=== PATIENT | female | born 1965 | race Caucasian/White ===

== ENCOUNTER 2018-07-19 09:03 | Observation (INO) | payer OTHER ==
[~2018-07-19] VITALS: Ht 157.5 cm; Wt 52.5 kg
[~2018-07-19 09:03] MED LIST: Cyclobenzaprine5 MG PO; IBUP800 PO; METPRE4DP PO
[2018-07-19 09:54] LABS: BASOPHILS ABSOLUTE AUTO 0.06 K/mm3 (0.00-0.23); BASOPHILS PERCENT AUTO 1 % (0-2); EOSINOPHILS ABSOLUTE AUTO 0.05 K/mm3 (0.00-0.68); EOSINOPHILS PERCENT AUTO 1 % (0-6); Hematocrit 41.5 % (33.0-51.0); Hemoglobin 14.8 g/dL (11.5-16.0); IMMATURE GRAN ABSOLUTE AUTO 0.06 K/mm3 (0.00-0.10); IMMATURE GRAN PERCENT AUTO 1 % (0-1); LYMPHOCYTES ABSOLUTE AUTO 1.95 K/mm3 (0.84-5.20); LYMPHOCYTES PERCENT AUTO 18 % (21-46); MONOCYTES ABSOLUTE AUTO 0.48 K/mm3 (0.16-1.47); MONOCYTES PERCENT AUTO 4 % (4-13); Mean Corpuscular HGB Conc 35.7 g/dL (31.5-36.5); Mean Corpuscular Volume 95 fL (80-100); Mean Platelet Volume 10.2 fL (9.1-12.4); NEUTROPHILS ABSOLUTE AUTO 8.27 K/mm3 (1.96-9.15); NEUTROPHILS PERCENT AUTO 76 % (41-73); Platelet Count 272 K/mm3 (150-400); RDW Coefficient Variation 11.9 % (11.7-14.2); RDW Standard Deviation 41.7 fL (35.1-46.3); Red Blood Cell Count 4.35 M/mm3 (3.80-5.20); White Blood Cell Count 10.87 K/mm3 (4.00-11.30)
[2018-07-19 10:11] LABS: Alanine Aminotransfer (ALT/SGP 17 U/L (12-78); Albumin, Blood 3.4 g/dL (3.4-5.0); Albumin/Globulin Ratio 0.9 (0.8-1.8); Alk Phos 119 U/L (50-136); Anion Gap 7 mmol/L (6-16); Aspartate Aminotrans (AST/SGOT 14 U/L (12-37); Bilirubin, Total 0.5 mg/dL (0.1-1.0); Blood Urea Nitrogen 3 mg/dL (8-24); Bun/Creatinine Ratio 5.8 (12.0-20.0); CO2, Blood 28 mmol/L (21-32); Calcium, Blood 8.4 mg/dL (8.5-10.1); Chloride, Blood 98 mmol/L (98-108); Creatinine, Blood 0.52 mg/dL (0.40-1.00); Globulin, Blood 3.8 g/dL (2.2-4.0); Glomerular Filtration Rate >60 (60-); Glucose, Blood 433 mg/dL (70-99); Potassium, Blood 3.6 mmol/L (3.5-5.5); Sodium, Blood 133 mmol/L (136-145); Total Protein, Blood 7.2 g/dL (6.4-8.2); Troponin I 0.026 ng/mL (0.000-0.040)
[2018-07-20 03:35] LABS: Hematocrit 38.7 % (33.0-51.0); Hemoglobin 13.5 g/dL (11.5-16.0); Mean Corpuscular HGB 33.7 pg (26.0-34.0); Mean Corpuscular HGB Conc 34.9 g/dL (31.5-36.5); Mean Corpuscular Volume 97 fL (80-100); Mean Platelet Volume 10.2 fL (9.1-12.4); Platelet Count 264 K/mm3 (150-400); RDW Coefficient Variation 12.1 % (11.7-14.2); RDW Standard Deviation 43.7 fL (35.1-46.3); Red Blood Cell Count 4.01 M/mm3 (3.80-5.20); White Blood Cell Count 11.05 K/mm3 (4.00-11.30)
[2018-07-20 03:53] LABS: Anion Gap 7 mmol/L (6-16); Blood Urea Nitrogen 5 mg/dL (8-24); Bun/Creatinine Ratio 11.6 (12.0-20.0); CO2, Blood 28 mmol/L (21-32); Calcium, Blood 8.5 mg/dL (8.5-10.1); Chloride, Blood 102 mmol/L (98-108); Creatinine, Blood 0.43 mg/dL (0.40-1.00); Glomerular Filtration Rate >60 (60-); Glucose, Blood 168 mg/dL (70-99); Potassium, Blood 3.5 mmol/L (3.5-5.5); Sodium, Blood 137 mmol/L (136-145)
[2018-07-20] MEDS ORDERED: Aspir-Trin325 MG PO (09:08)
[2018-07-20] MEDS ORDERED: ACET325 PO (09:08)
[2018-07-20] MEDS ORDERED: GLIM2 PO (09:09)
[2018-07-20] MEDS ORDERED: METO50 PO (09:09)
[2018-07-20] MEDS ORDERED: Advil200 M1 PO (09:09)
[2018-07-22] MEDS ORDERED: Nystop60 GM TOP (10:04)
[2018-07-22] MEDS ORDERED: Norco 5-325 Ta1 EACH PO (10:04)
== END 2018-07-20 11:51 | disposition home or self-care (01) ==
LOC: ER 09:03 → PCU 09:04
PROVIDERS: Emergency Medicine; Hospitalist
DX: R07.9 Chest pain, unspecified (principal); R94.31 Abnormal electrocardiogram [ECG] [EKG]; E11.65 Type 2 diabetes mellitus with hyperglycemia; F17.210 Nicotine dependence, cigarettes, uncomplicated; I42.1 Obstructive hypertrophic cardiomyopathy; I11.9 Hypertensive heart disease without heart failure; I16.1 Hypertensive emergency; Z85.42 Personal history of malignant neoplasm of other parts of uterus; Z79.82 Long term (current) use of aspirin; Z79.899 Other long term (current) drug therapy
CPT/HCPCS: 36415; 71045; 71275; 74175; 80048; 80053; 82947; 84484; 85025; 85027; 93005; 93010; 93306; 96372; 96374; 96375; 96376; 99285-25; G0378; J1650; J2405; J3010; Q9967

== ENCOUNTER 2018-11-01 14:05 | Emergency (ER) | payer OTHER ==
[~2018-11-01] VITALS: Ht 160 cm; Wt 55.3 kg
[~2018-11-01 14:05] MED LIST changes: +ACET325 PO; +ACIDOPHILUS LA1 EACH PO; +Acetaminophen325 M1 PO; +Advil200 M1 PO; +Aspir-Trin325 MG PO; +CIPR500 PO; +GLIM2 PO; +HYDR1TAB94 PO; +LISI20 PO; +METO50 PO; +METR500 PO; +Norco 5-325 Ta1 EACH PO; +Nystop60 GM TOP; +ONDA4ODT MM
[2018-11-01 14:35] LABS: BASOPHILS ABSOLUTE AUTO 0.07 K/mm3 (0.00-0.23); BASOPHILS PERCENT AUTO 0 % (0-2); EOSINOPHILS ABSOLUTE AUTO 0.07 K/mm3 (0.00-0.68); EOSINOPHILS PERCENT AUTO 0 % (0-6); Hematocrit 43.5 % (33.0-51.0); Hemoglobin 15.6 g/dL (11.5-16.0); IMMATURE GRAN ABSOLUTE AUTO 0.05 K/mm3 (0.00-0.10); IMMATURE GRAN PERCENT AUTO 0 % (0-1); LYMPHOCYTES ABSOLUTE AUTO 3.67 K/mm3 (0.84-5.20); LYMPHOCYTES PERCENT AUTO 23 % (21-46); MONOCYTES ABSOLUTE AUTO 0.94 K/mm3 (0.16-1.47); MONOCYTES PERCENT AUTO 6 % (4-13); Mean Corpuscular HGB 32.5 pg (26.0-34.0); Mean Corpuscular HGB Conc 35.9 g/dL (31.5-36.5); Mean Corpuscular Volume 91 fL (80-100); Mean Platelet Volume 10.1 fL (9.1-12.4); NEUTROPHILS ABSOLUTE AUTO 11.37 K/mm3 (1.96-9.15); NEUTROPHILS PERCENT AUTO 70 % (41-73); Platelet Count 329 K/mm3 (150-400); RDW Coefficient Variation 12.1 % (11.7-14.2); White Blood Cell Count 16.17 K/mm3 (4.00-11.30)
[2018-11-01 15:41] LABS: Alanine Aminotransfer (ALT/SGP 19 U/L (12-78); Albumin, Blood 4.4 g/dL (3.4-5.0); Albumin/Globulin Ratio 1.3 (0.8-1.8); Alk Phos 78 U/L (50-136); Anion Gap 9 mmol/L (6-16); Aspartate Aminotrans (AST/SGOT 16 U/L (12-37); Bilirubin, Total 0.4 mg/dL (0.1-1.0); Blood Urea Nitrogen 11 mg/dL (8-24); Bun/Creatinine Ratio 18.2 (12.0-20.0); CO2, Blood 28 mmol/L (21-32); Calcium, Blood 9.1 mg/dL (8.5-10.1); Chloride, Blood 92 mmol/L (98-108); Globulin, Blood 3.5 g/dL (2.2-4.0); Glomerular Filtration Rate >60 (60-); Glucose, Blood 326 mg/dL (70-99); Potassium, Blood 3.7 mmol/L (3.5-5.5); Sodium, Blood 129 mmol/L (136-145); Total Protein, Blood 7.9 g/dL (6.4-8.2)
[2018-11-01] MEDS ORDERED: Zofran8 MG PO (17:08)
[2018-11-01] MEDS ORDERED: HYDR1TAB94 PO (17:08)
[2018-11-01] MEDS ORDERED: Augmentin 875-1 EACH PO (17:08)
[2018-11-01 17:12] LABS: Source, Urine Clean Catch
[2018-11-01 17:20] LABS: Appearance, Urine Clear (Clear); Bilirubin, Urine Neg (Neg); Blood, Urine Neg (Neg); Color, Urine Yellow (P-Yellow); Glucose Qualitative, Urine 3+ (Neg); Ketones, Urine Neg (Neg); Leukocyte Esterase, Urine Neg (Neg); Nitrite, Urine Neg (Neg); Protein, Urine Neg (Neg); Urobilinogen, Urine NORM (Normal)
== END 2018-11-01 18:13 | disposition home or self-care (01) ==
LOC: ER 14:05
PROVIDERS: Physician Assistant
DX: K57.32 Diverticulitis of large intestine without perforation or abscess without bleeding (principal); Z79.899 Other long term (current) drug therapy; Z79.82 Long term (current) use of aspirin; F17.210 Nicotine dependence, cigarettes, uncomplicated
CPT/HCPCS: 36415; 74177; 80053; 81003; 83690; 85025; 96361; 96365; 96375; 99284-25; J0295; J2405; J3010; J7120; Q9967

== ENCOUNTER 2019-02-17 14:37 | Observation (INO) | payer OTHER ==
[~2019-02-17] VITALS: Ht 157.5 cm; Wt 56.7 kg
[~2019-02-17 14:37] MED LIST changes: +ASCO500 PO; +Augmentin 875-1 EACH PO; +METO100ER PO; -METO50 PO; +Zofran8 MG PO
[2019-02-17 15:27] LABS: BASOPHILS ABSOLUTE AUTO 0.06 K/mm3 (0.00-0.23); BASOPHILS PERCENT AUTO 1 % (0-2); EOSINOPHILS PERCENT AUTO 1 % (0-6); Hematocrit 42.6 % (33.0-51.0); IMMATURE GRAN ABSOLUTE AUTO 0.03 K/mm3 (0.00-0.10); IMMATURE GRAN PERCENT AUTO 0 % (0-1); LYMPHOCYTES ABSOLUTE AUTO 4.27 K/mm3 (0.84-5.20); LYMPHOCYTES PERCENT AUTO 35 % (21-46); MONOCYTES ABSOLUTE AUTO 0.99 K/mm3 (0.16-1.47); MONOCYTES PERCENT AUTO 8 % (4-13); Mean Corpuscular HGB 32.5 pg (26.0-34.0); Mean Corpuscular HGB Conc 35.2 g/dL (31.5-36.5); Mean Corpuscular Volume 92 fL (80-100); Mean Platelet Volume 10.2 fL (9.1-12.4); NEUTROPHILS ABSOLUTE AUTO 6.84 K/mm3 (1.96-9.15); NEUTROPHILS PERCENT AUTO 56 % (41-73); Platelet Count 326 K/mm3 (150-400); RDW Coefficient Variation 11.9 % (11.7-14.2); RDW Standard Deviation 40.7 fL (35.1-46.3); Red Blood Cell Count 4.62 M/mm3 (3.80-5.20); White Blood Cell Count 12.29 K/mm3 (4.00-11.30)
[2019-02-17 16:17] LABS: Alanine Aminotransfer (ALT/SGP 16 U/L (12-78); Albumin/Globulin Ratio 1.1 (0.8-1.8); Alk Phos 90 U/L (50-136); Anion Gap 8 mmol/L (6-16); Aspartate Aminotrans (AST/SGOT 16 U/L (12-37); Bilirubin, Total 0.6 mg/dL (0.1-1.0); Blood Urea Nitrogen 5 mg/dL (8-24); Bun/Creatinine Ratio 10.4 (12.0-20.0); CO2, Blood 26 mmol/L (21-32); Calcium, Blood 8.9 mg/dL (8.5-10.1); Chloride, Blood 101 mmol/L (98-108); Creatinine, Blood 0.48 mg/dL (0.40-1.00); Globulin, Blood 3.5 g/dL (2.2-4.0); Glomerular Filtration Rate >60 (60-); Glucose, Blood 115 mg/dL (70-99); Potassium, Blood 3.5 mmol/L (3.5-5.5); Sodium, Blood 135 mmol/L (136-145); Total Protein, Blood 7.5 g/dL (6.4-8.2); Troponin I 0.034 ng/mL (0.000-0.040)
[2019-02-17] MEDS ORDERED: ATOR40TA PO (16:52)
[2019-02-17] MEDS ORDERED: OMEPRAZOLE MAGN20 MG PO (16:53)
[2019-02-17] MEDS ORDERED: ALPR.25 PO (16:54)
[2019-02-17] MEDS ORDERED: SERT25 PO (16:56)
--- NOTE | 2019-02-17 19:23 | NUR ---
transfer report from Dipak SMITH in ER on PT being admitted Tele OBS for 3 day hx of increased lt chest pain that radiated to lt upper back. Medicated in ER with helpful effect. Hx of Genetic cardiomyopathy and cardiac stents 2016. Await admission.
[2019-02-17] MEDS ORDERED: ASPI81CH PO (19:43)
[2019-02-17] MEDS ORDERED: LISI20 PO (19:46)
--- NOTE | 2019-02-18 01:27 | NUR ---
PT continues to lt chest pain sharp that radiates to lt upper back. 2nd troponin negative also. medicated with 4 mg iv morphine and 650 mg tylenol with decrase of pain to 4/10. Pt has cardiomyopathy and 1 cardiac stent since 2016. has been working on garden with Aunt recently prior to chest pain starting.
--- NOTE | 2019-02-18 03:37 | NUR ---
PT resting quietly for several hours after 4 mg iv morphine and 650 mg po tylenol given but then lt chest pain returned 7/10 sharp below lt breast that radiates to lt upper back. Slight shortness of breath and PT agrees to oxygen use. Reviewed EKG and ER note and called DR CALVIN to discuss reoccuring chest pain now on day 4. Lung sounds coarse throughout and PT has hypereactive bowel sounds. Very poor appetite, diverticulitis about 1 month ago with colitis. PT had severe rt sided abd pain at that time. She denies nausea or abd pain currently. BP stable bradycardia continues with p 48 to 55 BPM. says she will increase frequency of morphine available to q 2 hours. PT has DNR status. Will assess for any relief of chest pain with oxygen use and medicate as per emar.
--- NOTE | 2019-02-18 05:23 | NUR ---
PT REMOVED OXYGEN AND HAD 4 MG IV MORPHINE FOR LT SIDED CHEST /BREAST PAIN THAT RADIATES TO LT UPPER BACK. kPAD PROVIDED AND PT USED FOR A FEW MINUTES AND REMOVED. SAID 4 MG IV MORPHINE ELIMINATED PAIN.
[2019-02-18 07:35] LABS: CHOL/HDL RATIO 5.2; Cholesterol 156 mg/dL (50-200); HDL Cholesterol 30 mg/dL (>39); Low Density Lipoprotein Chol 89 mg/dL (0-110); Triglycerides 186 mg/dL (30-160); Very Low Density Lipoprot Chol 37 mg/dL (6-32)
[2019-02-18] MEDS ORDERED: TRAM50 PO (14:42)
[2019-02-18] MEDS ORDERED: ASPI325EC PO (14:43)
[2019-02-18] MEDS ORDERED: METO50 PO (14:44)
[2019-02-18] MEDS ORDERED: Nicoderm Cq1 EAC1 TOP (14:46)
--- NOTE | 2019-02-18 15:21 | NUR ---
DISCHARGE PT DISCHARGED TO HOME. THIS RN EXPLAINED DISCHARGE INSTRUCTIONS AND MEDICATIONS TO PT AND SHE REPORTS SHE UNDERSTANDS. IV REMOVED WITHOUT DIFFICULTY. MEDICATIONS FAXED TO REQUESTED PHARMACY. PT INDEPENDENT TO PRIVATE CARE. BELONGINGS WITH PT.
--- NOTE | 2019-02-18 15:34 | NUR ---
Spiritual Care visit: Jenise appeared irritated and told me she "has been waiting to leave since this morning!" She also told me she "sorta" didn't feel any better than when she got here. She was dismissive of conversation. She is being discharged soon.
== END 2019-02-18 15:22 | disposition home or self-care (01) ==
LOC: ER 14:37 → MEDS 14:38 → ENPENDDIS 02-18 13:33 → MEDS 02-18 15:22
PROVIDERS: Physician Assistant; ADMIT Internal Medicine
DX: R07.89 Other chest pain (principal); I42.2 Other hypertrophic cardiomyopathy; R00.1 Bradycardia, unspecified; I10 Essential (primary) hypertension; I25.10 Atherosclerotic heart disease of native coronary artery without angina pectoris; E11.9 Type 2 diabetes mellitus without complications; E78.5 Hyperlipidemia, unspecified; F17.200 Nicotine dependence, unspecified, uncomplicated; Z88.8 Allergy status to other drugs, medicaments and biological substances; Z79.899 Other long term (current) drug therapy; Z79.82 Long term (current) use of aspirin; Z79.4 Long term (current) use of insulin
CPT/HCPCS: 36415; 71046; 80053; 80061; 82947; 83036; 83880; 84484; 85025; 93005; 93010; 96361; 96374; 96375; 99285-25; J1170; J1650; J1815; J2270; J2405; J7030

== ENCOUNTER 2019-06-19 13:30 | Observation (INO) | payer OTHER ==
[~2019-06-19] VITALS: Ht 157.5 cm; Wt 64.6 kg
[~2019-06-19 13:30] MED LIST changes: +ALPR.25 PO; +ASPI81CH PO; +ATOR40TA PO; +Aspirin EC81 MG PO; +Lisinopril2.5 MG PO; +Nicoderm Cq1 EAC1 TOP; +OMEPRAZOLE MAGN20 MG PO; +SERT25 PO; +TRAM50 PO
[2019-06-19 14:00] LABS: BASOPHILS ABSOLUTE AUTO 0.06 K/mm3 (0.00-0.23); BASOPHILS PERCENT AUTO 1 % (0-2); EOSINOPHILS PERCENT AUTO 1 % (0-6); Hematocrit 39.7 % (33.0-51.0); Hemoglobin 13.5 g/dL (11.5-16.0); IMMATURE GRAN ABSOLUTE AUTO 0.03 K/mm3 (0.00-0.10); IMMATURE GRAN PERCENT AUTO 0 % (0-1); LYMPHOCYTES ABSOLUTE AUTO 2.84 K/mm3 (0.84-5.20); LYMPHOCYTES PERCENT AUTO 27 % (21-46); MONOCYTES ABSOLUTE AUTO 0.59 K/mm3 (0.16-1.47); MONOCYTES PERCENT AUTO 6 % (4-13); Mean Corpuscular Volume 100 fL (80-100); Mean Platelet Volume 10.3 fL (9.1-12.4); NEUTROPHILS ABSOLUTE AUTO 6.99 K/mm3 (1.96-9.15); NEUTROPHILS PERCENT AUTO 66 % (41-73); Platelet Count 234 K/mm3 (150-400); RDW Coefficient Variation 12.6 % (11.7-14.2); RDW Standard Deviation 46.9 fL (35.1-46.3); Red Blood Cell Count 3.97 M/mm3 (3.80-5.20); White Blood Cell Count 10.61 K/mm3 (4.00-11.30)
[2019-06-19 14:22] LABS: Alanine Aminotransfer (ALT/SGP 16 U/L (12-78); Albumin, Blood 3.6 g/dL (3.4-5.0); Alk Phos 77 U/L (50-136); Anion Gap 10 mmol/L (6-16); Aspartate Aminotrans (AST/SGOT 15 U/L (12-37); Bilirubin, Total 0.3 mg/dL (0.1-1.0); Blood Urea Nitrogen 5 mg/dL (8-24); Bun/Creatinine Ratio 10.2 (12.0-20.0); CO2, Blood 25 mmol/L (21-32); Calcium, Blood 8.6 mg/dL (8.5-10.1); Chloride, Blood 102 mmol/L (98-108); Creatinine, Blood 0.49 mg/dL (0.40-1.00); Globulin, Blood 3.5 g/dL (2.2-4.0); Glomerular Filtration Rate >60 (60-); Glucose, Blood 253 mg/dL (70-99); Potassium, Blood 3.2 mmol/L (3.5-5.5); Sodium, Blood 137 mmol/L (136-145); Total Protein, Blood 7.1 g/dL (6.4-8.2); Troponin I <0.015 ng/mL (0.000-0.040)
[2019-06-19 17:52] LABS: Magnesium, Blood 1.7 mg/dL (1.6-2.4)
[2019-06-19 17:54] LABS: Thyroid Stimulating Hormone 1.28 uIU/mL (0.360-4.800)
[2019-06-19] MEDS ORDERED: TRAZ100 PO (18:03)
[2019-06-19] MEDS ORDERED: GABA100 PO (18:03)
--- NOTE | 2019-06-19 20:53 | NUR ---
PATIENT COMPLAINING OF SHARP MIDSTERNUM CHEST PAIN 05/25. AFTER RETRIEVING PRN PAIN MEDICATION TRAMADOL PATIENT STATED THE PAIN WAS A 6 OR 7 NOW. PATIENT STATES IT IS GOING DOWN. GIVEN TRAMADOL. PATIENT ARRIVED FROM ED AT 2039. ABLE TO STAND AND TRANSFER TO THE BED INDEPENDENTLY. PATIENT STATES SHE HAS HAD CONSTANT CHEST PAIN FOR A COUPLE OF DAYS AND JUST REALLY WANTS TO SLEEP.
--- NOTE | 2019-06-19 22:19 | NUR ---
PATIENT WOKE UP TO HAVE LABS DRAWN. STATES THAT SHE IS HAVING 8/10 SHARP MIDSTERNUM SHARP CHEST PAIN THAT IS INTERMITENT. GIVEN PRN FENTANYL AND TAKEN BP, WHICH SBP WAS 188. CALLED DR. VILLAVICENCIO WHO ORDERED FOR ONE TIME DOSE OF COREG 12.5 MG PO AND INCREASE FENTANYL DOSE FROM 12.5-25MCG TO 25-50 Q2H PRN FOR PAIN. NO NEED FOR EKG AT THIS TIME. NO FURTHER NEEDS AT THIS TIME.
--- NOTE | 2019-06-19 23:55 | NUR ---
PATIENT CONTINUES TO COMPLAIN OF CHEST PAIN AND SBP 184. CALLED DR. VILLAVICENCIO WHO ORDERED TO D/C FENTANYL AND START DILAUDID 0.5-1MG IV Q2H PRN FOR PAIN. GIVEN CLONIDINE 0.1MG X1 AND SENNS PLUS 2 TABS X1 DUE TO CONSTIPATING PROPERTIES OF DILAUDID.
--- NOTE | 2019-06-20 02:12 | NUR ---
CALLED CONSULT IN TO CARDIOLOGY FOR [place].
[2019-06-20 05:55] LABS: BASOPHILS ABSOLUTE AUTO 0.05 K/mm3 (0.00-0.23); BASOPHILS PERCENT AUTO 1 % (0-2); EOSINOPHILS ABSOLUTE AUTO 0.14 K/mm3 (0.00-0.68); EOSINOPHILS PERCENT AUTO 2 % (0-6); Hematocrit 35.5 % (33.0-51.0); Hemoglobin 11.9 g/dL (11.5-16.0); IMMATURE GRAN ABSOLUTE AUTO 0.02 K/mm3 (0.00-0.10); IMMATURE GRAN PERCENT AUTO 0 % (0-1); LYMPHOCYTES ABSOLUTE AUTO 3.01 K/mm3 (0.84-5.20); LYMPHOCYTES PERCENT AUTO 44 % (21-46); MONOCYTES ABSOLUTE AUTO 0.43 K/mm3 (0.16-1.47); MONOCYTES PERCENT AUTO 6 % (4-13); Mean Corpuscular HGB 33.3 pg (26.0-34.0); Mean Corpuscular HGB Conc 33.5 g/dL (31.5-36.5); Mean Corpuscular Volume 99 fL (80-100); Mean Platelet Volume 9.9 fL (9.1-12.4); NEUTROPHILS ABSOLUTE AUTO 3.25 K/mm3 (1.96-9.15); NEUTROPHILS PERCENT AUTO 47 % (41-73); Platelet Count 169 K/mm3 (150-400); RDW Coefficient Variation 12.7 % (11.7-14.2); RDW Standard Deviation 46.6 fL (35.1-46.3); Red Blood Cell Count 3.57 M/mm3 (3.80-5.20)
[2019-06-20 06:10] LABS: International Normalized Ratio 1.03; Prothrombin Time Results 10.9 Sec (9.7-11.5)
[2019-06-20 06:12] LABS: Alanine Aminotransfer (ALT/SGP 14 U/L (12-78); Albumin/Globulin Ratio 1.1 (0.8-1.8); Alk Phos 59 U/L (50-136); Anion Gap 3 mmol/L (6-16); Aspartate Aminotrans (AST/SGOT 15 U/L (12-37); Bilirubin, Total 0.3 mg/dL (0.1-1.0); Blood Urea Nitrogen 5 mg/dL (8-24); Bun/Creatinine Ratio 7.7 (12.0-20.0); CO2, Blood 33 mmol/L (21-32); Calcium, Blood 8.3 mg/dL (8.5-10.1); Chloride, Blood 107 mmol/L (98-108); Creatinine, Blood 0.65 mg/dL (0.40-1.00); Globulin, Blood 2.8 g/dL (2.2-4.0); Glomerular Filtration Rate >60 (60-); Glucose, Blood 132 mg/dL (70-99); Potassium, Blood 4.4 mmol/L (3.5-5.5); Sodium, Blood 143 mmol/L (136-145); Total Protein, Blood 5.8 g/dL (6.4-8.2)
--- NOTE | 2019-06-20 07:26 | NUR ---
PATIENT ABLE TO SLEEP WELL AFTER RECIEVING DILAUDID. PATIENT HAD NO FURTHER CHEST PAIN. PATIENT MOVING AROUND INDEPENDENTLY IN THE BED.
--- NOTE | 2019-06-20 09:24 | NUR ---
NURSING PCU DAYSHIFT: Assumed care of pt at approx 0700. A/O, pleasant, cooperative w/care. Denies any pain/discomfort at rest. Ambulates independently and w/o difficulty. Steri strips to LCW r/t recent ICD placement. Tele in place, NSR BBB, no c/o CP/pressure, SBP 160's prior to a.m. meds, no noted edema. L/S cta t/o, O2 sat stable on RA, denies dyspnea, no noted cough. Abd SNT, BT+, voiding w/o difficulty per pt. PIV x1, s/l. No s/s of acute distress at this time. Call light in reach and pt is able to use w/o difficulty. PMD at bedside, new d/o received. Plan for cardiology to meet w/pt this a.m. Pt denies any current needs or questions regarding plan of care, refrigeration service technician currently at bedside, continue to monitor for changes.
--- NOTE | 2019-06-20 10:40 | NUR ---
DEVICE INTERROGATION DONE PER DR. CHAUDHARI ORDER. NORMAL FUNCTIONING SINGLE CHAMBER ICD. NORMAL VENTRICULAR SENSING AND CAPTURE. VENTRICULAR LEAD IMPEDANCE 397 OHMS. VENTRICULAR CAPTURE THRESHOLD 0.7V@0.4ms.Architectural Superintendent <1%. NO VT OR NSVT EPISODES NOTED. APM-RT NOTED ON 06/19/19 AT 14:21. APPEARS TO BE NOISE. INFORMATION GIVEN TO DR. CHAUDHARI. TO BE ESTABLISHED IN CLINIC. NEXT CHECK 08/21/19 AT 11:00 AM.
--- NOTE | 2019-06-20 17:12 | NUR ---
NURSING PCU DAYSHIFT SUMMARY: Seen by bolt maker and PMD this a.m., new d/o received. ECHO and ICD interrogation completed as ordered. Shortly after 1200, pt began to c/o 8/10 midsternal CP post ambulation outside, VS and EKG completed, bolt maker notified, IV dilaudid administered w/no relief. Cardio at bedside this afternoon for assessment, labs drawn, resting portion of stress test completed. Pt continued to c/o 8/10 CP t/o afternoon, PO tramadol administered, pt appears to be resting comfortably at this time. Plan for lexiscan portion of stress test tomorrow, NPO after breakfast. Pt denies any current needs or questions regarding plan of care. Remains independent in room, ambulates outside to smoke (education provided), no c/o dizziness/light headedness. Call light remains in reach, continue to monitor until rpt is given to NOC RN.
--- NOTE | 2019-06-20 21:00 | NUR ---
ASSUMED CARE OF PT, REPORT RCV'D FROM SARAH LINARES. PT ALERT AND ORIENTED COMPLAINING OF UNCHANGED CONTINUOUS CHEST PAIN AND RESTLESS LEGS. PT REQUESTING HER HOME DOSE OF GABAPENTIN. PHONE CALL TO ARTEMIO VILLAVICENCIO NP TO RESTART GABAPENTIN AND REGARDING PT'S CONTINUED CHEST PAIN. ORDERS RECEIVED. PT ABLE TO AMBULATE INDEPENDENTLY WITH NO DIFFICULTY. VSS. SEE FULL SHIFT ASSESSMENT.
[2019-06-21 03:53] LABS: Hematocrit 36.2 % (33.0-51.0); Hemoglobin 12.3 g/dL (11.5-16.0); Mean Corpuscular HGB 33.4 pg (26.0-34.0); Mean Corpuscular Volume 98 fL (80-100); Platelet Count 181 K/mm3 (150-400); RDW Coefficient Variation 12.6 % (11.7-14.2); RDW Standard Deviation 45.8 fL (35.1-46.3); Red Blood Cell Count 3.68 M/mm3 (3.80-5.20); White Blood Cell Count 7.75 K/mm3 (4.00-11.30)
[2019-06-21 04:11] LABS: Anion Gap 3 mmol/L (6-16); Blood Urea Nitrogen 7 mg/dL (8-24); CO2, Blood 33 mmol/L (21-32); Calcium, Blood 8.7 mg/dL (8.5-10.1); Chloride, Blood 105 mmol/L (98-108); Creatinine, Blood 0.64 mg/dL (0.40-1.00); Glomerular Filtration Rate >60 (60-); Glucose, Blood 125 mg/dL (70-99); Potassium, Blood 4.3 mmol/L (3.5-5.5); Sodium, Blood 141 mmol/L (136-145)
--- NOTE | 2019-06-21 06:23 | NUR ---
SHIFT SUMMARY PT CONTINUES TO C/O CHEST PAIN THAT IS UNCHANGED SINCE ADMISSION. PT DENIES NEW OR WORSENING PAIN, NO N/V OR DIAPHORESIS. PT HAD PERIOD OF HYPERTENSION THIS MORNING WITH SBP>200, GOAL TO MAINTAIN SBP<160 PER HOSPITALIST WITH Q6 HYDRALAZINE. PT ABLE TO AMBULATE TO BATHROOM WITH NO C/O OR SIGNS OF DIZZINESS/LIGHTHEADED. PT REMAINS ON RA WITH GOOD O2 SATS, HR: 50-60'S. LEFT UPPER CHEST STERI-STRIPS WHERE PACEMAKER WAS PLACED 3-WEEKS AGO C/D/I. PT REPORTS THAT CHEST PAIN DID NOT BEGIN AFTER PLACEMENT OF PACEMAKER, BUT "2 DAYS AGO". SEE PREVIOUS NOTES FROM THIS SHIFT. WILL REPORT TO DAYSHIFT NURSE.
--- NOTE | 2019-06-21 15:08 | NUR ---
BP ELEVATED. ISTRATE CALLED. NEW ORDERS FOR ADDITIONAL DOSE OF CLONIDINE PO. ATTEMPTED TO CALL DR. CHAUDHARI. AWAITING RETURN CALL. WILL CONTINUE TO MONITOR CLOSELY. PT DENIES ANY CP AT THIS TIME.
--- NOTE | 2019-06-21 15:35 | NUR ---
SPOKE WITH DR. CHAUDHARI ABOUT BP. NEW ORDERS PROVIDED. WILL MEDICATE PER EMAR.
--- NOTE | 2019-06-21 17:35 | NUR ---
SHIFT SUMMARY PT ALERT AND ORIENTED. BP IMPROVED SEE VITAL SIGNS. PT DENIES ANY CP AT THIS TIME, BUT HAS COMPLAINED INTERMITTENTLY AND MEDICATED NEEDED. NO CHANGES ON TELEMETRY NOTED. PT INDEPENDENT IN ROOM. CARMEN COMPLETED TODAY. PT EDUCATED ON RISK OF GOING OUTSIDE TO SMOKE. SMOKING CESSATION INFORMATION PROVIDED. WILL CONTINUE TO MONITOR AND REPORT TO ONCOMING RN. CALL LIGHT IN REACH.
[2019-06-22 04:20] LABS: Hematocrit 34.4 % (33.0-51.0); Hemoglobin 11.5 g/dL (11.5-16.0); Mean Corpuscular HGB Conc 33.4 g/dL (31.5-36.5); Mean Corpuscular Volume 99 fL (80-100); Mean Platelet Volume 10.6 fL (9.1-12.4); Platelet Count 177 K/mm3 (150-400); RDW Coefficient Variation 12.4 % (11.7-14.2); RDW Standard Deviation 44.7 fL (35.1-46.3); Red Blood Cell Count 3.49 M/mm3 (3.80-5.20); White Blood Cell Count 6.71 K/mm3 (4.00-11.30)
[2019-06-22 04:38] LABS: Anion Gap 3 mmol/L (6-16); Blood Urea Nitrogen 6 mg/dL (8-24); CO2, Blood 34 mmol/L (21-32); Calcium, Blood 8.6 mg/dL (8.5-10.1); Chloride, Blood 103 mmol/L (98-108); Creatinine, Blood 0.55 mg/dL (0.40-1.00); Glomerular Filtration Rate >60 (60-); Glucose, Blood 135 mg/dL (70-99); Sodium, Blood 140 mmol/L (136-145)
--- NOTE | 2019-06-22 05:58 | NUR ---
END OF SHIFT SUMMARY PT ALERT AND ORIENTED, PLEASANT WITH STAFF. CP CONTINUES, UNCHANGED IN CHARACTERSTICS. SHARP IN NATURE. HAVE BEEN USING TRAMADOL AND DILAUDID FOR THIS, THEY ARE SUCCESFUL FOR A SHORT TIME BUT THEN THE PAIN RETURNS. NO ST ELEVATION NOTED ON TELEMETRY. PT HAS BEEN EXPERIENCING TIMES OF HTN, MEDICATED PER EMAR. PT HAS BEEN UP OUT OF BED MULTIPLE TIMES THIS SHIFT. HAS USED CALL LIGHT APPROPRIATELY. WILL CONTINUE TO MONITOR PT UNTIL SHIFT CHANGE.
[2019-06-22] MEDS ORDERED: ASCORBIC ACID500 MG PO (09:39)
[2019-06-22] MEDS ORDERED: CARV25 PO (09:40)
[2019-06-22] MEDS ORDERED: CLON.1 PO (09:41)
[2019-06-22] MEDS ORDERED: Senna Plus Tab1 EACH PO (09:41)
[2019-06-22] MEDS ORDERED: LORA1 PO (09:42)
[2019-06-22] MEDS ORDERED: TRAM50 PO (09:43)
[2019-06-22] MEDS ORDERED: ONDA4ODT MM (09:43)
[2019-06-22] MEDS ORDERED: Calan Sr120 MG PO (09:44)
--- NOTE | 2019-06-22 10:56 | NUR ---
DISCHARGE: DISCHARGE PACKET PRINTED, EDUCATION GIVEN. MEDS CALLED TO [facility] SCRIPTS FOR ATIVAN AND TRAMADOL SENT WITH PT. JENNIFER HILARIO'Gerber. PT LEFT UNIT ON FOOT ACCOMPANIED BY NEERU
[2019-07-17] MEDS ORDERED: GLIM2 PO (15:39)
[2019-07-17] MEDS ORDERED: Neurontin 100100 MG PO (15:39)
[2019-07-17] MEDS ORDERED: TRAZ100 PO (15:40)
[2019-07-17] MEDS ORDERED: Cymbalta60 MG PO (15:40)
[2019-07-17] MEDS ORDERED: ALEN70 PO (15:40)
[2019-07-17] MEDS ORDERED: Verapamil ER100 MG PO (15:41)
[2019-07-17] MEDS ORDERED: CLON.1 PO (15:41)
[2019-07-17] MEDS ORDERED: ATOR40TA (15:41)
[2019-07-17] MEDS ORDERED: Lisinopril2.5 MG PO (15:42)
[2019-07-17] MEDS ORDERED: DOC250 PO (15:43)
[2019-07-17] MEDS ORDERED: CARV25 PO (15:43)
== END 2019-06-22 10:38 | disposition home or self-care (01) ==
LOC: ER 13:30 → PCU 13:31
PROVIDERS: Emergency Medicine; Family Medicine; Nurse Practitioner Acute Care; ADMIT Internal Medicine
DX: I16.0 Hypertensive urgency (principal); R07.89 Other chest pain; E11.9 Type 2 diabetes mellitus without complications; E78.5 Hyperlipidemia, unspecified; F17.210 Nicotine dependence, cigarettes, uncomplicated; I42.1 Obstructive hypertrophic cardiomyopathy; E87.6 Hypokalemia; Z79.01 Long term (current) use of anticoagulants; I25.10 Atherosclerotic heart disease of native coronary artery without angina pectoris; Z95.5 Presence of coronary angioplasty implant and graft; Z79.82 Long term (current) use of aspirin; Z79.899 Other long term (current) drug therapy
CPT/HCPCS: 36415; 71046; 78452; 80048; 80053; 82947; 83690; 83735; 83880; 84443; 84484; 85025; 85027; 85379; 85610; 93005; 93010; 93017; 93282; 93306; 96365; 96372-59; 96374; 96375; 96376; 99285-25; A9500; C1751; G0378; J0360; J0706; J1170; J1650; J2405; J2785; J3010; J3475

== ENCOUNTER 2019-07-18 08:45 | Day surgery (SDC) | payer OTHER ==
[~2019-07-18] VITALS: Ht 157.5 cm; Wt 66.0 kg
[~2019-07-18 08:45] MED LIST changes: +ALEN70 PO; +ASCORBIC ACID500 MG PO; +ATOR40TA; +CARV25 PO; +CLON.1 PO; +Calan Sr120 MG PO; +Cymbalta60 MG PO; +DOC250 PO; +GABA100 PO; +LORA1 PO; +Neurontin 100100 MG PO; +Senna Plus Tab1 EACH PO; +TRAZ100 PO; +Verapamil ER100 MG PO
--- NOTE | 2019-07-18 12:25 | NUR ---
ASPIRIN 325 MG AND PLAVIX 300 MG PO GIVEN PER ORDER.
[2019-07-18] MEDS ORDERED: CLOP75 PO (14:17)
[2019-07-18] MEDS ORDERED: Aspir 8181 MG PO (14:18)
--- NOTE | 2019-07-18 16:01 | NUR ---
2 CC AIR REMOVED FROM TR BAND. ADDITIONAL 2 CC AIR REMOVED.
--- NOTE | 2019-07-18 16:11 | NUR ---
REMAINDER OF AIR REMOVED FROM TR BAND. NO BLEEDING AT SITE.
--- NOTE | 2019-07-18 16:30 | NUR ---
REPORT GIVEN TO WARREN GARCIA RN.
== END 2019-07-18 17:00 | disposition home or self-care (01) ==
LOC: MHTC 08:45
DX: T82.855A Stenosis of coronary artery stent, initial encounter (principal); I25.10 Atherosclerotic heart disease of native coronary artery without angina pectoris; I10 Essential (primary) hypertension; E78.5 Hyperlipidemia, unspecified; E11.9 Type 2 diabetes mellitus without complications; F17.210 Nicotine dependence, cigarettes, uncomplicated; Z95.5 Presence of coronary angioplasty implant and graft; Z88.8 Allergy status to other drugs, medicaments and biological substances; Z79.84 Long term (current) use of oral hypoglycemic drugs; Z79.899 Other long term (current) drug therapy
CPT/HCPCS: 82947; 85347; 92978; 93458; 93571; 93572; 99152; 99153; C1725; C1753; C1769; C1874; C1887; C1894; C9600; J1644; J2060; J2250; J3010; J7030; Q9967

== ENCOUNTER → 2019-10-24 | Outpatient (CLI) | payer OTHER ==
[~2019-10-24] MED LIST changes: +Aspir 8181 MG PO; +CLOP75 PO
[2019-10-24 20:08] LABS: Microalb/Creat Ratio UR, Rand Unable to Calculate mg/g (0.000-30.000); Microalbumin, Random Urine <5.000 mg/L (0.000-20.000)
== END | disposition home or self-care (01) ==
LOC: LAB SHORT 13:48 → LAB 13:48
PROVIDERS: Nurse Practitioner Family
DX: E11.65 Type 2 diabetes mellitus with hyperglycemia (principal)
CPT/HCPCS: 82043; 82570

== ENCOUNTER → 2019-11-15 | Outpatient (CLI) | payer OTHER ==
[2019-11-15 17:30] LABS: Adenovirus F 40/41 Not Detected (NOT DETECT); Astrovirus Not Detected (NOT DETECT); Campylobacter Sp Not Detected (NOT DETECT); Cryptosporidium Not Detected (NOT DETECT); Cyclospora Cayetanensis Not Detected (NOT DETECT); E. Coli O157 Not Detected (NOT DETECT); Entamoeba Histolytica Not Detected (NOT DETECT); Enteroaggregative E. coli-EAEC Not Detected (NOT DETECT); Enteropathogenic E. coli-EPEC Not Detected (NOT DETECT); Enterotoxigenic E. coli-ETEC Not Detected (NOT DETECT); Giardia Lamblia Not Detected (NOT DETECT); Norovirus GI/GII Not Detected (NOT DETECT); Plesiomonas Shigelloides Not Detected (NOT DETECT); Rotavirus A Not Detected (NOT DETECT); Salmonella Sp Not Detected (NOT DETECT); Sapovirus Not Detected (NOT DETECT); Shiga Toxin-prod E. coli-STEC Not Detected (NOT DETECT); Shigella/Enteroin E. coli-EIEC Not Detected (NOT DETECT); Vibrio Cholerae Not Detected (NOT DETECT); Vibrio Sp Not Detected (NOT DETECT); Yersinia Enterocolitica Not Detected (NOT DETECT)
== END | disposition home or self-care (01) ==
LOC: LAB SHORT 10:00 → LAB 10:00
PROVIDERS: Nurse Practitioner Family
DX: R19.7 Diarrhea, unspecified (principal)
CPT/HCPCS: 0097U

== ENCOUNTER 2020-03-26 05:42 | Day surgery (SDC) | payer OTHER ==
[~2020-03-26] VITALS: Ht 157.5 cm; Wt 68.0 kg
[~2020-03-26 05:42] MED LIST changes: +ALBU90OI INH; +ALOGLIPTIN25 MG PO; -ATOR40TA; +Klor-Con 1010 MEQ PO; +PANT20 PO; +SYMBICORT 160-4.6 GM INH; +TORS10 PO
--- NOTE | 2020-03-26 08:45 | NUR ---
PT GIVEN 25MCG FOR 8/10 PAIN IN R WRIST AT ACCESS SITE. VSS. WILL CONTINUE TO MONITOR.
--- NOTE | 2020-03-26 09:32 | NUR ---
EKG COMPLETED ORDERED AND SHOWN TO . PT LAYING IN RECLINER WITH SNORING RESPIRATIONS. VSS. WILL CONTINUE TO MONITOR
--- NOTE | 2020-03-26 10:47 | NUR ---
ALL AIR RELEASED FROM TR BAND. NO BLEEDING, OOZING OR HEMATOMA NOTED. PT STATES HER "WHOLE RIGHT ARM HURTS." VSS. WILL CONTINUE TO MONITOR.
--- NOTE | 2020-03-26 11:20 | NUR ---
UPON REMOVAL OF TR BAND. PT DEVELOPED A LARGE MARBLE SIZED HEMATOMA. TR BAND PLACED BACK ON WRIST WITH 10mL AIR. VSS. WILL CONTINUE TO MONITOR.
--- NOTE | 2020-03-26 12:08 | NUR ---
TR BAND 3CC'S AIR REMOVED
--- NOTE | 2020-03-26 12:30 | NUR ---
TR BAND ALL AIR REMOVED FROM TR BAND-CDI NO HEAMTOMA NOTED.
--- NOTE | 2020-03-26 14:25 | NUR ---
DISCHARGE PT REMAINED A&OX3 AND STATED A PAIN IN R WRIST. MEDICATIONS WERE GIVEN PER MAR AND REPOSITIONING FOR COMFORT.-BEFORE LEAVING PT STATED A LITTLE PAIN THAT WAS BEARABLE IN RIGHT WRIST SITE. TR BAND REMOVED-REPLACED WITH CLOTH DOT AND WHITE BOARD. IV DC'D WITH CANULA IN TACT. PT ABLE TO DRESS SELF AND ABULATE TO RESTROOM WITH STEADY GAIT. DISCHARGE PAPERWORK GONE OVER WITH PT BY PARTIK Barragan RN. PT VERBALLY STATED THE UNDERSTANDING OF THE DISCHARGE EDUCATION AND DENIED ANY QUESTIONS AT THIS TIME. PT WHEELED OUT BY ESCORT.
== END 2020-03-26 13:45 | disposition home or self-care (01) ==
LOC: MHTC 05:42
PROC: B201YZZ Plain Radiography of Multiple Coronary Arteries using Other Contrast (ICD-10-PCS; principal; 2020-03-26)
PROC: 4A023N7 Measurement of Cardiac Sampling and Pressure, Left Heart, Percutaneous Approach (ICD-10-PCS; principal; 2020-03-26)
DX: I25.10 Atherosclerotic heart disease of native coronary artery without angina pectoris (principal); I11.9 Hypertensive heart disease without heart failure; I43 Cardiomyopathy in diseases classified elsewhere; E11.40 Type 2 diabetes mellitus with diabetic neuropathy, unspecified; F17.210 Nicotine dependence, cigarettes, uncomplicated; Z88.8 Allergy status to other drugs, medicaments and biological substances; Z79.02 Long term (current) use of antithrombotics/antiplatelets; Z79.84 Long term (current) use of oral hypoglycemic drugs; Z95.5 Presence of coronary angioplasty implant and graft; Z79.82 Long term (current) use of aspirin; Z79.899 Other long term (current) drug therapy
CPT/HCPCS: 76937; 85347; 92920; 92978; 93005; 93010; 93454; 99152; 99153; C1725; C1753; C1769; C1874; C1887; C1894; C9600; J1644; J2250; J3010; J7030; Q9967

== ENCOUNTER 2020-04-07 14:51 | Emergency (ER) | payer OTHER ==
[~2020-04-07] VITALS: Ht 157.5 cm; Wt 68.0 kg
[2020-04-07 15:50] LABS: BASOPHILS ABSOLUTE AUTO 0.07 K/mm3 (0.00-0.23); BASOPHILS PERCENT AUTO 0 % (0-2); EOSINOPHILS ABSOLUTE AUTO 0.06 K/mm3 (0.00-0.68); EOSINOPHILS PERCENT AUTO 0 % (0-6); Hematocrit 40.4 % (33.0-51.0); Hemoglobin 14.3 g/dL (11.5-16.0); IMMATURE GRAN ABSOLUTE AUTO 0.13 K/mm3 (0.00-0.10); IMMATURE GRAN PERCENT AUTO 1 % (0-1); LYMPHOCYTES ABSOLUTE AUTO 2.32 K/mm3 (0.84-5.20); LYMPHOCYTES PERCENT AUTO 14 % (21-46); MONOCYTES ABSOLUTE AUTO 0.92 K/mm3 (0.16-1.47); MONOCYTES PERCENT AUTO 6 % (4-13); Mean Corpuscular HGB 33.1 pg (26.0-34.0); Mean Corpuscular HGB Conc 35.4 g/dL (31.5-36.5); Mean Corpuscular Volume 94 fL (80-100); Mean Platelet Volume 9.8 fL (9.1-12.4); NEUTROPHILS ABSOLUTE AUTO 12.91 K/mm3 (1.96-9.15); NEUTROPHILS PERCENT AUTO 79 % (41-73); Platelet Count 340 K/mm3 (150-400); RDW Coefficient Variation 11.5 % (11.7-14.2); RDW Standard Deviation 39.2 fL (35.1-46.3); Red Blood Cell Count 4.32 M/mm3 (3.80-5.20); White Blood Cell Count 16.41 K/mm3 (4.00-11.30)
[2020-04-07 16:16] LABS: Alanine Aminotransfer (ALT/SGP 12 U/L (12-78); Albumin, Blood 3.3 g/dL (3.4-5.0); Albumin/Globulin Ratio 0.8 (0.8-1.8); Alk Phos 97 U/L (50-136); Anion Gap 7 mmol/L (6-16); Aspartate Aminotrans (AST/SGOT 11 U/L (12-37); Bilirubin, Total 0.7 mg/dL (0.1-1.0); Blood Urea Nitrogen 7 mg/dL (8-24); Bun/Creatinine Ratio 12.5 (12.0-20.0); CO2, Blood 29 mmol/L (21-32); Calcium, Blood 8.7 mg/dL (8.5-10.1); Chloride, Blood 94 mmol/L (98-108); Creatinine, Blood 0.56 mg/dL (0.40-1.00); Globulin, Blood 4.1 g/dL (2.2-4.0); Glomerular Filtration Rate >60 (60-); Glucose, Blood 366 mg/dL (70-99); Potassium, Blood 3.1 mmol/L (3.5-5.5); Sodium, Blood 130 mmol/L (136-145); Total Protein, Blood 7.4 g/dL (6.4-8.2)
[2020-04-07 16:23] LABS: Source, Urine Clean Catch
[2020-04-07 16:25] LABS: Bilirubin, Urine Neg (Neg); Blood, Urine Neg (Neg); Glucose Qualitative, Urine 4+ (Neg); Ketones, Urine Neg (Neg); Leukocyte Esterase, Urine 1+ (Neg); Nitrite, Urine Neg (Neg); Protein, Urine Neg (Neg); Urobilinogen, Urine NORM (Normal)
[2020-04-07 16:35] LABS: Appearance, Urine Clear (Clear); Color, Urine Yellow (P-Yellow)
[2020-04-07 16:36] LABS: Bacteria Few /hpf; Red Blood Cells, Urine 0-2 /hpf (0-2); Squamous Epithelial Cells Few /hpf (Few)
[2020-04-07] MEDS ORDERED: ONDA4ODT MM (19:19)
[2020-04-07] MEDS ORDERED: Norco 5-325 Ta1 EACH PO (19:19)
== END 2020-04-07 19:34 | disposition home or self-care (01) ==
LOC: ER 14:51
PROVIDERS: Emergency Medicine
DX: K52.9 Noninfective gastroenteritis and colitis, unspecified (principal); D72.829 Elevated white blood cell count, unspecified; E87.1 Hypo-osmolality and hyponatremia; E87.6 Hypokalemia; E11.65 Type 2 diabetes mellitus with hyperglycemia; Z88.8 Allergy status to other drugs, medicaments and biological substances; Z79.899 Other long term (current) drug therapy; Z79.82 Long term (current) use of aspirin; I11.9 Hypertensive heart disease without heart failure; E78.5 Hyperlipidemia, unspecified; F17.210 Nicotine dependence, cigarettes, uncomplicated
CPT/HCPCS: 36415; 74177; 80053; 81001; 83690; 83735; 85025; 93005; 93010; 96361; 96374-59; 96375; 96376; 99284-25; A9270; J1170; J2405; J7120; Q9967

== ENCOUNTER 2020-05-28 14:28 | Inpatient (IN) | payer OTHER ==
[~2020-05-28] VITALS: Ht 157.5 cm; Wt 61.2 kg
[~2020-05-28 14:28] MED LIST changes: +AMOCLA875 PO; +ATOR20 PO; +FAMO20 PO; +FURO40 PO; +HUMALOG KW100 UNIT/1 SC; +K-TAB ER20 ME1 PO; +MIRALAX17 GM PO; +NYAMYC15 G1 TOP; +PERCOCET 10-321 EAC1 PO; +POTA10T PO; +PROBIOTIC1 EAC7 PO; +REGLAN10 M1 PO; +VERA80 PO
[2020-05-28 15:06] LABS: BASOPHILS ABSOLUTE AUTO 0.06 K/mm3 (0.00-0.23); BASOPHILS PERCENT AUTO 1 % (0-2); EOSINOPHILS ABSOLUTE AUTO 0.17 K/mm3 (0.00-0.68); EOSINOPHILS PERCENT AUTO 1 % (0-6); Hematocrit 35.4 % (33.0-51.0); Hemoglobin 11.9 g/dL (11.5-16.0); IMMATURE GRAN ABSOLUTE AUTO 0.06 K/mm3 (0.00-0.10); IMMATURE GRAN PERCENT AUTO 1 % (0-1); LYMPHOCYTES ABSOLUTE AUTO 3.31 K/mm3 (0.84-5.20); LYMPHOCYTES PERCENT AUTO 27 % (21-46); MONOCYTES ABSOLUTE AUTO 0.82 K/mm3 (0.16-1.47); MONOCYTES PERCENT AUTO 7 % (4-13); Mean Corpuscular HGB 31.2 pg (26.0-34.0); Mean Corpuscular HGB Conc 33.6 g/dL (31.5-36.5); Mean Corpuscular Volume 93 fL (80-100); Mean Platelet Volume 9.2 fL (9.1-12.4); NEUTROPHILS PERCENT AUTO 64 % (41-73); Platelet Count 302 K/mm3 (150-400); RDW Coefficient Variation 13.8 % (11.7-14.2); RDW Standard Deviation 46.8 fL (35.1-46.3); Red Blood Cell Count 3.82 M/mm3 (3.80-5.20); White Blood Cell Count 12.12 K/mm3 (4.00-11.30)
[2020-05-28 15:28] LABS: Alanine Aminotransfer (ALT/SGP 10 U/L (12-78); Albumin, Blood 2.4 g/dL (3.4-5.0); Albumin/Globulin Ratio 0.6 (0.8-1.8); Alk Phos 92 U/L (50-136); Anion Gap 5 mmol/L (6-16); Aspartate Aminotrans (AST/SGOT 10 U/L (12-37); Bilirubin, Total 0.3 mg/dL (0.1-1.0); Blood Urea Nitrogen 5 mg/dL (8-24); Bun/Creatinine Ratio 10.6 (12.0-20.0); CO2, Blood 30 mmol/L (21-32); Calcium, Blood 8.5 mg/dL (8.5-10.1); Chloride, Blood 100 mmol/L (98-108); Creatinine, Blood 0.47 mg/dL (0.40-1.00); Globulin, Blood 4.1 g/dL (2.2-4.0); Glomerular Filtration Rate >60 (60-); Glucose, Blood 239 mg/dL (70-99); Potassium, Blood 3.4 mmol/L (3.5-5.5); Sodium, Blood 135 mmol/L (136-145); Total Protein, Blood 6.5 g/dL (6.4-8.2)
--- NOTE | 2020-05-28 19:24 | NUR ---
PT ARRIVED TO THE ROOM AT APPROXIMATELY 1850.
[2020-05-29 04:29] LABS: BASOPHILS ABSOLUTE AUTO 0.06 K/mm3 (0.00-0.23); BASOPHILS PERCENT AUTO 1 % (0-2); EOSINOPHILS ABSOLUTE AUTO 0.18 K/mm3 (0.00-0.68); EOSINOPHILS PERCENT AUTO 2 % (0-6); Hematocrit 33.9 % (33.0-51.0); Hemoglobin 11.3 g/dL (11.5-16.0); IMMATURE GRAN ABSOLUTE AUTO 0.06 K/mm3 (0.00-0.10); IMMATURE GRAN PERCENT AUTO 1 % (0-1); LYMPHOCYTES ABSOLUTE AUTO 2.78 K/mm3 (0.84-5.20); LYMPHOCYTES PERCENT AUTO 25 % (21-46); MONOCYTES ABSOLUTE AUTO 0.65 K/mm3 (0.16-1.47); MONOCYTES PERCENT AUTO 6 % (4-13); Mean Corpuscular HGB Conc 33.3 g/dL (31.5-36.5); Mean Corpuscular Volume 93 fL (80-100); Mean Platelet Volume 9.3 fL (9.1-12.4); NEUTROPHILS PERCENT AUTO 66 % (41-73); Platelet Count 272 K/mm3 (150-400); RDW Coefficient Variation 13.9 % (11.7-14.2); RDW Standard Deviation 47.1 fL (35.1-46.3); Red Blood Cell Count 3.65 M/mm3 (3.80-5.20); White Blood Cell Count 11.03 K/mm3 (4.00-11.30)
[2020-05-29 04:52] LABS: Anion Gap 4 mmol/L (6-16); Blood Urea Nitrogen 6 mg/dL (8-24); Bun/Creatinine Ratio 10.3 (12.0-20.0); CO2, Blood 30 mmol/L (21-32); Calcium, Blood 8.3 mg/dL (8.5-10.1); Chloride, Blood 103 mmol/L (98-108); Creatinine, Blood 0.58 mg/dL (0.40-1.00); Glomerular Filtration Rate >60 (60-); Glucose, Blood 155 mg/dL (70-99); Potassium, Blood 3.7 mmol/L (3.5-5.5); Sodium, Blood 137 mmol/L (136-145)
--- NOTE | 2020-05-29 06:50 | NUR ---
PT RECEIVING TORADOL AND SUBLIMAZE FOR PAIN. UP IN ROOM AND HALLS.TOOK SHOWER TONIGHT. VOIDING AND TOLERATING PO UINTIL NPO AT MIDNOC.PT WITH INTERMITTENT NAUSEA.RFECEIVED EUGENIA THIS AM.
--- NOTE | 2020-05-29 08:11 | NUR ---
pt's ostomy leaking red mucus pt stated she has had this color for two days pt stated she was sched for surg on the 27 of [address] li
--- NOTE | 2020-05-29 11:02 | NUR ---
pt tearful covid test neg dr hunt by to see pt ok to give a ot dose of fent
--- NOTE | 2020-05-29 11:05 | NUR ---
pt transported to day surg via [facility]
--- NOTE | 2020-05-29 11:42 | NUR ---
Patient up to Ambulate independently. Gait steady. Lungs clear T/O to Auscultation. Patient confirms NPO status and agrees with scheduled surgery. DENTURES PLACED IN CUP, PT IN ISOLATION FOR HX MRSA, HLIDA RIOJAS RN AWARE, UDN TX GIVEN, EKG DONE, DR BROWN AWARE OF DEFRIBILLATOR AND LAST DOSES OF ANTI COAG'S, ZOSYN DUE AT 1200 SENT TO OR, PAS, NEW 20G THAT RUNS WELL DONE, ALL OTHER PREOP COMPLETE, ALL OTHER BELONINGS LEFT IN ROOM, BRIGITTE AUNT AT BEDSIDE.
--- NOTE | 2020-05-29 12:34 | NUR ---
05/29/20 1234 Mary Ruiz ALL COUNTS CORRECT. WOUND VAC PLACED OVER WOUND AND OSTOMY APPLIANC CHANGED.
--- NOTE | 2020-05-29 13:00 | NUR ---
pt arrived back to room 224 from pacu s/p i&d with wound va placement pt stated no pain no nausea no drainage in the wound vac at this time
--- NOTE | 2020-05-29 14:16 | NUR ---
iv sl pt wanting to go out and smoke
--- NOTE | 2020-05-29 15:27 | NUR ---
pt req pain meds 50 mcg fent given
--- NOTE | 2020-05-29 17:58 | NUR ---
ADDITIONAL FENT 25 MCG GIVEN FOR INC PAIN PT ALSO HAD NAUSEA ZOFRAN GIVEN AT DINNER TIME LAST MEAL EARLIER AFTER SURG PT HAS NO FLATUS IN OSTOMY BAG
--- NOTE | 2020-05-30 04:16 | NUR ---
SHIFT SUMMARY POD 1 S/P I/D WITH WOUND VAC. IS A/OX4. OSTOMY DRESSING C/D/I, PRODUCING CARLISLE SOFT, UNFORMED STOOL. WOUND VAC TO ABD IN PLACE, DRAINING RED FLUID AND DRESSING COMPRESSED. IS VOIDING IND W/BSC. OUT TO SMOKE IND SEVERAL TIMES SINCE START OF SHIFT. PAIN MANAGED WITH IV 0.5 MCG FENTANYL GIVEN PER ORDERS, REPORTS RELIEF. IS CURRENTLY OUT OF ROOM AT THIS TIME, WILL CONT TO MONITOR AND GIVE REPORT TO KVNG SMITH.
[2020-05-30 08:28] LABS: BASOPHILS ABSOLUTE AUTO 0.01 K/mm3 (0.00-0.23); BASOPHILS PERCENT AUTO 0 % (0-2); EOSINOPHILS ABSOLUTE AUTO 0.01 K/mm3 (0.00-0.68); EOSINOPHILS PERCENT AUTO 0 % (0-6); Hematocrit 33.4 % (33.0-51.0); Hemoglobin 10.9 g/dL (11.5-16.0); IMMATURE GRAN ABSOLUTE AUTO 0.05 K/mm3 (0.00-0.10); IMMATURE GRAN PERCENT AUTO 1 % (0-1); LYMPHOCYTES ABSOLUTE AUTO 2.01 K/mm3 (0.84-5.20); LYMPHOCYTES PERCENT AUTO 23 % (21-46); MONOCYTES ABSOLUTE AUTO 0.45 K/mm3 (0.16-1.47); MONOCYTES PERCENT AUTO 5 % (4-13); Mean Corpuscular HGB Conc 32.6 g/dL (31.5-36.5); Mean Corpuscular Volume 95 fL (80-100); Mean Platelet Volume 9.1 fL (9.1-12.4); NEUTROPHILS ABSOLUTE AUTO 6.13 K/mm3 (1.96-9.15); NEUTROPHILS PERCENT AUTO 71 % (41-73); Platelet Count 282 K/mm3 (150-400); RDW Standard Deviation 48.7 fL (35.1-46.3); Red Blood Cell Count 3.52 M/mm3 (3.80-5.20); White Blood Cell Count 8.66 K/mm3 (4.00-11.30)
[2020-05-30 08:55] LABS: Alanine Aminotransfer (ALT/SGP 10 U/L (12-78); Albumin, Blood 2.7 g/dL (3.4-5.0); Albumin/Globulin Ratio 0.7 (0.8-1.8); Alk Phos 80 U/L (50-136); Anion Gap 5 mmol/L (6-16); Aspartate Aminotrans (AST/SGOT 8 U/L (12-37); Bilirubin, Total 0.3 mg/dL (0.1-1.0); Blood Urea Nitrogen 6 mg/dL (8-24); Bun/Creatinine Ratio 9.9 (12.0-20.0); CO2, Blood 32 mmol/L (21-32); Calcium, Blood 8.4 mg/dL (8.5-10.1); Chloride, Blood 100 mmol/L (98-108); Creatinine, Blood 0.61 mg/dL (0.40-1.00); Glomerular Filtration Rate >60 (60-); Glucose, Blood 161 mg/dL (70-99); Potassium, Blood 3.4 mmol/L (3.5-5.5); Sodium, Blood 137 mmol/L (136-145); Total Protein, Blood 6.7 g/dL (6.4-8.2)
--- NOTE | 2020-05-30 18:23 | NUR ---
SHIFT SUMMARY; A/A/OX4 DURING SHIFT. INDEPENDANT IN ROOM WITH SEVERAL TRIPS OUTSIDE TO SMOKE. MEDICATED PER ORDERS Q4 WITH IV FENTANYL. WOUND VAC IN PLACE, DRESSING CLEAN DRY AND INTACT. OSTOMY BAG DRAINING SOFT BROWN STOOL EMPTIED BY PT. MEAL TRAYS PROVIDED WITH MINIMAL EATEN. NO ACUTE CHANGES DURING SHIFT. WILL CONTINUE TO MONITOR AND TREAT UNTIL CHANGE OF SHIFT.
--- NOTE | 2020-05-31 04:46 | NUR ---
SHIFT SUMMARY: SISSY IS A&OX4. VSS, NO ACUTE EVENTS OVERNIGHT. SHE REPORTS MINIMAL PAIN RELIEF WITH 50 MCG FENTANYL AND TORADOL. SHE IS INDEPENDENT IN THE ROOM AND HALLWAYS, WALKING OUTSIDE TO SMOKE. OSTOMY APPLIANCE AND WOUND VAC CHANGED AT BEGINNING OF SHIFT D/T STOOL LEAKING INTO SURGICAL SITE. SHE USES THE CALL LIGHT APPROPRIATELY. SHE IS LYING IN BED WITH HER CALL LIGHT IN REACH. WILL REPORT TO DAY SHIFT RN.
[2020-05-31 09:35] LABS: BASOPHILS ABSOLUTE AUTO 0.05 K/mm3 (0.00-0.23); BASOPHILS PERCENT AUTO 1 % (0-2); EOSINOPHILS ABSOLUTE AUTO 0.16 K/mm3 (0.00-0.68); EOSINOPHILS PERCENT AUTO 2 % (0-6); Hematocrit 33.6 % (33.0-51.0); Hemoglobin 10.8 g/dL (11.5-16.0); IMMATURE GRAN ABSOLUTE AUTO 0.06 K/mm3 (0.00-0.10); IMMATURE GRAN PERCENT AUTO 1 % (0-1); LYMPHOCYTES ABSOLUTE AUTO 2.82 K/mm3 (0.84-5.20); LYMPHOCYTES PERCENT AUTO 30 % (21-46); MONOCYTES ABSOLUTE AUTO 0.56 K/mm3 (0.16-1.47); MONOCYTES PERCENT AUTO 6 % (4-13); Mean Corpuscular HGB 30.9 pg (26.0-34.0); Mean Corpuscular HGB Conc 32.1 g/dL (31.5-36.5); Mean Corpuscular Volume 96 fL (80-100); Mean Platelet Volume 9.1 fL (9.1-12.4); NEUTROPHILS ABSOLUTE AUTO 5.84 K/mm3 (1.96-9.15); NEUTROPHILS PERCENT AUTO 62 % (41-73); Platelet Count 294 K/mm3 (150-400); RDW Coefficient Variation 14.1 % (11.7-14.2); RDW Standard Deviation 49.7 fL (35.1-46.3); White Blood Cell Count 9.49 K/mm3 (4.00-11.30)
[2020-05-31 09:46] LABS: Alanine Aminotransfer (ALT/SGP 14 U/L (12-78); Albumin, Blood 2.6 g/dL (3.4-5.0); Albumin/Globulin Ratio 0.7 (0.8-1.8); Alk Phos 80 U/L (50-136); Anion Gap 6 mmol/L (6-16); Aspartate Aminotrans (AST/SGOT 13 U/L (12-37); Bilirubin, Total 0.3 mg/dL (0.1-1.0); Blood Urea Nitrogen 6 mg/dL (8-24); Bun/Creatinine Ratio 9.6 (12.0-20.0); CO2, Blood 31 mmol/L (21-32); Calcium, Blood 8.4 mg/dL (8.5-10.1); Chloride, Blood 98 mmol/L (98-108); Creatinine, Blood 0.62 mg/dL (0.40-1.00); Globulin, Blood 3.9 g/dL (2.2-4.0); Glomerular Filtration Rate >60 (60-); Glucose, Blood 171 mg/dL (70-99); Potassium, Blood 3.8 mmol/L (3.5-5.5); Sodium, Blood 135 mmol/L (136-145); Total Protein, Blood 6.5 g/dL (6.4-8.2)
--- NOTE | 2020-05-31 19:00 | NUR ---
SUMMARY NO ACUTE CHANGES NOTED THROUGH THE DAY. PT CONTINUES TO HAVE OUTPUT FROM HER OSTOMY, STOMA IS BEEFY RED, VOIDING WNL, TOLERATING PO INTAKE. ANXIETY MEDICATION & ADDITIONAL PAIN MEDICATIONS WERE ORDERED DUE TO FREQUENT WOUND VAC/OSTOMY CHANGES. APPLIANCE KEPT LEAKING. PT WAS ENC TO STAY IN BED TO ALLOW ADHESIVE TO DRY BUT SHE INSISTED ON GOING OUTSIDE TO SMOKE. NOCOTINE PATCH WAS OFFERED BUT PT REFUSED. BED LINENS HAVE BEEN CHANGED MULTIPLE TIMES, PT WAS ABLE TO SHOWER. SHE IS INDEPENDENT IN THE ROOM AND CALLS PRN FOR HELP. CALL LIGHT IN REACH.
[2020-06-01 04:41] LABS: BASOPHILS ABSOLUTE AUTO 0.04 K/mm3 (0.00-0.23); BASOPHILS PERCENT AUTO 0 % (0-2); EOSINOPHILS PERCENT AUTO 2 % (0-6); Hematocrit 32.2 % (33.0-51.0); Hemoglobin 10.4 g/dL (11.5-16.0); IMMATURE GRAN ABSOLUTE AUTO 0.05 K/mm3 (0.00-0.10); IMMATURE GRAN PERCENT AUTO 1 % (0-1); LYMPHOCYTES ABSOLUTE AUTO 2.78 K/mm3 (0.84-5.20); LYMPHOCYTES PERCENT AUTO 30 % (21-46); MONOCYTES PERCENT AUTO 8 % (4-13); Mean Corpuscular HGB Conc 32.3 g/dL (31.5-36.5); Mean Corpuscular Volume 96 fL (80-100); Mean Platelet Volume 9.2 fL (9.1-12.4); NEUTROPHILS ABSOLUTE AUTO 5.43 K/mm3 (1.96-9.15); NEUTROPHILS PERCENT AUTO 59 % (41-73); Platelet Count 298 K/mm3 (150-400); RDW Coefficient Variation 13.9 % (11.7-14.2); RDW Standard Deviation 49.4 fL (35.1-46.3); Red Blood Cell Count 3.35 M/mm3 (3.80-5.20)
--- NOTE | 2020-06-01 05:02 | NUR ---
SHIFT SUMMARY: VSS, NO ACUTE EVENTS OVERNIGHT. WOUND VAC PATENT. INDEPENDENT IN THE ROOM AND HALLWAYS. SHE USES HER CALL LIGHT APPROPRIATELY. WILL REPORT TO DAY SHIFT RN.
[2020-06-01 05:14] LABS: Alanine Aminotransfer (ALT/SGP 12 U/L (12-78); Albumin, Blood 2.5 g/dL (3.4-5.0); Albumin/Globulin Ratio 0.7 (0.8-1.8); Alk Phos 78 U/L (50-136); Anion Gap 2 mmol/L (6-16); Aspartate Aminotrans (AST/SGOT 10 U/L (12-37); Bilirubin, Total 0.2 mg/dL (0.1-1.0); Blood Urea Nitrogen 7 mg/dL (8-24); Bun/Creatinine Ratio 10.5 (12.0-20.0); CO2, Blood 34 mmol/L (21-32); Calcium, Blood 8.7 mg/dL (8.5-10.1); Chloride, Blood 102 mmol/L (98-108); Creatinine, Blood 0.67 mg/dL (0.40-1.00); Globulin, Blood 3.7 g/dL (2.2-4.0); Glomerular Filtration Rate >60 (60-); Glucose, Blood 169 mg/dL (70-99); Potassium, Blood 3.8 mmol/L (3.5-5.5); Sodium, Blood 138 mmol/L (136-145); Total Protein, Blood 6.2 g/dL (6.4-8.2)
--- NOTE | 2020-06-01 18:24 | NUR ---
SHIFT SUMMARY POD#3 FROM AND I&D OF ABDOMINAL WALL ABSCESS. PT HAS BEEN PAINFUL T/O THE DAY. SHE TAKES NORCO AND FENTANYL TO MANAGE PAIN. PT REQUIRED ADDITONAL DILAUDID FOR PAIN MANAGMENT DURING DRESSING CHANGE. PT'S OSTOMY AND ABD INCISION ARE APPROXIMATELY 1/2 IN APART, IT HAS BEEN DIFFICULTY TO KEEP OSTOMY APPLIANCE FROM LEAKING R/T CLOSE PROXIMITY TO THE WOUND. DESPITE PAIN, PT HAS BEEN ABLE TO AMBULATE OUTSIDE INDEPENDENTLY. PT REQUESTED A NICOTINE PATCH WHEN PAIN INCREASED DURING DRESSING CHANGE. AFTER DRESSING CHANGE WAS COMPLETE SHE DECLINED THE NICOTINE PATCH SINCE PAIN WAS MORE MANAGED AND SHE COULD GO OUTSIDE. BLOOD SUGAR IS MANAGED WITH INSULIN; SHE HAS ONLY REQUIRED COVERAGE FOR DINNER. VSS. WILL MONITOR UNTIL REPORT TO ONCOMING RN.
--- NOTE | 2020-06-01 19:20 | NUR ---
AMBULATED OUT OF ROOM AFTER VS TAKEN.
--- NOTE | 2020-06-01 19:45 | NUR ---
RETURNED TO ROOM PUSHING A WHEELCHAIR.
[2020-06-02 05:35] LABS: BASOPHILS ABSOLUTE AUTO 0.05 K/mm3 (0.00-0.23); BASOPHILS PERCENT AUTO 1 % (0-2); EOSINOPHILS ABSOLUTE AUTO 0.19 K/mm3 (0.00-0.68); EOSINOPHILS PERCENT AUTO 2 % (0-6); Hematocrit 33.9 % (33.0-51.0); Hemoglobin 10.8 g/dL (11.5-16.0); IMMATURE GRAN ABSOLUTE AUTO 0.07 K/mm3 (0.00-0.10); IMMATURE GRAN PERCENT AUTO 1 % (0-1); LYMPHOCYTES ABSOLUTE AUTO 2.54 K/mm3 (0.84-5.20); LYMPHOCYTES PERCENT AUTO 28 % (21-46); MONOCYTES ABSOLUTE AUTO 0.69 K/mm3 (0.16-1.47); MONOCYTES PERCENT AUTO 8 % (4-13); Mean Corpuscular HGB 30.8 pg (26.0-34.0); Mean Corpuscular HGB Conc 31.9 g/dL (31.5-36.5); Mean Corpuscular Volume 97 fL (80-100); NEUTROPHILS ABSOLUTE AUTO 5.64 K/mm3 (1.96-9.15); NEUTROPHILS PERCENT AUTO 61 % (41-73); Platelet Count 285 K/mm3 (150-400); RDW Coefficient Variation 14.2 % (11.7-14.2); RDW Standard Deviation 50.3 fL (35.1-46.3); Red Blood Cell Count 3.51 M/mm3 (3.80-5.20); White Blood Cell Count 9.18 K/mm3 (4.00-11.30)
[2020-06-02 06:02] LABS: Percent Saturation 13.6 % (15.0-50.0)
[2020-06-02 06:03] LABS: Alanine Aminotransfer (ALT/SGP 10 U/L (12-78); Albumin, Blood 2.5 g/dL (3.4-5.0); Albumin/Globulin Ratio 0.6 (0.8-1.8); Alk Phos 74 U/L (50-136); Anion Gap 5 mmol/L (6-16); Aspartate Aminotrans (AST/SGOT 7 U/L (12-37); Bilirubin, Total 0.3 mg/dL (0.1-1.0); Blood Urea Nitrogen 7 mg/dL (8-24); Bun/Creatinine Ratio 9.9 (12.0-20.0); CO2, Blood 30 mmol/L (21-32); Calcium, Blood 8.8 mg/dL (8.5-10.1); Chloride, Blood 102 mmol/L (98-108); Creatinine, Blood 0.71 mg/dL (0.40-1.00); Globulin, Blood 4.1 g/dL (2.2-4.0); Glomerular Filtration Rate >60 (60-); Glucose, Blood 158 mg/dL (70-99); Magnesium, Blood 1.7 mg/dL (1.6-2.4); Potassium, Blood 3.8 mmol/L (3.5-5.5); Sodium, Blood 137 mmol/L (136-145); Total Protein, Blood 6.6 g/dL (6.4-8.2)
--- NOTE | 2020-06-02 06:19 | NUR ---
SHIFT SUMMARY CURRENTLY OUT OF ROOM, AMBULATING WHILE PUSHING WHEELCHAIR. AAO X3, [place], FOLLOWS ALL COMMANDS. RESPIRATIONS EVEN AND UNLABORED ON RA. LUNG SOUNDS CLEAR AND DIMINSHED IN BASES BILATERALLY. ABDOMEN SOFT AND NONDISTENDED. BOWEL SOUNDS NOTED IN ALL QUADS. MIDLINE WOUND DRESSING IS PATENT, FOAM COMPRESSED, VAC SHOWS SEAL MAINTAINED AT 125MM/HG. OSTOMY DRAINING BROWN LIQUID. REPOSITIONS SELF FOR COMFORT. MEDICATED FOR PAIN X3 THIS SHIFT. DENIES PAIN, DISCOMFORT, OR FURTHER NEEDS AT THIS TIME. SAFETY MEASURES IN PLACE. WILL CONTINUE TO MONITOR AND GIVE HAND OFF TO ONCOMING SHIFT USING SBAR DURING BEDSIDE REPORT.
--- NOTE | 2020-06-02 07:15 | NUR ---
recvd report from previous shift rn jovany, pt sitting up in bed on her phone, a/0 x 4, answers questions, denies n/v. call light within reach, bed rails up x 2, bed in lowest position.
--- NOTE | 2020-06-02 11:49 | NUR ---
pt walking outside with family member
--- NOTE | 2020-06-02 12:10 | NUR ---
DR PAGETRATE ROUNDING ON PT
--- NOTE | 2020-06-02 12:50 | NUR ---
PT OUTSIDE ROOM, HAS GONE OUTSIDE TWICE WITHIN THE LAST HOUR
--- NOTE | 2020-06-02 13:12 | NUR ---
AWAITING PT ARRIVAL TO ROOM TO ADMINISTER ORDERED MEDICATIONS, INCLUDING IV ANTIBIOTICS AND INSULIN.
--- NOTE | 2020-06-02 19:53 | NUR ---
shift summary: vss, no acute changes. pt reports no n/v with PO intake, urine output of unmeasured voids x 4. failure of ostomy appliance this shift with change approx 1330, requires wound vac change at the same time. pt tolerated this pt continues to go outside multiple times despite being educated on the need for IV therapy. pt received visitation from aunt this shift.
[2020-06-03 04:54] LABS: BASOPHILS ABSOLUTE AUTO 0.07 K/mm3 (0.00-0.23); BASOPHILS PERCENT AUTO 1 % (0-2); EOSINOPHILS ABSOLUTE AUTO 0.23 K/mm3 (0.00-0.68); EOSINOPHILS PERCENT AUTO 3 % (0-6); Hematocrit 37.1 % (33.0-51.0); Hemoglobin 11.7 g/dL (11.5-16.0); IMMATURE GRAN ABSOLUTE AUTO 0.06 K/mm3 (0.00-0.10); IMMATURE GRAN PERCENT AUTO 1 % (0-1); LYMPHOCYTES PERCENT AUTO 34 % (21-46); MONOCYTES ABSOLUTE AUTO 0.65 K/mm3 (0.16-1.47); MONOCYTES PERCENT AUTO 7 % (4-13); Mean Corpuscular HGB 30.5 pg (26.0-34.0); Mean Corpuscular HGB Conc 31.5 g/dL (31.5-36.5); Mean Corpuscular Volume 97 fL (80-100); Mean Platelet Volume 9.1 fL (9.1-12.4); NEUTROPHILS ABSOLUTE AUTO 5.17 K/mm3 (1.96-9.15); NEUTROPHILS PERCENT AUTO 55 % (41-73); Platelet Count 372 K/mm3 (150-400); RDW Coefficient Variation 14.1 % (11.7-14.2); RDW Standard Deviation 50.1 fL (35.1-46.3); Red Blood Cell Count 3.84 M/mm3 (3.80-5.20); White Blood Cell Count 9.38 K/mm3 (4.00-11.30)
--- NOTE | 2020-06-03 05:08 | NUR ---
SHIFT SUMMARY LYING IN LOW FOWLERS WITH EYES CLOSED, HAS RESTED THIS SHIFT. AAO X3, ARR[place], FOLLOWS ALL COMMANDS. RESPIRATIONS EVEN AND UNLABORED ON RA. LUNG SOUNDS COARSE AND DIMINSHED IN BASES WITH WHEEZE AND RUB NOTED BILATERALLY. ABDOMEN SOFT AND NONDISTENDED. BOWEL SOUNDS NOTED IN ALL QUADS. MIDLINE WOUND DRESSING IS PATENT, FOAM COMPRESSED, VAC SHOWS SEAL MAINTAINED AT 125MM/HG. OSTOMY DRAINING BROWN LIQUID. REPOSITIONS SELF FOR COMFORT. MEDICATED FOR PAIN X3 THIS SHIFT. DENIES PAIN, DISCOMFORT, OR FURTHER NEEDS AT THIS TIME. SAFETY MEASURES IN PLACE. WILL CONTINUE TO MONITOR AND GIVE HAND OFF TO ONCOMING SHIFT USING SBAR DURING BEDSIDE REPORT.
[2020-06-03 05:16] LABS: Anion Gap 4 mmol/L (6-16); Blood Urea Nitrogen 8 mg/dL (8-24); Bun/Creatinine Ratio 9.6 (12.0-20.0); CO2, Blood 32 mmol/L (21-32); Chloride, Blood 99 mmol/L (98-108); Creatinine, Blood 0.83 mg/dL (0.40-1.00); Glomerular Filtration Rate >60 (60-); Glucose, Blood 157 mg/dL (70-99); Potassium, Blood 3.8 mmol/L (3.5-5.5); Sodium, Blood 135 mmol/L (136-145)
--- NOTE | 2020-06-03 15:25 | NUR ---
SUMMARY NO ACUTE CHANGES NOTED THROUGH THE DAY. WOUND VAC REMAINS IN PLACE, SUCTION INTACT. OSTOMY CONTINUES TO PRODUCE STOOL WNL, VSS, TOLERATING PO INTAKE. PT IS AMBULATING IN THE HALLS AND OUTSIDE TO SMOKE FREQUENTLY. CALL LIGHT IN REACH, REPORT GIVEN TO PHYLICIA SMITH
--- NOTE | 2020-06-03 15:25 | NUR ---
assumed care of pt from previous RN mic Gant sleeping, call light within reach, bed in lowest position
--- NOTE | 2020-06-03 17:00 | NUR ---
pt not in room for medication administration per mar.
--- NOTE | 2020-06-03 18:31 | NUR ---
pt remains a/o x 4, cooperative, states she is "depressed", encouraged pt to speak with hospitalist about this, follow up with PCP upon discharge. pt currently using wheelchair to go outside. This RN encouraged pt to return soon for ABX therapy per MAR. pt agrees
--- NOTE | 2020-06-03 19:45 | NUR ---
IV REMOVED FROM RIGHT FOREARM D/T LEAKING. CATHETER INTACT. NO SWELLING OR INDURATION.
--- NOTE | 2020-06-04 04:33 | NUR ---
SHIFT SUMMARY: SISSY IS A&OX4. SHE REPORTS THAT SHE HAS SLEPT MORE TONIGHT THAN SHE HAS LATELY. VSS, NO ACUTE CHANGES. OSTOMY APPLIANCE INTACT. WOUND VAC PATENT. SHE IS TOLERATING PO INTAKE. IV TO L FOREARM PATENT, FLUSHES SLOWLY. SHE CONTINUES TO GO OUTSIDE TO SMOKE. SHE USES HER CALL LIGHT APPROPRIATELY. WILL REPORT TO DAY SHIFT RN.
[2020-06-04 05:24] LABS: BASOPHILS ABSOLUTE AUTO 0.06 K/mm3 (0.00-0.23); BASOPHILS PERCENT AUTO 1 % (0-2); EOSINOPHILS ABSOLUTE AUTO 0.26 K/mm3 (0.00-0.68); EOSINOPHILS PERCENT AUTO 3 % (0-6); IMMATURE GRAN ABSOLUTE AUTO 0.08 K/mm3 (0.00-0.10); IMMATURE GRAN PERCENT AUTO 1 % (0-1); LYMPHOCYTES ABSOLUTE AUTO 3.35 K/mm3 (0.84-5.20); LYMPHOCYTES PERCENT AUTO 34 % (21-46); MONOCYTES ABSOLUTE AUTO 0.82 K/mm3 (0.16-1.47); MONOCYTES PERCENT AUTO 8 % (4-13); Mean Corpuscular HGB Conc 32.4 g/dL (31.5-36.5); Mean Corpuscular Volume 96 fL (80-100); Mean Platelet Volume 8.8 fL (9.1-12.4); NEUTROPHILS ABSOLUTE AUTO 5.35 K/mm3 (1.96-9.15); NEUTROPHILS PERCENT AUTO 54 % (41-73); Platelet Count 358 K/mm3 (150-400); RDW Coefficient Variation 13.9 % (11.7-14.2); Red Blood Cell Count 3.87 M/mm3 (3.80-5.20); White Blood Cell Count 9.92 K/mm3 (4.00-11.30)
[2020-06-04 05:44] LABS: Anion Gap 5 mmol/L (6-16); Blood Urea Nitrogen 7 mg/dL (8-24); Bun/Creatinine Ratio 8.5 (12.0-20.0); CO2, Blood 32 mmol/L (21-32); Calcium, Blood 9.3 mg/dL (8.5-10.1); Chloride, Blood 99 mmol/L (98-108); Creatinine, Blood 0.83 mg/dL (0.40-1.00); Glomerular Filtration Rate >60 (60-); Glucose, Blood 157 mg/dL (70-99); Potassium, Blood 3.9 mmol/L (3.5-5.5); Sodium, Blood 136 mmol/L (136-145); Vancomycin, Trough 19.8 ug/mL (5.0-10.0)
[2020-06-04] MEDS ORDERED: ACET325 PO (12:44)
[2020-06-04] MEDS ORDERED: FERSU300 PO (12:46)
[2020-06-04] MEDS ORDERED: ASCO500 PO (12:46)
[2020-06-04] MEDS ORDERED: Ativan1 MG PO (12:47)
[2020-06-04] MEDS ORDERED: Norco 10-325 T1 EACH PO (12:47)
[2020-06-04] MEDS ORDERED: Nicoderm Cq1 EAC1 TOP (12:48)
[2020-06-04] MEDS ORDERED: MIRT30 PO (12:48)
[2020-06-04] MEDS ORDERED: ONDA4ODT PO (12:49)
[2020-06-04] MEDS ORDERED: AMOCLA875 PO (12:49)
--- NOTE | 2020-06-04 19:05 | NUR ---
SHIFT SUMMARY PT A&OX4, VSS, INDEPENDENT IN ROOM, OUTSIDE TO SMOKE W/WC. VOIDING WELL. IMGDALIA PO ADA DIET. POWERGLIDE KE[place]. PAIN MANAGED PER EMAR. IV ABX INFUSED PER EMAR. PLAN FOR SNF DC. WILL REPORT TO ONCVINCENT MARIE RN.
--- NOTE | 2020-06-05 04:17 | NUR ---
SHIFT SUMMARY: SISSY IS A&O X4. VSS, NO ACUTE EVENTS OVERNIGHT. PLAN TO DISCHARGE TO SNF TODAY. SHE RATES THE PAIN MEDICATION MINIMALLY EFFECTIVE FOR HER PAIN. SHE HAS REQUESTED ATIVAN FOR ANXIETY. SHE IS INDEPENDENT IN THE ROOM AND HALLWAYS. SHE CONTINUES TO GO OUTSIDE TO SMOKE. OSTOMY HOLDING SEAL WITH THE BELT. WOUND VAC PATENT. NO DIFFICULTIES URINATING. SHE IS LYING IN BED WITH HER CALL LIGHT IN REACH. WILL REPORT TO DAY SHIFT RN.
[2020-06-05 06:57] LABS: Vancomycin, Trough 24.5 ug/mL (5.0-10.0)
--- NOTE | 2020-06-05 10:56 | NUR ---
CONVERSATION WITH PT'S UNCLE MENDEZ; EXPRESSED THE FAMILY IS NOT HAPPY PT HAS TO GO TO SNF. I EXPLAINED TO MENDEZ THAT WE WERE WORKING ON PT RETURNING HOME YESTERDAY WITH HOME HEALTH, BUT HH EXPRESSED CONCERN THAT THEY HAVE BEEN WORKING WITH PT TO MANAGE THIS ISSUE AT HOME AND IT WAS UNSUCCESSFUL, AND PT WENT TO ER AND WAS READMITTED FOR CARE. WITH THIS INFORMATION, IT IS BEST FOR PT TO GO TO SNF FOR CONTINUED ANTIBIOTICS AND WOUND CARE/VAC MANAGEMENT. I ASKED MENDEZ TO PLEASE ENCOURAGE PT TO GO TO SNF SO WE MAY GET HER THE CARE REQUIRED TO HEAL THIS WOUND. I ALSO EXPLAINED TO PT THAT HE NEEDS TO ENCOURAGE PT TO QUIT SMOKING SO SHE CAN HEAL, AND WITH 1 MONTH OF BEING SMOKE FREE SHE CAN GET THE OSTOMY REVISION SINCE INSURANCE WILL NOT PAY FOR THE REVISION UNLESS PT IS SMOKE FREE FOR 1 MONTH. MENDEZ AGREED TO THIS PLAN, AND SAID HE WOULD ENCOURAGE PT. PT RETURNED FROM SMOKING OUTSIDE AND SAID THAT SHE WAS IN AGREEMENT TO GO TO SNF AND SAID SHE WANTED A NICOTINE PATCH SHE WAS GOING TO "TRY" TO QUIT SMOKING.
[2020-06-05 12:49] LABS: Vancomycin, Random 18.8 ug/mL
--- NOTE | 2020-06-05 16:35 | NUR ---
DISCHARGE SUMMARY PT A&0X4, VSS, LEFT WITH TRANSPORT TO GO TO [facility], WITH DC PACKET WHICH INCLUDED 2 SCRIPTS. PRIOR TO DC, WOUND VAC DRESSING AND OSTOMY APPLIANCE. POWERGLIDE IN PLACE KEATON FOR IV ABX TX. CONSULT MESSAGE LEFT FOR DR AZUL TO CONTACT THE PT OR [facility] TO MAKE A RECOMMENDATION ON LENGTH OF ABX TX, PER CONSULT OF HOSPITALIST ADDED YESTERDAY, AND DR Jay WILL NOT BE RETURNING TO HOSPITAL UNTIL MONDAY AFTER PT DC'D. REPORT PROVIDED TO JUAN SMITH.
== END 2020-06-05 16:10 | DRG 857 ==
LOC: ER 14:28 → SURS 18:53
PROVIDERS: Family Medicine; Internal Medicine; Pharmacist; Physician Assistant; Surgery; ADMIT Internal Medicine
PROC: 0WPB03Z Removal of Infusion Device from Left Pleural Cavity, Open Approach (ICD-10-PCS; 2020-05-29)
PROC: 0W9F0ZZ Drainage of Abdominal Wall, Open Approach (ICD-10-PCS; principal; 2020-05-29 11:30)
DX: T81.49XA Infection following a procedure, other surgical site, initial encounter (principal); I42.2 Other hypertrophic cardiomyopathy; L02.211 Cutaneous abscess of abdominal wall; Z20.828 Contact with and (suspected) exposure to other viral communicable diseases; E11.9 Type 2 diabetes mellitus without complications; F32.9 Major depressive disorder, single episode, unspecified; I10 Essential (primary) hypertension; J44.9 Chronic obstructive pulmonary disease, unspecified; K21.9 Gastro-esophageal reflux disease without esophagitis; Z85.42 Personal history of malignant neoplasm of other parts of uterus; I25.10 Atherosclerotic heart disease of native coronary artery without angina pectoris; F17.210 Nicotine dependence, cigarettes, uncomplicated; D50.9 Iron deficiency anemia, unspecified; B95.62 Methicillin resistant Staphylococcus aureus infection as the cause of diseases classified elsewhere; Z95.810 Presence of automatic (implantable) cardiac defibrillator
CPT/HCPCS: 36415; 74177; 80048; 80053; 80202; 82728; 82947; 83540; 83550; 83605; 83735; 83880; 85025; 87040; 87070; 87075; 87077; 87147; 87186; 87205; 93005; 93010; 94640; 94760; 96365-59; 96367; 96375; 96376; 99285-25; A9270; A9270-GY; J0696; J1100; J1170; J1650; J1885; J2060; J2250; J2370; J2405; J2543; J2704; J3010; J3370; J7050; J7120; Q9967; U0002

== ENCOUNTER → 2020-07-07 | Outpatient (CLI) | payer OTHER ==
[~2020-07-07] MED LIST changes: +Ativan1 MG PO; +DIPATR PO; +FERSU300 PO; +MIRT30 PO; +Norco 10-325 T1 EACH PO; +ONDA4 PO; +ONDA4ODT PO
== END | disposition home or self-care (01) ==
LOC: LAB 17:17 → LAB SHORT 17:17
DX: S31.40XA Unspecified open wound of vagina and vulva, initial encounter (principal)
CPT/HCPCS: 87070; 87075; 87076; 87077; 87185; 87186; 87205

== ENCOUNTER 2020-07-20 15:41 | Day surgery (SDC) | payer OTHER ==
[~2020-07-20 15:41] MED LIST changes: -DIPATR PO; -ONDA4 PO
[2020-07-23] MEDS ORDERED: ONDA4 PO (22:14)
[2020-07-23] MEDS ORDERED: DIPATR PO (22:14)
[2020-07-28] MEDS ORDERED: TRAM50 PO (14:53)
== END 2020-08-05 22:45 | disposition home or self-care (01) ==
LOC: WOUND 15:41
DX: T81.31XA Disruption of external operation (surgical) wound, not elsewhere classified, initial encounter (principal); E11.52 Type 2 diabetes mellitus with diabetic peripheral angiopathy with gangrene; I96 Gangrene, not elsewhere classified; I10 Essential (primary) hypertension; F17.210 Nicotine dependence, cigarettes, uncomplicated; J44.9 Chronic obstructive pulmonary disease, unspecified; I49.9 Cardiac arrhythmia, unspecified; I25.10 Atherosclerotic heart disease of native coronary artery without angina pectoris; E11.40 Type 2 diabetes mellitus with diabetic neuropathy, unspecified; Z88.8 Allergy status to other drugs, medicaments and biological substances; Z93.3 Colostomy status; Z79.82 Long term (current) use of aspirin; Z79.02 Long term (current) use of antithrombotics/antiplatelets; Z79.51 Long term (current) use of inhaled steroids; Z79.4 Long term (current) use of insulin; Z79.899 Other long term (current) drug therapy; Z51.5 Encounter for palliative care; Y83.8 Other surgical procedures as the cause of abnormal reaction of the patient, or of later complication, without mention of misadventure at the time of the procedure
CPT/HCPCS: G0463

== ENCOUNTER 2020-07-23 18:12 | Emergency (ER) | payer OTHER ==
[~2020-07-23] VITALS: Ht 157.5 cm; Wt 59.0 kg
[2020-07-23 19:10] LABS: BASOPHILS ABSOLUTE AUTO 0.09 K/mm3 (0.00-0.23); BASOPHILS PERCENT AUTO 1 % (0-2); EOSINOPHILS ABSOLUTE AUTO 0.19 K/mm3 (0.00-0.68); EOSINOPHILS PERCENT AUTO 2 % (0-6); Hematocrit 38.8 % (33.0-51.0); Hemoglobin 13.5 g/dL (11.5-16.0); IMMATURE GRAN ABSOLUTE AUTO 0.04 K/mm3 (0.00-0.10); IMMATURE GRAN PERCENT AUTO 0 % (0-1); LYMPHOCYTES PERCENT AUTO 36 % (21-46); MONOCYTES ABSOLUTE AUTO 0.72 K/mm3 (0.16-1.47); MONOCYTES PERCENT AUTO 6 % (4-13); Mean Corpuscular HGB 30.8 pg (26.0-34.0); Mean Corpuscular HGB Conc 34.8 g/dL (31.5-36.5); Mean Corpuscular Volume 89 fL (80-100); Mean Platelet Volume 9.2 fL (9.1-12.4); NEUTROPHILS ABSOLUTE AUTO 6.36 K/mm3 (1.96-9.15); NEUTROPHILS PERCENT AUTO 55 % (41-73); Platelet Count 343 K/mm3 (150-400); RDW Coefficient Variation 13.2 % (11.7-14.2); Red Blood Cell Count 4.38 M/mm3 (3.80-5.20)
[2020-07-23 20:10] LABS: Alanine Aminotransfer (ALT/SGP 28 U/L (12-78); Albumin, Blood 3.8 g/dL (3.4-5.0); Albumin/Globulin Ratio 0.9 (0.8-1.8); Alk Phos 84 U/L (50-136); Anion Gap 9 mmol/L (6-16); Aspartate Aminotrans (AST/SGOT 27 U/L (12-37); Bilirubin, Total 0.2 mg/dL (0.1-1.0); Blood Urea Nitrogen 11 mg/dL (8-24); Bun/Creatinine Ratio 19.4 (12.0-20.0); CO2, Blood 28 mmol/L (21-32); Chloride, Blood 99 mmol/L (98-108); Creatinine, Blood 0.57 mg/dL (0.40-1.00); Globulin, Blood 4.3 g/dL (2.2-4.0); Glomerular Filtration Rate >60 (60-); Glucose, Blood 129 mg/dL (70-99); Potassium, Blood 4.3 mmol/L (3.5-5.5); Sodium, Blood 136 mmol/L (136-145); Total Protein, Blood 8.1 g/dL (6.4-8.2); Troponin I 0.028 ng/mL (0.000-0.040)
[2020-07-23] MEDS ORDERED: ONDA4 PO (22:14)
[2020-07-23] MEDS ORDERED: DIPATR PO (22:14)
== END 2020-07-23 22:45 | disposition home or self-care (01) ==
LOC: ER 18:12
PROVIDERS: Physician Assistant
DX: K52.9 Noninfective gastroenteritis and colitis, unspecified (principal); I10 Essential (primary) hypertension; E11.9 Type 2 diabetes mellitus without complications; I25.10 Atherosclerotic heart disease of native coronary artery without angina pectoris; F41.9 Anxiety disorder, unspecified; K21.9 Gastro-esophageal reflux disease without esophagitis; F17.210 Nicotine dependence, cigarettes, uncomplicated; Z88.8 Allergy status to other drugs, medicaments and biological substances; Z79.82 Long term (current) use of aspirin; Z79.52 Long term (current) use of systemic steroids; Z79.51 Long term (current) use of inhaled steroids; Z79.4 Long term (current) use of insulin; Z79.899 Other long term (current) drug therapy; Z79.02 Long term (current) use of antithrombotics/antiplatelets; Z95.810 Presence of automatic (implantable) cardiac defibrillator; Z95.5 Presence of coronary angioplasty implant and graft; Z93.3 Colostomy status
CPT/HCPCS: 36415; 71046; 74177; 80053; 83605; 84484; 85025; 87040; 93005; 93010; 96374-59; 96375; 99284-25; J1170; J2270; J2405; Q9967

== ENCOUNTER 2020-07-27 00:28 | Day surgery (SDC) | payer OTHER ==
[~2020-07-27 00:28] MED LIST changes: +DIPATR PO; +ONDA4 PO
[2020-07-28] MEDS ORDERED: TRAM50 PO (14:53)
== END 2020-07-27 22:37 | disposition home or self-care (01) ==
LOC: WOUND 00:28
DX: T81.32XS Disruption of internal operation (surgical) wound, not elsewhere classified, sequela (principal)
CPT/HCPCS: G0463

== ENCOUNTER 2020-08-03 00:41 | Day surgery (SDC) | payer OTHER | END 2020-08-03 22:38 | disposition home or self-care (01) | LOC: WOUND 00:41 | DX: T81.31XA Disruption of external operation (surgical) wound, not elsewhere classified, initial encounter (principal); I96 Gangrene, not elsewhere classified; E11.40 Type 2 diabetes mellitus with diabetic neuropathy, unspecified; I25.10 Atherosclerotic heart disease of native coronary artery without angina pectoris; I10 Essential (primary) hypertension; J44.9 Chronic obstructive pulmonary disease, unspecified; I49.9 Cardiac arrhythmia, unspecified; Z93.3 Colostomy status; Z88.8 Allergy status to other drugs, medicaments and biological substances; Z79.02 Long term (current) use of antithrombotics/antiplatelets; Z79.51 Long term (current) use of inhaled steroids; Z79.82 Long term (current) use of aspirin; Z79.4 Long term (current) use of insulin; Z79.899 Other long term (current) drug therapy; Z51.5 Encounter for palliative care; Y83.8 Other surgical procedures as the cause of abnormal reaction of the patient, or of later complication, without mention of misadventure at the time of the procedure | CPT/HCPCS: G0463 ==

== ENCOUNTER 2020-08-17 00:49 | Day surgery (SDC) | payer OTHER | END 2020-08-17 23:44 | disposition home or self-care (01) | LOC: WOUND 00:49 | DX: T81.31XA Disruption of external operation (surgical) wound, not elsewhere classified, initial encounter (principal); F17.200 Nicotine dependence, unspecified, uncomplicated; J44.9 Chronic obstructive pulmonary disease, unspecified; I10 Essential (primary) hypertension; I49.9 Cardiac arrhythmia, unspecified; I25.10 Atherosclerotic heart disease of native coronary artery without angina pectoris; E11.40 Type 2 diabetes mellitus with diabetic neuropathy, unspecified; Z93.3 Colostomy status; Z88.8 Allergy status to other drugs, medicaments and biological substances; Z79.02 Long term (current) use of antithrombotics/antiplatelets; Z79.82 Long term (current) use of aspirin; Z79.4 Long term (current) use of insulin; Z79.899 Other long term (current) drug therapy; Z51.5 Encounter for palliative care; Y83.8 Other surgical procedures as the cause of abnormal reaction of the patient, or of later complication, without mention of misadventure at the time of the procedure | CPT/HCPCS: G0463 ==

== ENCOUNTER 2020-08-31 01:18 | Day surgery (SDC) | payer OTHER | END 2020-08-31 23:06 | disposition home or self-care (01) | LOC: WOUND 01:18 | DX: T81.32XA Disruption of internal operation (surgical) wound, not elsewhere classified, initial encounter (principal); F17.200 Nicotine dependence, unspecified, uncomplicated ==

== ENCOUNTER 2020-09-07 02:18 | Day surgery (SDC) | payer OTHER | END 2020-09-07 23:17 | disposition home or self-care (01) | LOC: WOUND 02:18 | DX: T81.32XS Disruption of internal operation (surgical) wound, not elsewhere classified, sequela (principal); J44.9 Chronic obstructive pulmonary disease, unspecified; I25.10 Atherosclerotic heart disease of native coronary artery without angina pectoris; I10 Essential (primary) hypertension; I49.9 Cardiac arrhythmia, unspecified; E11.40 Type 2 diabetes mellitus with diabetic neuropathy, unspecified; Z93.3 Colostomy status; Z79.02 Long term (current) use of antithrombotics/antiplatelets; Z79.82 Long term (current) use of aspirin; Z79.51 Long term (current) use of inhaled steroids; Z79.4 Long term (current) use of insulin; Z79.899 Other long term (current) drug therapy; Z88.8 Allergy status to other drugs, medicaments and biological substances; Z51.5 Encounter for palliative care; Y83.8 Other surgical procedures as the cause of abnormal reaction of the patient, or of later complication, without mention of misadventure at the time of the procedure | CPT/HCPCS: G0463 ==

== ENCOUNTER 2020-09-21 00:24 | Day surgery (SDC) | payer OTHER | END 2020-09-21 22:50 | disposition home or self-care (01) | LOC: WOUND 00:24 | DX: T81.32XS Disruption of internal operation (surgical) wound, not elsewhere classified, sequela (principal); F17.200 Nicotine dependence, unspecified, uncomplicated | CPT/HCPCS: G0463 ==

== ENCOUNTER 2020-10-05 00:19 | Day surgery (SDC) | payer OTHER | END 2020-10-05 23:40 | disposition home or self-care (01) | LOC: WOUND 00:19 | DX: T81.32XS Disruption of internal operation (surgical) wound, not elsewhere classified, sequela (principal) | CPT/HCPCS: G0463 ==

== ENCOUNTER 2021-04-14 07:44 | Day surgery (SDC) | payer OTHER ==
[~2021-04-14] VITALS: Ht 157.5 cm; Wt 64.5 kg
[~2021-04-14 07:44] MED LIST changes: +ALOGLIPTIN25 M1 PO; +DULO60 PO; +FAMO40 PO; +POTCHL20ER PO; +Plavix75 MG PO; +VERA120 PO
--- NOTE | 2021-04-14 10:29 | NUR ---
04/14/21 1029 Patricia Fernández SALINE INJECTED INTO MULTIPLE POLYPS TO HELP IN REMOVAL. PATIENT TOLERATED THIS FINE
== END 2021-04-14 10:20 | disposition home or self-care (01) ==
LOC: ORSCSDS 07:44
PROVIDERS: Internal Medicine Gastroenterology
PROC: 3E0H8KZ Introduction of Other Diagnostic Substance into Lower GI, Via Natural or Artificial Opening Endoscopic (ICD-10-PCS; principal; 2021-04-14 09:15)
PROC: 0DBH8ZX Excision of Cecum, Via Natural or Artificial Opening Endoscopic, Diagnostic (ICD-10-PCS; principal; 2021-04-14 09:15)
PROC: 0DBK8ZX Excision of Ascending Colon, Via Natural or Artificial Opening Endoscopic, Diagnostic (ICD-10-PCS; principal; 2021-04-14 09:15)
DX: K52.9 Noninfective gastroenteritis and colitis, unspecified (principal); D12.0 Benign neoplasm of cecum; D12.2 Benign neoplasm of ascending colon; I10 Essential (primary) hypertension; J44.9 Chronic obstructive pulmonary disease, unspecified; K21.9 Gastro-esophageal reflux disease without esophagitis; F17.210 Nicotine dependence, cigarettes, uncomplicated; E11.9 Type 2 diabetes mellitus without complications; E78.00 Pure hypercholesterolemia, unspecified; Z79.899 Other long term (current) drug therapy; Z79.02 Long term (current) use of antithrombotics/antiplatelets
CPT/HCPCS: 82947; 88305; J2704

== ENCOUNTER 2021-06-01 12:22 | Observation (INO) | payer OTHER ==
[~2021-06-01] VITALS: Ht 157.5 cm; Wt 68.2 kg
[2021-06-01 13:12] LABS: BASOPHILS ABSOLUTE AUTO 0.06 K/mm3 (0.00-0.23); BASOPHILS PERCENT AUTO 1 % (0-2); EOSINOPHILS ABSOLUTE AUTO 0.16 K/mm3 (0.00-0.68); EOSINOPHILS PERCENT AUTO 2 % (0-6); Hematocrit 39.3 % (33.0-51.0); Hemoglobin 13.7 g/dL (11.5-16.0); IMMATURE GRAN ABSOLUTE AUTO 0.04 K/mm3 (0.00-0.10); IMMATURE GRAN PERCENT AUTO 0 % (0-1); LYMPHOCYTES ABSOLUTE AUTO 3.02 K/mm3 (0.84-5.20); LYMPHOCYTES PERCENT AUTO 31 % (21-46); MONOCYTES ABSOLUTE AUTO 0.55 K/mm3 (0.16-1.47); MONOCYTES PERCENT AUTO 6 % (4-13); Mean Corpuscular HGB 32.8 pg (26.0-34.0); Mean Corpuscular HGB Conc 34.9 g/dL (31.5-36.5); Mean Corpuscular Volume 94 fL (80-100); NEUTROPHILS ABSOLUTE AUTO 5.79 K/mm3 (1.96-9.15); NEUTROPHILS PERCENT AUTO 60 % (41-73); Platelet Count 241 K/mm3 (150-400); RDW Coefficient Variation 11.7 % (11.7-14.2); RDW Standard Deviation 40.5 fL (35.1-46.3); Red Blood Cell Count 4.18 M/mm3 (3.80-5.20); White Blood Cell Count 9.62 K/mm3 (4.00-11.30)
[2021-06-01 13:26] LABS: Alanine Aminotransfer (ALT/SGP 28 U/L (12-78); Albumin, Blood 3.9 g/dL (3.4-5.0); Albumin/Globulin Ratio 1.1 (0.8-1.8); Alk Phos 93 U/L (50-136); Anion Gap 6 mmol/L (6-16); Aspartate Aminotrans (AST/SGOT 19 U/L (12-37); Bilirubin, Total 0.4 mg/dL (0.1-1.0); Blood Urea Nitrogen 14 mg/dL (8-24); Bun/Creatinine Ratio 18.4 (12.0-20.0); CO2, Blood 26 mmol/L (21-32); Calcium, Blood 9.2 mg/dL (8.5-10.1); Chloride, Blood 97 mmol/L (98-108); Creatinine, Blood 0.76 mg/dL (0.40-1.00); Globulin, Blood 3.7 g/dL (2.2-4.0); Glomerular Filtration Rate >60 (60-); Glucose, Blood 283 mg/dL (70-99); Potassium, Blood 4.5 mmol/L (3.5-5.5); Sodium, Blood 129 mmol/L (136-145); Total Protein, Blood 7.6 g/dL (6.4-8.2); Troponin I <0.015 ng/mL (0.000-0.040)
[2021-06-01 15:04] LABS: International Normalized Ratio 0.98; Prothrombin Time Results 10.6 Sec (9.7-11.5)
--- NOTE | 2021-06-01 16:24 | NUR ---
Echocardiogram performed.
[2021-06-01] MEDS ORDERED: ATIVAN0.5 MG (17:48)
[2021-06-01] MEDS ORDERED: LORA.5 (17:49)
--- NOTE | 2021-06-01 18:45 | NUR ---
SHIFT SUMMARY PT ARRIVED TO UNIT FROM ED. REPORTS SEVERE CP AT 06/25. PHYSICIAN AWARE. MEDICATION ORDERED PER PHYSICIAN. PT REPORTS RELIEF. HR STABLE. BP STABLE. PT SBA TO COMMODE. OXYGEN SATURATION MAINTAINED ABOVE 92% ON RA. PT TO BE NPO AT MIDNIGHT FOR POSSIBLE ANGIO TOMORROW. HEPARIN GTT,SEE EMAR. WILL CONT TO MONITOR UNTIL REPORT GIVEN TO NIGHTSHIFT RN.
[2021-06-01 19:57] LABS: BASOPHILS ABSOLUTE AUTO 0.08 K/mm3 (0.00-0.23); BASOPHILS PERCENT AUTO 1 % (0-2); EOSINOPHILS ABSOLUTE AUTO 0.27 K/mm3 (0.00-0.68); EOSINOPHILS PERCENT AUTO 3 % (0-6); Hematocrit 39.1 % (33.0-51.0); Hemoglobin 13.6 g/dL (11.5-16.0); IMMATURE GRAN ABSOLUTE AUTO 0.05 K/mm3 (0.00-0.10); IMMATURE GRAN PERCENT AUTO 1 % (0-1); LYMPHOCYTES ABSOLUTE AUTO 3.25 K/mm3 (0.84-5.20); LYMPHOCYTES PERCENT AUTO 36 % (21-46); MONOCYTES ABSOLUTE AUTO 0.53 K/mm3 (0.16-1.47); MONOCYTES PERCENT AUTO 6 % (4-13); Mean Corpuscular HGB 33.2 pg (26.0-34.0); Mean Corpuscular HGB Conc 34.8 g/dL (31.5-36.5); Mean Corpuscular Volume 95 fL (80-100); NEUTROPHILS PERCENT AUTO 53 % (41-73); Platelet Count 245 K/mm3 (150-400); RDW Coefficient Variation 11.7 % (11.7-14.2); RDW Standard Deviation 41.2 fL (35.1-46.3); White Blood Cell Count 8.98 K/mm3 (4.00-11.30)
[2021-06-01 20:14] LABS: International Normalized Ratio 1.01; Prothrombin Time Results 10.9 Sec (9.7-11.5)
[2021-06-01 20:19] LABS: Anion Gap 6 mmol/L (6-16); Blood Urea Nitrogen 15 mg/dL (8-24); Bun/Creatinine Ratio 16.3 (12.0-20.0); CO2, Blood 26 mmol/L (21-32); Calcium, Blood 9.1 mg/dL (8.5-10.1); Chloride, Blood 102 mmol/L (98-108); Creatinine, Blood 0.92 mg/dL (0.40-1.00); Glomerular Filtration Rate >60 (60-); Glucose, Blood 137 mg/dL (70-99); Potassium, Blood 4.3 mmol/L (3.5-5.5); Sodium, Blood 134 mmol/L (136-145)
[2021-06-02 00:43] LABS: BASOPHILS ABSOLUTE AUTO 0.08 K/mm3 (0.00-0.23); BASOPHILS PERCENT AUTO 1 % (0-2); EOSINOPHILS PERCENT AUTO 3 % (0-6); Hematocrit 35.2 % (33.0-51.0); Hemoglobin 12.1 g/dL (11.5-16.0); IMMATURE GRAN ABSOLUTE AUTO 0.04 K/mm3 (0.00-0.10); IMMATURE GRAN PERCENT AUTO 1 % (0-1); LYMPHOCYTES ABSOLUTE AUTO 3.11 K/mm3 (0.84-5.20); LYMPHOCYTES PERCENT AUTO 38 % (21-46); MONOCYTES ABSOLUTE AUTO 0.52 K/mm3 (0.16-1.47); MONOCYTES PERCENT AUTO 6 % (4-13); Mean Corpuscular HGB Conc 34.4 g/dL (31.5-36.5); Mean Corpuscular Volume 96 fL (80-100); Mean Platelet Volume 9.7 fL (9.1-12.4); NEUTROPHILS ABSOLUTE AUTO 4.15 K/mm3 (1.96-9.15); NEUTROPHILS PERCENT AUTO 51 % (41-73); Platelet Count 203 K/mm3 (150-400); RDW Coefficient Variation 11.8 % (11.7-14.2); RDW Standard Deviation 41.3 fL (35.1-46.3); Red Blood Cell Count 3.67 M/mm3 (3.80-5.20)
[2021-06-02 01:04] LABS: Alanine Aminotransfer (ALT/SGP 23 U/L (12-78); Albumin, Blood 3.4 g/dL (3.4-5.0); Albumin/Globulin Ratio 1.1 (0.8-1.8); Alk Phos 67 U/L (50-136); Anion Gap 5 mmol/L (6-16); Aspartate Aminotrans (AST/SGOT 14 U/L (12-37); Bilirubin, Total 0.3 mg/dL (0.1-1.0); Blood Urea Nitrogen 17 mg/dL (8-24); Bun/Creatinine Ratio 16.5 (12.0-20.0); CO2, Blood 27 mmol/L (21-32); Calcium, Blood 8.2 mg/dL (8.5-10.1); Chloride, Blood 100 mmol/L (98-108); Creatinine, Blood 1.03 mg/dL (0.40-1.00); Globulin, Blood 3.2 g/dL (2.2-4.0); Glomerular Filtration Rate 55 (60-); Glucose, Blood 252 mg/dL (70-99); Magnesium, Blood 1.7 mg/dL (1.6-2.4); Potassium, Blood 4.1 mmol/L (3.5-5.5); Sodium, Blood 132 mmol/L (136-145); Total Protein, Blood 6.6 g/dL (6.4-8.2); Troponin I <0.015 ng/mL (0.000-0.040)
--- NOTE | 2021-06-02 02:33 | NUR ---
THIS LN TOOK OVER CARE AT 1845, PT IS ALERT ORIENTATED ABLE TO MAKE NEEDS KNOWN, CALL LIGHT WITHIN REACH, BED ALARM ON, NITRO PATCH IN PLACE, HEPARIN GTT RUNNING AT 13U/65KG/16.9ML HR, PATIENT C/O OF 8/10 PAIN REQUIRING MORPHINE 2MG Q1HR WITH LITTLE RELIEF REPORTED. PATIENT HAS A COLOSTOMY BAG THAT IS INTACT NOTED PANCAKE CONSISTENT DARK BROWN STOOL, NEW IV INSERTED LFA 22 GAUGE.
[2021-06-02 09:24] LABS: SARS-Cov-2 (COVID-19) PCR, MMC NEGATIVE (NEGATIVE)
--- NOTE | 2021-06-02 10:40 | NUR ---
PT ALERT AND ORIENTED X4. ON ROOM AIR SATING ABOVE 94%. TELE SHOWING SINUS IEBTH WITH HR 50'S. CHEST PAIN DESCRIBEDS ACHEY AND CONSTANT. CHEST PAIN UNCHANGING IN CHARACTERISTICS SINCE ADMIT PER PATIENT. MANAGING PAIN PER EMAR. PLAN FOR ANGIO THIS AM. HEPARIN INFUSING. NS INFUSING PER EMAR. BOWEL TONES PRESENT. COLOSTOMY TO LLQ DRAINING PASTY/BROWN OUTPUT. UP TO BSC WITH 1 PERSON ASSIST. URINE OUTPUT WNL. SCARS SCATTERED ON SKIN. PATIENT ANXIOUS TO GET ANGIO DONE WITH IN HOPES OF DECREASING PAIN. CALL LIGHT IN REACH. SLEEPING ON AND OFF THIS AM. COVID SWAB DONE AND NEGATIVE. WILL CONTINUE TO MONITOR.
--- NOTE | 2021-06-02 13:45 | NUR ---
PT TRANSFERRED TO [facility] AT THIS TIME FOR ANGIOGRAM.
--- NOTE | 2021-06-02 16:45 | NUR ---
PT ARRIVES TO RM [id number] FROM [facility]. R RADIAL SITE WNL, NO BLEEDING OR HEMATOMA NOTED. BEDSIDE REPORT RECEIVED FROM LORENA SMITH. WILL CONTINUE TO MONITOR AND DEFLATE TR BAND PER MD ORDERS. PT MEDICATED PER EMAR. CALL LIGHT IN REACH.
--- NOTE | 2021-06-03 05:32 | NUR ---
BODY COMPONENT ENGINEER SUMMARY PT IS AXO X4. PT REPORTED 3-4/10 ACHE UNDER HER LEFT BREAST THIS SHIFT BUT DID NOT APPEAR IN DISCOMFORT AROUND THE TIME SHE WAS REPORTING IT. PT DENIED ANY CHEST PRESSURE THIS SHIFT AND MAINTAINED O2 SATS >92% ON RM AIR. PT HAD THICK DRY STOOL IN OSTOMY APPLIANCE SO BOWEL CARE WAS ORDERED AND GIVEN. OSTOMY APPLIANCE CHANGED THIS SHIFT. PT ABLE TO AMBULATE TO [facility] W NO SOB OR CP. TELE SHOWING SR IN THE 60'S THIS SHIFT. R RADIAL SITE SHOWS NO S/S OF ACTIVE BLEEDING, OPSITE IS C/D/I. WILL REPORT TO ONCOMING RN.
[2021-06-03] MEDS ORDERED: ASPI81CH PO (10:26)
[2021-06-03] MEDS ORDERED: Isosorbide Mono30 MG PO (10:27)
--- NOTE | 2021-06-03 10:44 | NUR ---
PT DISCHARGED HOME WITH FAMILY. PRESCRIPTIONS CALLED TO [facility] PER PT REQUEST. DISCHARGE INSTRUCTIONS REVIEWED INCLUDING FOLLOW UP APPOINTMENT INSTRUCTIONS, MEDICATION LIST, AND EDUCATION. IVs X 2 REMOVED, CATHETERS INTACT. RIGHT RADIAL SITE WNL UPON DISCHARGE, SITE CARE INSTRUCTIONS REVIEWED WITH PT. PT VERBALIZES UNDERSTANDING OF ALL DISCHARGE INSTRUCTIONS, NO QUESTIONS OR CONCERNS AT THIS TIME. ALL BELONGINS SENT WITH PT. NO OTHER DISCHARGE NEEDS IDENTIFIED.
== END 2021-06-03 11:01 | disposition home or self-care (01) ==
LOC: ER 12:22 → ERHOLD 12:23 → PCU 12:23 → SURS 06-02 17:05 → PCU 06-03 09:47 → SURS 06-03 09:51
PROVIDERS: Emergency Medicine; Internal Medicine Cardiovascular Disease; Nurse Practitioner Acute Care; Physician Assistant; ADMIT Internal Medicine
DX: I25.110 Atherosclerotic heart disease of native coronary artery with unstable angina pectoris (principal); T82.855A Stenosis of coronary artery stent, initial encounter; I10 Essential (primary) hypertension; E11.9 Type 2 diabetes mellitus without complications; K21.9 Gastro-esophageal reflux disease without esophagitis; E78.00 Pure hypercholesterolemia, unspecified; I42.1 Obstructive hypertrophic cardiomyopathy; J44.9 Chronic obstructive pulmonary disease, unspecified; F17.210 Nicotine dependence, cigarettes, uncomplicated; F41.9 Anxiety disorder, unspecified; F32.9 Major depressive disorder, single episode, unspecified; Y71.2 Prosthetic and other implants, materials and accessory cardiovascular devices associated with adverse incidents; Z20.822 Contact with and (suspected) exposure to COVID-19; Z79.84 Long term (current) use of oral hypoglycemic drugs; Z79.02 Long term (current) use of antithrombotics/antiplatelets; Z95.5 Presence of coronary angioplasty implant and graft; Z88.8 Allergy status to other drugs, medicaments and biological substances; Z85.42 Personal history of malignant neoplasm of other parts of uterus; Z95.810 Presence of automatic (implantable) cardiac defibrillator; Z90.49 Acquired absence of other specified parts of digestive tract
CPT/HCPCS: 36415; 71046; 76937; 80048; 80053; 82947; 83735; 83880; 84484; 85025; 85347; 85610; 85651; 85730; 86140; 93005; 93010; 93306; 93356; 93454; 93571; 94640; 94664; 94760; 96374; 96375; 96376; 99152; 99153; 99285-25; A9270; C1725; C1769; C1773; C1874; C1887; C1894; C9113; C9600; C9601; C9604; G0378; J1644; J1885; J2250; J2270; J2370; J3010; J7030; J7040; J7050; Q9967; U0004

== ENCOUNTER → 2023-05-15 | Outpatient (CLI) | payer OTHER ==
[~2023-05-15] MED LIST changes: +ATIVAN0.5 MG; +Isosorbide Mono30 MG PO; +LORA.5
[2023-05-15 10:03] LABS: BASOPHILS ABSOLUTE AUTO 0.06 K/mm3 (0.00-0.23); BASOPHILS PERCENT AUTO 1 % (0-2); EOSINOPHILS ABSOLUTE AUTO 0.16 K/mm3 (0.00-0.68); EOSINOPHILS PERCENT AUTO 2 % (0-6); Hematocrit 34.4 % (33.0-51.0); Hemoglobin 12.4 g/dL (11.5-16.0); IMMATURE GRAN ABSOLUTE AUTO 0.03 K/mm3 (0.00-0.10); IMMATURE GRAN PERCENT AUTO 0 % (0-1); LYMPHOCYTES ABSOLUTE AUTO 2.68 K/mm3 (0.84-5.20); LYMPHOCYTES PERCENT AUTO 37 % (21-46); MONOCYTES ABSOLUTE AUTO 0.46 K/mm3 (0.16-1.47); MONOCYTES PERCENT AUTO 6 % (4-13); Mean Corpuscular HGB 32.2 pg (26.0-34.0); Mean Corpuscular Volume 89 fL (80-100); Mean Platelet Volume 9.6 fL (9.1-12.4); NEUTROPHILS PERCENT AUTO 53 % (41-73); Platelet Count 222 K/mm3 (150-400); RDW Coefficient Variation 12.7 % (11.7-14.2); RDW Standard Deviation 41.1 fL (35.1-46.3); Red Blood Cell Count 3.85 M/mm3 (3.80-5.20); White Blood Cell Count 7.19 K/mm3 (4.00-11.30)
[2023-05-15 10:17] LABS: Alanine Aminotransfer (ALT/SGP 18 U/L (12-78); Albumin, Blood 3.4 g/dL (3.4-5.0); Albumin/Globulin Ratio 1.1 (0.8-1.8); Alk Phos 106 U/L (50-136); Anion Gap 4 mmol/L (6-16); Aspartate Aminotrans (AST/SGOT 14 U/L (12-37); Bilirubin, Total 0.3 mg/dL (0.1-1.0); Blood Urea Nitrogen 4 mg/dL (8-24); Bun/Creatinine Ratio 5.6 (12.0-20.0); CHOL/HDL RATIO 2.8; CO2, Blood 28 mmol/L (21-32); Calcium, Blood 8.6 mg/dL (8.5-10.1); Chloride, Blood 101 mmol/L (98-108); Cholesterol 138 mg/dL (50-200); Creatinine, Blood 0.71 mg/dL (0.40-1.00); Glomerular Filtration Rate 98 (60-); Glucose, Blood 231 mg/dL (70-99); HDL Cholesterol 49 mg/dL (>39); Low Density Lipoprotein Chol 49 mg/dL (0-110); Potassium, Blood 3.5 mmol/L (3.5-5.5); Sodium, Blood 133 mmol/L (136-145); Total Protein, Blood 6.4 g/dL (6.4-8.2); Triglycerides 201 mg/dL (30-160); Very Low Density Lipoprot Chol 40 mg/dL (6-32)
== END | disposition home or self-care (01) ==
LOC: LAB SHORT 08:31
PROVIDERS: Student in an Organized Health Care Education/Training Program
DX: E11.40 Type 2 diabetes mellitus with diabetic neuropathy, unspecified (principal); I25.10 Atherosclerotic heart disease of native coronary artery without angina pectoris; I10 Essential (primary) hypertension; R30.0 Dysuria
CPT/HCPCS: 80053; 80061; 83036; 85025; 87077; 87086; 87186

== ENCOUNTER 2023-07-08 00:23 | Emergency (ER) | payer OTHER ==
[~2023-07-08] VITALS: Ht 157.5 cm; Wt 63.5 kg
[2023-07-08 00:32] LABS: BASOPHILS ABSOLUTE AUTO 0.05 K/mm3 (0.00-0.23); BASOPHILS PERCENT AUTO 1 % (0-2); EOSINOPHILS PERCENT AUTO 2 % (0-6); Hematocrit 36.4 % (33.0-51.0); Hemoglobin 13.1 g/dL (11.5-16.0); IMMATURE GRAN ABSOLUTE AUTO 0.02 K/mm3 (0.00-0.10); IMMATURE GRAN PERCENT AUTO 0 % (0-1); LYMPHOCYTES ABSOLUTE AUTO 2.21 K/mm3 (0.84-5.20); LYMPHOCYTES PERCENT AUTO 36 % (21-46); MONOCYTES ABSOLUTE AUTO 0.45 K/mm3 (0.16-1.47); MONOCYTES PERCENT AUTO 7 % (4-13); Mean Corpuscular HGB 33.5 pg (26.0-34.0); Mean Corpuscular Volume 93 fL (80-100); Mean Platelet Volume 9.5 fL (9.1-12.4); NEUTROPHILS ABSOLUTE AUTO 3.27 K/mm3 (1.96-9.15); NEUTROPHILS PERCENT AUTO 54 % (41-73); Platelet Count 229 K/mm3 (150-400); RDW Coefficient Variation 13.1 % (11.7-14.2); RDW Standard Deviation 45.2 fL (35.1-46.3); Red Blood Cell Count 3.91 M/mm3 (3.80-5.20)
[2023-07-08 01:47] LABS: Albumin, Blood 3.5 g/dL (3.4-5.0); Bilirubin, Total 0.4 mg/dL (0.1-1.0); Bun/Creatinine Ratio 15.2 (12.0-20.0); Creatinine, Blood 0.72 mg/dL (0.40-1.00); Globulin, Blood 3.6 g/dL (2.2-4.0); Potassium, Blood 4.3 mmol/L (3.5-5.5); Total Protein, Blood 7.1 g/dL (6.4-8.2)
[2023-07-08 04:00] VITALS: BP 170/67
== END 2023-07-08 05:03 | disposition home or self-care (01) ==
LOC: ER 00:23
PROVIDERS: Emergency Medicine
DX: K43.5 Parastomal hernia without obstruction or gangrene (principal); F17.210 Nicotine dependence, cigarettes, uncomplicated; E11.9 Type 2 diabetes mellitus without complications; I10 Essential (primary) hypertension; K21.9 Gastro-esophageal reflux disease without esophagitis; Z79.82 Long term (current) use of aspirin; Z79.899 Other long term (current) drug therapy; Z79.51 Long term (current) use of inhaled steroids; Z79.02 Long term (current) use of antithrombotics/antiplatelets; Z88.6 Allergy status to analgesic agent; Z88.8 Allergy status to other drugs, medicaments and biological substances
CPT/HCPCS: 74177; 80053; 85025; 96374-59; 96375; 96376; 99285-25; A9270; J2270; J2405; Q9967

== ENCOUNTER 2025-01-07 10:35 | Inpatient (IN) | payer OTHER ==
[~2025-01-07] VITALS: Ht 157.5 cm; Wt 62.1 kg
[2025-01-07 11:44] LABS: Source, Urine Straight Cath
[2025-01-07 11:47] LABS: Appearance, Urine Clear (Clear); Bilirubin, Urine Neg (Neg); Blood, Urine 3+ (Neg); Color, Urine Yellow (P-Yellow); Glucose Qualitative, Urine 3+ (Neg); Ketones, Urine Neg (Neg); Leukocyte Esterase, Urine 2+ (Neg); Nitrite, Urine Neg (Neg); Protein, Urine 1+ (Neg); Urobilinogen, Urine 1+ (Normal)
[2025-01-07] MEDS ORDERED: NS 1,000 ML IV SCH ×2 (11:55→15:45)
[2025-01-07] MEDS ORDERED: Methocarbamol 500 MG Tab PO ONE (11:55)
[2025-01-07] MEDS ORDERED: Ketorolac Tromethamine 30mg Vial IV ONE (11:55)
[2025-01-07 12:03] LABS: Albumin, Blood 1.6 g/dL (3.4-5.0); Albumin/Globulin Ratio 0.4 (0.8-1.8); Bilirubin, Total 1.5 mg/dL (0.1-1.0); Bun/Creatinine Ratio 28.3 (12.0-20.0); Calcium, Blood 7.7 mg/dL (8.5-10.1); Creatinine, Blood 1.13 mg/dL (0.40-1.00); Globulin, Blood 4.1 g/dL (2.2-4.0); Potassium, Blood 2.6 mmol/L (3.5-5.5); Total Protein, Blood 5.7 g/dL (6.4-8.2)
[2025-01-07 12:18] LABS: White Blood Cells, Urine 25-50 /hpf (0-5); Yeast/Fungi Urine Many /hpf
[2025-01-07 12:19] LABS: Bacteria Many /hpf; Squamous Epithelial Cells Rare /hpf (Few)
[2025-01-07] MEDS ORDERED: LORAZEPAM0.5 MG PO (12:51)
[2025-01-07] MEDS ORDERED: Ampicillin Sod/Sulbactam Sod 3 GM in NS 100 ML IV ONE (12:55)
[2025-01-07] MEDS ORDERED: Potassium Chl 20MEQ/Water100ML 100 ML IV SCH (12:55)
[2025-01-07] MEDS ORDERED: Morphine Sulfate 4 MG/1 ML Injection IV ONE ×2 (13:00→13:45)
[2025-01-07] MEDS ORDERED: INSULIN GL100 UNIT/2 SC (13:02)
[2025-01-07 13:35] LABS: Hematocrit 26.1 % (33.0-51.0); Mean Corpuscular Volume 86 fL (80-100); Mean Platelet Volume 11.8 fL (9.1-12.4); Platelet Count 107 K/mm3 (150-400); RDW Coefficient Variation 11.9 % (11.7-14.2); Red Blood Cell Count 3.04 M/mm3 (3.80-5.20); White Blood Cell Count 22.32 K/mm3 (4.00-11.30)
[2025-01-07 13:38] LABS: BAND PERCENT MAN 6 % (0-8); BASOPHILS PERCENT MAN 0 % (0-2); EOSINOPHILS ABSOLUTE MAN 0.22 K/mm3 (0.00-0.68); EOSINOPHILS PERCENT MAN 1 % (0-6); LYMPHOCYTES ABSOLUTE MAN 0.44 K/mm3 (0.84-5.20); LYMPHOCYTES PERCENT MAN 2 % (21-46); MONOCYTES PERCENT MAN 0 % (4-13); NEUTROPHILS ABSOLUTE MAN 21.65 K/mm3 (1.96-9.15); SEG NEUTROPHILS PERCENT MAN 91 % (41-73); TOTAL CELLS COUNTED 100
[2025-01-07 13:54] LABS: Phosphorus, Blood 3.1 mg/dL (2.5-4.9)
[2025-01-07 13:56] LABS: Magnesium, Blood 1.1 mg/dL (1.6-2.4)
[2025-01-07] MEDS ORDERED: Magnesium Sulf 2 GM/Water 50ML 50 ML IV ONE (14:00)
[2025-01-07] MEDS ORDERED: Acetaminophen 325 MG TABLET PO PRN (15:45)
[2025-01-07] MEDS ORDERED: FLU VACC TS2024-25(6MOS UP)/PF 45 MCG/0.5 ML SYRINGE IM PRN (15:45)
[2025-01-07] MEDS ORDERED: LORazepam 0.5 MG Tab PO PRN (16:55)
[2025-01-07] MEDS ORDERED: N-Acetylcysteine 600 MG CAP PO SCH (17:00)
[2025-01-07] MEDS ORDERED: Vancomycin HCL 1,500 MG in NS 250 ML IV ONE (17:00)
[2025-01-07] MEDS ORDERED: MetroNIDAZOLE 500MG/NS 100 ml 100 ML IV SCH (17:03)
[2025-01-07] MEDS ORDERED: Ampicillin Sod/Sulbactam Sod 3 GM in NS 100 ML IV SCH (18:00)
[2025-01-07] MEDS ORDERED: CefTRIAXone Sodium 2,000 MG in NS 100 ML IV SCH (18:00)
--- NOTE | 2025-01-07 18:04 | NUR ---
4410- RECEIVED REPORT FROM ER NURSE LINDSEY.
[2025-01-07] MEDS ORDERED: Insulin Human Lispro 100 Units/ML 3ML Syringe SC SCH (19:00)
--- NOTE | 2025-01-07 19:11 | NUR ---
1825- PT TO MEDICAL FLOOR ON 2 L O2. SPEEDY CAME TO BEDSIDE AT 1840 AND STATED DUE TO PT'S CT SCAN PT IS GOING TO BE TRANSFERRED TO ICU NOW.
[2025-01-07 19:27] VITALS: BP 124/59
--- NOTE | 2025-01-07 19:32 | NUR ---
1924- REPORT GIVEN TO CLINICAL TRIAL LEADER HOWARD. ALL QUESTIONS ANSWERED.
[2025-01-07 19:50] LABS: Magnesium, Blood 1.8 mg/dL (1.6-2.4)
[2025-01-07] MEDS ORDERED: Albuterol HFA200 ACT/6.7 GM INH INH SCH (20:00)
[2025-01-07] MEDS ORDERED: Meropenem 1,000 MG in NS 100 ML IV SCH (20:00)
[2025-01-07] MEDS ORDERED: Mometasone/Formoterol MDI 200/5 mcg 13 GM INH SCH (20:00)
[2025-01-07] MEDS ORDERED: Clindamycin 900mg in D5W 50ML 50 ML IV SCH (20:00)
[2025-01-07] MEDS ORDERED: propofoL 20 ML IV ONE (20:55)
[2025-01-07] MEDS ORDERED: Rocuronium Bromide 10 MG/ML 5ML Injection IV ONE (20:55)
[2025-01-07] MEDS ORDERED: Lidocaine HCl 2% 20 ML MDV ONE (20:55)
[2025-01-07] MEDS ORDERED: FentaNYL Citrate 50 MCG/ML 2 ML Injection ONE (20:55)
[2025-01-07] MEDS ORDERED: Insulin Glargine-Yfgn 100 Unit/mL 3 ML SYR SC SCH (21:00)
[2025-01-07] MEDS ORDERED: Gabapentin 300 MG Cap PO SCH (21:00)
[2025-01-07] MEDS ORDERED: DULoxetine HCL 60 MG Capsule DR PO SCH (21:00)
[2025-01-07] MEDS ORDERED: TraZODone HCl 100 MG Tab PO SCH (21:00)
--- NOTE | 2025-01-07 21:13 | NUR ---
TRANSFER FROM [place] [id number] TO ICU 10: PT ARRIVE TO THE UNIT @ 1940, TRANSFERRED VIA SLID SHEET TO BED. REPORT RECIEVED FROM DERECK SMITH VIA PHONE. PT ARRIVES A&O X 4, DROWSY AND COOPERATIVE WITH CARE. PT ON NC @ 3 LPM, SPO2 94<, CLEAR LUNG SOUNDS AND DENIES SOB. PT SR ON MONITOR WITH FREQUENT PAC'S, BP HR 70-80'S, BP STABLE AND DENIES CHEST PAIN AT THIS TIME. PT ABD + BT, SOFT AND NON-TENDER; LLQ HAS COLOSTOMY NOTED WITH A SMALL PORTION OF INTESTIONS EXPOSED, APPEARS PINK/MOIST WITH BROWN OUTPUT NOTED. PT HAS SWOLLEN PERINEUM, R. LABIA WITH INCISION AND DRAINAGE NOTED FROM PREVIOUS BARTHOLIN CYST DRAINAGE. R. THIGH/PERINEUM TENDER AND WARM TO TOUCH; PT REPORTS 9/10 PAIN, THROBBING/CONSTANT. PT HAS RAC/RFA PIV THAT ARE BOTH PATENT AND INFUSING NS AND ANTIBIOTICS. PT HAS SAM IN PLACE WITH YELLOW URINE NOTED; CATH CARE COMPLETED AFTER ARRIVAL TO UNIT. DR. CORMIER AT BEDSIDE TO FILL OUT CONSENT FORM FOR I&D. PT LEFT THE UNIT AT 2107 FOR THE OR WITH ONE RADIO ELECTRONICS OFFICER AND ANESTHESIOLOGIST. PT'S MOTHER, SRIDHAR CALLED BY THIS RN AND UPDATED ON SURGERY AND POTENTIAL PLAN TO [facility]ER [facility].
[2025-01-07] MEDS ORDERED: Ondansetron HCl 2 MG / ML 2ML Vial ONE (21:24)
[2025-01-07 21:28] LABS: Bun/Creatinine Ratio 25.8 (12.0-20.0); Calcium, Blood 7.7 mg/dL (8.5-10.1); Creatinine, Blood 0.97 mg/dL (0.40-1.00); Potassium, Blood 2.7 mmol/L (3.5-5.5)
[2025-01-07] MEDS ORDERED: Vasopressin 20 UNITS/ML 1ML Vial ONE (21:45)
[2025-01-07 21:55] VITALS: BP 124/59
[2025-01-07] MEDS ORDERED: Sugammadex Sodium 200 MG/2ML SDV (100 MG/ML) ONE (22:36)
[2025-01-07] MEDS ORDERED: HYDROmorphone HCl/Pf 1MG SYR IV PRN (23:40)
[2025-01-07] MEDS ORDERED: LORazepam 2 MG/ML 1ML Injection IV PRN (23:40)
[2025-01-08] VITALS (21 sets, daily range): BP systolic 91–124; BP diastolic 51–74
[2025-01-08] MEDS ORDERED: Insulin Human Lispro 100 Units/ML 3ML Syringe SC SCH
[2025-01-08] MEDS ORDERED: Potassium Chloride 40 MEQ in NS 250 ML IV ONE (00:10)
--- NOTE | 2025-01-08 00:10 | NUR ---
PT UPDATE: PT ARRIVES BACK FROM OR AROUND 0; INCISION PACKED WITH DAKIN SOAKED KERLEX WITH ABD PADS REINFORCING INCISION. BANDAGES ARE C/D/I AT THIS TIME. UNABLE TO OBTAIN PULSE OX READING; PROVIDER AWARE AND ABG ORDERS RECIEVED. PT ARRIVED FROM OR ON NON-REBREATHER @ 8 LPM. CURRENTLY PT ON NON-REBREATHER @ 15 LPM. PT C/O 07/25 PO-OP PAIN, DR CORMIER UPDATED AND ORDERS PLACED. PT RECIEVED 1 MG DILAUDID WITH GOOD EFFECT. AT THIS TIME PT A&O X 2; ANSWERING SIMPLE QUESTIONS BUT NOT ABLE TO ANSWER ORIENTING QUESTIONS. BED LOWERED, CALL LIGHT IN REACH. WILL CONT. PLAN OF CARE.
[2025-01-08 00:19] LABS: PCO2 Arterial 42.9 mmHg (35-45); PO2 Arterial 249 mmHg (80-100); pH Blood Arterial 7.34 (7.35-7.45)
--- NOTE | 2025-01-08 01:00 | NUR ---
PT UPDATE: PT HAVING EPISODES OF APNEA, DESATS DOWN TO 78, AND IS REQUIRING DEEP BREATHING COACHING TO RECOVER SPO2 TO 90<. PT VERY DROWSY AT THIS, MENTATION HAS IMPROVED. DR. NARAYANAN NOTIFIED AND ORDERS FOR CPAP RECIEVED. RT CALLED AND PLACED CPAP ON PATIENT; SETTINGS ARE AUTO 8-20 WITH A 5L BLEED. PT TOLERATES CPAP WELL, SPO2 94<.
[2025-01-08 03:49] LABS: Bun/Creatinine Ratio 27.2 (12.0-20.0); Calcium, Blood 7.7 mg/dL (8.5-10.1); Creatinine, Blood 0.88 mg/dL (0.40-1.00); Potassium, Blood 3.5 mmol/L (3.5-5.5)
[2025-01-08 05:22] LABS: Hematocrit 22.6 % (33.0-51.0); NRBC ABSOLUTE 0.07 K/mm3 (0.00-0.02); NRBC Auto 0.4 /100 WBC (0.0-0.2); RDW Coefficient Variation 12.5 % (11.7-14.2); RDW Standard Deviation 39.8 fL (35.1-46.3); Red Blood Cell Count 2.59 M/mm3 (3.80-5.20)
[2025-01-08 05:25] LABS: Mean Platelet Volume 11.8 fL (9.1-12.4); Platelet Count 79 K/mm3 (150-400); White Blood Cell Count 17.23 K/mm3 (4.00-11.30)
[2025-01-08 05:27] LABS: Mean Corpuscular Volume 87 fL (80-100)
[2025-01-08] MEDS ORDERED: Insulin Glargine-Yfgn 100 Unit/mL 3 ML SYR SC ONE (05:55)
[2025-01-08] MEDS ORDERED: Vancomycin HCL 750 MG in NS 250 ML IV SCH (06:00)
--- NOTE | 2025-01-08 06:12 | NUR ---
SHIFT SUMMARY: NO CHANGES SINCE PREVIOUS NOTE; PT REMAINS ON CPAP SETTINGS. VSS AT THIS TIME. PRN DILAUDID GIVEN X 3 WITH GOOD EFFECT. PT SLEEPING OFF AND ON. DRESSING TO PERINEUM REMAINS C/D/I. PT CBG 365 THIS MORNING, PROVIDER NOTIFIED PER SLIDING SCALE ORDER AND ONE TIME ORDER FOR 10 UNITS LANTUS ORDERED. STILL AWAITNG EMS TRANSPORT TO ARRIVE TO TRANSPORT PT TO [facility]. WILL CALL REPORT TO [facility] ONCE THERE IS AN ETA FOR DEPARTURE. PLAN TO CALL PT'S MOTHER, SRIDHAR, WITH UPDATE WHEN PT LEAVES. BED LOWERED, CALL LIGHT IN REACH.
--- NOTE | 2025-01-08 07:01 | NUR ---
PT TRASNFERRED VIA EMS: PT LEFT THE UNIT AT 0645; REPORT CALLED PLACED TO ROSELYN AT [facility] TO ASSUMED CARE OF PT. REPORT GIVEN TO DIGITAL BUSINESS ANALYST. ALL PT'S BELONGINGS SENT WITH PT. PT'S MOTHER, SRIDHAR, UPDATED ON TRANSPORT INFO.
[2025-01-08] MEDS ORDERED: Enoxaparin 40 MG/0.4 ML SYR SC SCH (09:00)
[2025-01-08] MEDS ORDERED: Isosorbide Mononitrate 30 MG TABCR PO SCH (09:00)
[2025-01-08] MEDS ORDERED: Atorvastatin 40 MG Tab PO SCH (09:00)
[2025-01-08] MEDS ORDERED: Insulin Glargine-Yfgn 100 Unit/mL 3 ML SYR SC SCH (09:00)
[2025-01-08] MEDS ORDERED: Famotidine 20 MG Tab PO SCH (09:00)
[2025-01-08] MEDS ORDERED: Clopidogrel Bisulfate 75 MG Tab PO SCH (09:00)
[2025-01-08] MEDS ORDERED: VERAPAMIL HCL 120 MG PO SCH (09:00)
[2025-01-11 21:50] LABS: CK TOTAL 65 U/L (26-192); CK-BB 0 % (0-0); CK-MACRO TYPE I 5 % (0-0); CK-MACRO TYPE II 0 % (0-0); CK-MB 0 % (0-4); CK-MM 95 % (96-100)
== END 2025-01-08 06:44 | disposition short-term general hospital (02) | DRG 463 ==
LOC: ER 10:35 → MEDS 17:26 → ICUE 17:26 → MEDS 18:26 → ICUE 19:35
PROVIDERS: Emergency Medicine; Student in an Organized Health Care Education/Training Program; ADMIT Internal Medicine
PROC: 0T9B70Z Drainage of Bladder with Drainage Device, Via Natural or Artificial Opening (ICD-10-PCS; 2025-01-07)
PROC: 0JBB0ZZ Excision of Perineum Subcutaneous Tissue and Fascia, Open Approach (ICD-10-PCS; principal; 2025-01-08)
PROC: 0JBL0ZZ Excision of Right Upper Leg Subcutaneous Tissue and Fascia, Open Approach (ICD-10-PCS; 2025-01-08)
PROC: 4A033R1 Measurement of Arterial Saturation, Peripheral, Percutaneous Approach (ICD-10-PCS; 2025-01-08)
DX: M72.6 Necrotizing fasciitis (principal); N17.0 Acute kidney failure with tubular necrosis; E87.1 Hypo-osmolality and hyponatremia; N76.4 Abscess of vulva; N39.0 Urinary tract infection, site not specified; I10 Essential (primary) hypertension; I25.10 Atherosclerotic heart disease of native coronary artery without angina pectoris; F41.9 Anxiety disorder, unspecified; F32.A Depression, unspecified; K21.9 Gastro-esophageal reflux disease without esophagitis; G47.00 Insomnia, unspecified; K58.9 Irritable bowel syndrome, unspecified; F17.210 Nicotine dependence, cigarettes, uncomplicated; J44.9 Chronic obstructive pulmonary disease, unspecified; Z90.49 Acquired absence of other specified parts of digestive tract; E83.42 Hypomagnesemia; E11.65 Type 2 diabetes mellitus with hyperglycemia; E87.6 Hypokalemia; R33.9 Retention of urine, unspecified; D69.6 Thrombocytopenia, unspecified; D72.829 Elevated white blood cell count, unspecified; Z93.3 Colostomy status; Z90.710 Acquired absence of both cervix and uterus; Z88.8 Allergy status to other drugs, medicaments and biological substances; Z79.899 Other long term (current) drug therapy; Z79.4 Long term (current) use of insulin; Z79.84 Long term (current) use of oral hypoglycemic drugs; Z95.5 Presence of coronary angioplasty implant and graft; Z87.19 Personal history of other diseases of the digestive system; Z95.810 Presence of automatic (implantable) cardiac defibrillator; Z85.42 Personal history of malignant neoplasm of other parts of uterus; Z79.02 Long term (current) use of antithrombotics/antiplatelets; Z79.51 Long term (current) use of inhaled steroids; Z86.79 Personal history of other diseases of the circulatory system
CPT/HCPCS: 36415; 36600; 51702; 51798; 72131; 72193; 80048; 80053; 81001; 82550; 82552; 82803; 82947; 83605; 83735; 84100; 85025; 85027; 85651; 86140; 87040; 87071; 87075; 87076; 87086; 87185; 87205; 93005; 93010; 94660; 96361-59; 96365-59; 96367-59; 96375-59; 96376-59; 99285-25; A9270; J0295; J1171; J1815; J1885; J2185; J2270; J2405; J2704; J3010; J3370; J3475; J3480; J7030; J7050; Q9967

== ENCOUNTER 2025-09-01 16:54 | Inpatient (IN) | payer OTHER ==
[~2025-09-01] VITALS: Ht 157.5 cm; Wt 61.5 kg
[~2025-09-01 16:54] MED LIST changes: -FAMO40 PO; +GABA300 PO; +INSULIN GL100 UNIT/2 SC; +LORAZEPAM0.5 MG PO; +TRAZ50 PO
[2025-09-01] MEDS ORDERED: Morphine Sulfate 4 MG/1 ML Injection IV ONE (17:50)
[2025-09-01 18:09] LABS: BASOPHILS ABSOLUTE AUTO 0.06 K/mm3 (0.00-0.23); BASOPHILS PERCENT AUTO 1 % (0-2); EOSINOPHILS ABSOLUTE AUTO 0.05 K/mm3 (0.00-0.68); EOSINOPHILS PERCENT AUTO 0 % (0-6); Hematocrit 27.7 % (33.0-51.0); Hemoglobin 9.2 g/dL (11.5-16.0); IMMATURE GRAN ABSOLUTE AUTO 0.25 K/mm3 (0.00-0.10); IMMATURE GRAN PERCENT AUTO 2 % (0-1); LYMPHOCYTES ABSOLUTE AUTO 1.22 K/mm3 (0.84-5.20); LYMPHOCYTES PERCENT AUTO 10 % (21-46); MONOCYTES ABSOLUTE AUTO 0.76 K/mm3 (0.16-1.47); MONOCYTES PERCENT AUTO 6 % (4-13); Mean Corpuscular HGB Conc 33.2 g/dL (31.5-36.5); Mean Corpuscular Volume 89 fL (80-100); NEUTROPHILS ABSOLUTE AUTO 9.69 K/mm3 (1.96-9.15); NEUTROPHILS PERCENT AUTO 81 % (41-73); NRBC ABSOLUTE 0.00 K/mm3 (0.00-0.02); NRBC Auto 0.0 /100 WBC (0.0-0.2); Platelet Count 301 K/mm3 (150-400); RDW Coefficient Variation 13.6 % (11.7-14.2); RDW Standard Deviation 44.3 fL (35.1-46.3)
[2025-09-01 18:23] LABS: Alanine Aminotransfer (ALT/SGP 18.0 U/L (12-78); Albumin, Blood 2.6 g/dL (3.4-5.0); Albumin/Globulin Ratio 0.6 (0.8-1.8); Anion Gap 8.0 mmol/L (3-11); Aspartate Aminotrans (AST/SGOT 11.0 U/L (12-37); Bilirubin, Total 0.6 mg/dL (0.1-1.0); Blood Urea Nitrogen 17.0 mg/dL (8-24); CO2, Blood 26.0 mmol/L (21-32); Calcium, Blood 8.6 mg/dL (8.5-10.1); Chloride, Blood 98.0 mmol/L (98-108); Creatinine, Blood 0.55 mg/dL (0.40-1.00); Globulin, Blood 4.0 g/dL (2.2-4.0); Glucose, Blood 330.0 mg/dL (70-99); Potassium, Blood 3.7 mmol/L (3.5-5.5); Sodium, Blood 128.0 mmol/L (136-145); Total Protein, Blood 6.6 g/dL (6.4-8.2)
[2025-09-01 18:45] LABS: Influenza A, PCR NEGATIVE (NEGATIVE); Influenza B, PCR NEGATIVE (NEGATIVE); Resp Syncytial Virus, PCR NEGATIVE (NEGATIVE); SARS-Cov-2 (COVID-19) PCR, MMC NEGATIVE (NEGATIVE)
[2025-09-01] MEDS ORDERED: Ipratropium/Albuterol SulF 2.5-0.5MG/3 ML Amp INH ONE (18:55)
[2025-09-01] MEDS ORDERED: HYDROmorphone HCl/Pf 1MG SYR IV ONE ×2 (19:00→21:25)
[2025-09-01] MEDS ORDERED: Clindamycin 600mg in D5W 50 ML IV ONE (21:25)
[2025-09-01] MEDS ORDERED: Piperacillin/Tazobactam Sod 3.375 GM in NS 100 ML IV ONE (21:25)
[2025-09-01] MEDS ORDERED: Vancomycin (Pharmacy Consult) IV PRN (21:25)
[2025-09-01] MEDS ORDERED: FentaNYL Citrate 50 MCG/ML 2 ML Injection IV STA (22:54)
[2025-09-01] MEDS ORDERED: FLU VACC TS2025-26(6MOS UP)/PF 45 MCG/0.5 ML SYRINGE IM SCH (23:30)
[2025-09-01] MEDS ORDERED: Magnesium Hydroxide Conc 10 ML UDC PO PRN (23:30)
[2025-09-01] MEDS ORDERED: CLINDAMYCIN PHOSPHATE/D5W 50 ML IV ONE (23:45)
[2025-09-01] MEDS ORDERED: Clindamycin Phosphate 300 MG in NS 50 ML IV ONE (23:45)
[2025-09-02] MEDS ORDERED: Morphine Sulfate 4 MG/1 ML Injection IV PRN (02:25)
[2025-09-02] MEDS ORDERED: FentaNYL Citrate 50 MCG/ML 2 ML Injection IV PRN ×2 (02:25→08:10)
[2025-09-02 02:33] VITALS: BP 167/64
[2025-09-02 03:46] LABS: Source, Urine Foley catheter
[2025-09-02 04:05] LABS: Bilirubin, Urine Neg (Neg); Glucose Qualitative, Urine 1+ (Neg); Ketones, Urine Neg (Neg); Leukocyte Esterase, Urine 3+ (Neg); Protein, Urine 3+ (Neg); Specific Gravity, Urine 1.010 (1.003-1.022); Urobilinogen, Urine 1+ (Normal)
[2025-09-02] MEDS ORDERED: Vancomycin (Pharmacy Consult) IV PRN (04:20)
[2025-09-02 04:21] LABS: Color, Urine Yellow (P-Yellow)
[2025-09-02 04:23] LABS: Red Blood Cells, Urine 0-2 /hpf (0-2); White Blood Cells, Urine 25-50 /hpf (0-5)
[2025-09-02 04:56] LABS: BASOPHILS ABSOLUTE AUTO 0.05 K/mm3 (0.00-0.23); BASOPHILS PERCENT AUTO 1 % (0-2); EOSINOPHILS ABSOLUTE AUTO 0.03 K/mm3 (0.00-0.68); EOSINOPHILS PERCENT AUTO 0 % (0-6); Hematocrit 26.5 % (33.0-51.0); Hemoglobin 8.6 g/dL (11.5-16.0); IMMATURE GRAN ABSOLUTE AUTO 0.26 K/mm3 (0.00-0.10); IMMATURE GRAN PERCENT AUTO 3 % (0-1); LYMPHOCYTES ABSOLUTE AUTO 1.14 K/mm3 (0.84-5.20); LYMPHOCYTES PERCENT AUTO 14 % (21-46); MONOCYTES ABSOLUTE AUTO 0.75 K/mm3 (0.16-1.47); MONOCYTES PERCENT AUTO 9 % (4-13); Mean Corpuscular HGB Conc 32.5 g/dL (31.5-36.5); Mean Corpuscular Volume 90 fL (80-100); NEUTROPHILS ABSOLUTE AUTO 5.89 K/mm3 (1.96-9.15); NEUTROPHILS PERCENT AUTO 73 % (41-73); NRBC ABSOLUTE 0.00 K/mm3 (0.00-0.02); NRBC Auto 0.0 /100 WBC (0.0-0.2); Platelet Count 268 K/mm3 (150-400); RDW Coefficient Variation 13.7 % (11.7-14.2); RDW Standard Deviation 45.4 fL (35.1-46.3)
[2025-09-02 05:25] LABS: Alanine Aminotransfer (ALT/SGP 15.0 U/L (12-78); Albumin, Blood 2.4 g/dL (3.4-5.0); Albumin/Globulin Ratio 0.6 (0.8-1.8); Anion Gap 5.0 mmol/L (3-11); Aspartate Aminotrans (AST/SGOT 9.0 U/L (12-37); Bilirubin, Total 0.6 mg/dL (0.1-1.0); Blood Urea Nitrogen 14.0 mg/dL (8-24); CO2, Blood 29.0 mmol/L (21-32); Calcium, Blood 8.4 mg/dL (8.5-10.1); Chloride, Blood 102.0 mmol/L (98-108); Creatinine, Blood 0.78 mg/dL (0.40-1.00); Globulin, Blood 3.7 g/dL (2.2-4.0); Glucose, Blood 245.0 mg/dL (70-99); Magnesium, Blood 2.0 mg/dL (1.6-2.4); Potassium, Blood 3.6 mmol/L (3.5-5.5); Sodium, Blood 132.0 mmol/L (136-145); Total Protein, Blood 6.1 g/dL (6.4-8.2)
[2025-09-02] MEDS ORDERED: Piperacillin/Tazobactam Sod 3.375 GM in NS 100 ML IV SCH (06:00)
[2025-09-02 07:27] VITALS: BP 138/44
[2025-09-02] MEDS ORDERED: Insulin Human Lispro 100 Units/ML 3ML Syringe SC SCH (07:30)
[2025-09-02] MEDS ORDERED: Clindamycin 900mg in D5W 50ML 50 ML IV SCH (08:00)
--- NOTE | 2025-09-02 08:45 | NUR ---
SHIFT SUMMARY: PATIENT ARRIVED FROM ER AROUND 0230 THIS MORNING VIA GURNEY. PATIENT IS A&OX4. PATIENT HAS BEEN SLIGHTLY IRRITABLE DUE TO NOT BEING ABLE TO HAVE WATER AND HER PAIN WAS NOT MANAGED UPON ARRIVAL. PATIENT WAS EDUCATED ON WHY SHE HAD TO REMAIN NPO FOR POSSIBLE SURGERY LATER TODAY AND PREVENT ASPIRATION DURING SURGERY. PATIENT VERBALIZED UNDERSTANDING OF EDUCATION ON THIS. DR. VILLANUEVA WAS CALLED AND NOTIFIED THAT PATIENTS PAIN HAS NOT BEEN MANAGED, IN WHICH MD PLACED IV PRN PAIN MEDS AND THEN WERE GIVEN TO PATIENT PER EMAR. IV PRN PAIN MEDICATIONS ORDERED HAVE BEEN ABLE TO MANAGE PATIENTS PAIN SO FAR. PATIENT HAS SUPRAPUBIC WOUND WITH A SMALL HOLE DRAINING MODERATE AMOUNT OF LIGHT TO DARK BROWN LIQUID OUTPUT (SEE WOUND PICTURES IN CHART). SHE ALSO HAS A ULCER/WOUND ON INNER RIGHT INGUINAL REGION OF THIGH THAT IS ALSO DRAINING MODERATE AMOUNT OF LIGHT TO DARK BROWN LIQUID OUTPUT (SEE WOUND PICTURES IN CHART). BOTH AREAS WERE CLEANSED, PAT DRY, THEN PLACED EXUDRY SMALL PADS AND ABD PADS ON TOP AND ARE HELD IN PLACE BY ATTENDS. PATIENT ALSO HAS SMALL OPEN WOUNDS ON HER LOWER BACK (SEE WOUND PICTURES IN CHART) AND WERE ALSO CLEANSED, PAT DRY AND PLACED A MEPLIEX DUE TO THESE WOUNDS BEING OVER BONY PROMINENCE AND THESE DID NOT HAVE EXUDATE AT THIS TIME. PATIENT CHRONIC SAM WAS CHANGED SINCE PATIENT STATED "I DON'T REMEMBER THE LAST TIME IT WAS CHANGED." PATIENT TOLERATED THE PROCEDURE WELL. NEW SAM DRAINING TO GRAVITY WITH DARK JUAN URINE OUTPUT. UA WAS SENT PER PROTOCOL POST PLACEMENT. PATIENTS SOILED CLOTHES, BLANKET, AND PERSONAL PILLOW WERE PLACED IN BLUE SOILED BAGS WITH PATIENT LABEL STICKERS. PATIENT ALSO NOTED TO HAVE X1 BOX OF CIGARETTES IN HAND IN WHICH PATIENT AGREED TO HAVE THE BOX LOCK ON THE UNIT AND IS IN HER LOCKED DRAWER OUTSIDE OF ROOM. PATIENT IS LAYING IN BED WITH CALL LIGHT IN REACH. SHE CALLS APPROPRIATELY AND IS ABLE TO MAKE HER NEEDS KNOWN.
[2025-09-02] MEDS ORDERED: Enoxaparin 40 MG/0.4 ML SYR SC SCH (09:00)
[2025-09-02] MEDS ORDERED: Lactobacil 2-S.Thermo-Bifido 1 1 Cap PO SCH (09:00)
[2025-09-02] MEDS ORDERED: NS 250 ML IV PRN (10:30)
[2025-09-02] MEDS ORDERED: MASOPHEN500 M2 PO (13:21)
[2025-09-02] MEDS ORDERED: VITAMIN C125 MG PO (13:22)
[2025-09-02] MEDS ORDERED: HYDMOR4 PO (13:24)
[2025-09-02] MEDS ORDERED: CYCL10 PO (13:25)
[2025-09-02] MEDS ORDERED: BISA10S PR (13:25)
[2025-09-02] MEDS ORDERED: ESCI20 PO (13:25)
[2025-09-02] MEDS ORDERED: FENTANYL1 EAC7 TOP (13:26)
[2025-09-02] MEDS ORDERED: FERROUS GLUCON324 M7 PO (13:27)
[2025-09-02] MEDS ORDERED: FOLI1 PO (13:27)
[2025-09-02] MEDS ORDERED: IBUP400 PO (13:28)
[2025-09-02] MEDS ORDERED: MEGESTROL400 MG/13 PO (13:29)
[2025-09-02] MEDS ORDERED: NARCAN4 M1 (13:30)
[2025-09-02] MEDS ORDERED: MELA3 PO (13:30)
[2025-09-02] MEDS ORDERED: SODCHL1 PO (13:31)
[2025-09-02] MEDS ORDERED: SYMBICORT 16010.2 GM INH (13:33)
[2025-09-02] MEDS ORDERED: Calcium Carbon500 MG PO (13:33)
[2025-09-02] MEDS ORDERED: THERA-D2000 UNIT PO (13:34)
[2025-09-02 15:42] VITALS: BP 159/61
--- NOTE | 2025-09-02 18:16 | NUR ---
SHIFT SUMMARY PT IS A/OX4, TOLERATING REGULAR DIET. PT DENIES N/V. PT REPORTING PAIN IS POORLY MANAGED. MEDICATED PER EMAR. ENCOURAGED REPOSITIONING. WOUND CARE DONE THIS SHIFT PER DR BRENNRE VERBAL ORDERS. OSTOMY IS HAVING OUTPUT, FOLLEY IN PLACE DRAINING TO GRAVITY. PLAN IS TO TREAT W/ ANTIBIOTICS. CALL LIGHT IN REACH BED IN LOWEST POSITION.
--- NOTE | 2025-09-02 20:04 | NUR ---
REPORT CALLED TO GISSEL BANGURA RN. PT TO BE TX TO ROOM 311.
[2025-09-02 20:35] VITALS: BP 174/60
[2025-09-02 22:05] VITALS: BP 181/63
--- NOTE | 2025-09-02 22:27 | NUR ---
TRANSFER NOTE REPORT RECIEVED FROM ANTON IN SURGICAL FLOOR. PATIENR ARRIVED TO MEDICAL UNIT AROUND 2014. PATIENT A/OX4, ABLE TO MAKE NEEDS KNOWN. REPORTS SHE LIVES WITH HER COUSIN AND AUNT AND USES SLIDE BOARD TO TRANSFER TO WHEELCHAIR, WC BOUND AT BASELINE. PLEASANT AND COOPERATIVE WITH CARE, PAIN ADEQUETELY CONTROLLED AND MEDICATED PRIOR TO ARRIVAL TO ROOM 311. SBP >170 UPON ARRIVAL, HOSPITALIST NOTIFIED AND PRN HYDRALAZINE ORDERED AND ADMINISTERED PER DEC. HOSPITALIST ALSO NOTIFIED THAT PRESSURE INJURIES TO COCCYX AND SACRUM WITHOUT DRESSING IN PLACE, NO WOUND CARE ORDERS RECIEVED BUT Q2 REPOSITIONING ORDERS RECIEVED. NO OTHER CONCERNS AT THIS TIME, WILL CONTINUE TO MONITOR.
[2025-09-02 23:59] VITALS: BP 165/59
[2025-09-03 03:50] VITALS: BP 168/55
--- NOTE | 2025-09-03 05:40 | NUR ---
SHIFT SUMMARY PATIENT A/OX4, ABLE TO MAKE NEEDS KNOWN. PLEASANT AND COOPERATIVE WITH CARE. UPON ARRIVAL TO [facility], PATIENT IV TO RFA REMOVED DUE TO LEAKING. LEFT FA IV LEAKING BUT POSITIONAL, DRESSING CHANGED AND WAS FUNCTIONING PROPERLY FOR A SHORT TIME THEN IV ACCESS WAS LOST. DIFFICULTY REGAINING IV ACCESS. POWERGLIDE PALCED TO LUE. IV ABX ADMINISTERED LATE DUE TO DIFFCULTY WITH OBTAINING IV ACCESS, PHARMACY NOTIFIED AND IV ABX RESCHEDULED FOR APPROPRIATE TIMES AND [facility]AN[facility] DRAW RESCHEDULED. PATIENT WITH OSTOMY TO LLQ, STOMA PROTRUDING BUT DAIV RED AND OTHERWISE WNL. PATIENT WITH CHRONIC SAM CATHETER IN PLACE, DRAINING JUAN URINE. PATIENT COMPLAINING OF PAIN TO WOUNDS AND ABDOMEN/PELVIS, MEDICATED PER DEC. DIFFICULTY MANAGING PATIENT'S PAIN THROUGHOUT THE NIGHT. PATIENT WIHT MINIMAL SLEEP THIS SHIFT DUE TO PAIN. Q2 REPOSITIONING. PRN HYDRALAZINE MINIMALLY EFFECTIVE, PATIENT REMAINS HYPERTENSIVE WITH LAST SBP 168. 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 NO OTHER CONCERNS AT THIS TIME, WILL CONTINUE TO MONITOR.
[2025-09-03 07:32] VITALS: BP 194/69
[2025-09-03] MEDS ORDERED: Piperacillin/Tazobactam Sod 3.375 GM in NS 100 ML IV SCH (08:00)
[2025-09-03] MEDS ORDERED: Insulin Glargine 100 Unit/ML 3 ML SYR SC SCH (09:00)
[2025-09-03] MEDS ORDERED: Morphine Sulfate 4 MG/1 ML Injection IV PRN ×2 (10:10→13:25)
[2025-09-03] MEDS ORDERED: Arginine/Glutamine/Calcium Hmb 1 Packet PO SCH (10:40)
[2025-09-03] MEDS ORDERED: Albuterol HFA200 ACT/6.7 GM INH INH SCH (10:55)
[2025-09-03] MEDS ORDERED: Formoterol/Mometasone MDI 5/200 mcg 13 GM INH SCH (10:55)
[2025-09-03 14:42] LABS: Vancomycin, Trough 16.7 ug/mL (5.0-10.0)
[2025-09-03 15:05] VITALS: BP 162/55
[2025-09-03 15:37] LABS: Ferritin, Serum 265.0 ng/mL (8-252); Total Iron Binding Capacity 217.0 ug/dL (250-450)
[2025-09-03] MEDS ORDERED: CARV6.25 PO (17:14)
[2025-09-03] MEDS ORDERED: HYDMOR4 PO (17:14)
[2025-09-03 20:39] VITALS: BP 172/62
[2025-09-03] MEDS ORDERED: DULoxetine HCL 60 MG Capsule DR PO SCH (21:00)
[2025-09-04] MEDS ORDERED: Albuterol HFA200 ACT/6.7 GM INH INH PRN (01:40)
[2025-09-04 02:08] VITALS: BP 186/74
--- NOTE | 2025-09-04 03:40 | NUR ---
SHIFT SUMMARY PT IS A&OX4. ABLE TO MAKE NEEDS KNOWN. ROOM AIR. PT HAS BEEN INTERMITTENTLY TEARFUL AND VOCAL THROUGHOUT SHIFT DUE TO PAIN NOT BEING MANAGED. POWER GLIDE TO GABE WITH SEVERAL IV ANTIBIOTICS. CHRONIC SAM CATHETER DRAINING TO GRAVITY, CHANGED ON ADMISSION. NEW ORDER RECEIVED FOR NIGHTLY TRAZODONE. SCATTERED WOUNDS THROUGHOUT WITH MINIMAL DRAINAGE. Q2 REPOSITIONING. PATIENT LYING IN BED WITH CALL LIGHT IN REACH.
[2025-09-04 05:39] VITALS: BP 180/57
[2025-09-04 06:16] LABS: Hematocrit 25.9 % (33.0-51.0); Hemoglobin 8.7 g/dL (11.5-16.0); Mean Corpuscular HGB Conc 33.6 g/dL (31.5-36.5); Mean Corpuscular Volume 90 fL (80-100); NRBC ABSOLUTE 0.00 K/mm3 (0.00-0.02); NRBC Auto 0.0 /100 WBC (0.0-0.2); Platelet Count 288 K/mm3 (150-400); RDW Coefficient Variation 13.9 % (11.7-14.2); RDW Standard Deviation 45.5 fL (35.1-46.3)
[2025-09-04 06:34] LABS: Anion Gap 10.0 mmol/L (3-11); Blood Urea Nitrogen 7.0 mg/dL (8-24); CO2, Blood 26.0 mmol/L (21-32); Calcium, Blood 8.0 mg/dL (8.5-10.1); Chloride, Blood 101.0 mmol/L (98-108); Creatinine, Blood 0.59 mg/dL (0.40-1.00); Glucose, Blood 173.0 mg/dL (70-99); Potassium, Blood 3.9 mmol/L (3.5-5.5); Sodium, Blood 133.0 mmol/L (136-145)
[2025-09-04 07:25] VITALS: BP 146/53
[2025-09-04] MEDS ORDERED: Folic Acid 1 MG TAB PO SCH (09:00)
[2025-09-04] MEDS ORDERED: Ascorbic Acid 250 MG Chew PO SCH (09:00)
[2025-09-04] MEDS ORDERED: Cholecalciferol 1000 Unit Tablet (=25MCG) PO SCH (09:00)
[2025-09-04 13:42] LABS: Vancomycin, Trough 18.8 ug/mL (5.0-10.0)
[2025-09-04] MEDS ORDERED: Iron Dextran 50 MG / ML 2ML Vial IV ONE (15:00)
[2025-09-04] MEDS ORDERED: Iron Dextran 975 MG in NS 250 ML IV SCH (16:00)
[2025-09-04] MEDS ORDERED: CefTRIAXone Sodium 1,000 MG in NS 100 ML IV SCH (16:00)
[2025-09-04 16:47] VITALS: BP 153/55
--- NOTE | 2025-09-04 16:48 | NUR ---
PALLIATIVE CARE CONSULT: CONSULT RECIEVED FOR SYMPTOM MANAGEMENT. REVIEWED MEDICAL RECORD. DISCUSSED IN MDR. PT SYMPTOMS OF PAIN ARE NOT MANAGED. PT DOES NOT HAVE POLST OR AD ON FILE BUT FOUND POLST THROUGH [facility] WHICH STATES DNR LIMITED. PT IS CURRENTLY A FULL CODE. WILL CLARIFY WITH PT. ACCORDING TO TODAY'S PROGRESS NOTE DR. MAURO INCREASED OXYCONTIN TO ADDRESS PAIN. TITRATION IN PROGRESS. WILL REVIEW EFFECTIVENESS TOMORROW.
[2025-09-04] MEDS ORDERED: Miconazole Nitrate 2% 85 GM PWD TOP SCH (17:40)
--- NOTE | 2025-09-04 17:42 | NUR ---
PALLIATIVE CARE VISIT: MET WITH PT IN HER ROOM. PT IS AWAKE AND AGREEABLE TO VISIT. DISCUSSED SYMPTOM MANAGEMENT. PT REPORTS PAIN HAS BEEN UNMANAGED EVEN WHEN SHE WAS AT [facility]. PT REPORTS HER PAIN DULL, ACHING, SHARP AND STABBING AT TIMES TO ABD/GROIN AREA. MOVEMENT AND SITTING UP AGRAVATE HER PAIN. PT REPORTS FENTANYL DID NOT RELIEVE HER PAIN, DILAUDID MADE HER ANGRY. TRAMADOL DID NOT WORK IN THE PAST. SHE DOES NOT KNOW IF ADVIL IS HELPING. PT REPORTS MORPHINE IS ONLY MEDICINE THAT SHE KNOWS RELIEVES HER PAIN. SHE TOOK OXYCONTIN THIS MORNING AND REPORTS "IT DIDN'T REALLY HELP THAT MUCH". PT INFORMS ME SHE IS GOING TO DISCHARGE TOMORROW. ADVISED SHE CANNOT BE TAKING IV MORPHINE WHEN SHE DISCHARGES AND NEED TO WORK ON TAKING ORAL MEDICATIONS FOR PAIN TO ENSURE PAIN IS MANAGED PRIOR TO DISCHARGE. PT V/U. PT REPORTS ODOR FROM WOUND BOTHERS HER. SHE IS AGREEABLE TO TRYING MICONAZOLE POWDER TO WOUNDS FOR ODOR CONTROL. PT REPORTS SHE HAS NAUSEA OCCASIONALLY. ZOFRAN AVAILABLE. PT REPORTS GOOD APPETITE AND DENIES WEIGHT LOSS. PT REPORTS SHE FEELS DEPRESSED "BECAUSE I FEEL LIKE I WILL BE IN PAIN FOR THE REST OF MY LIFE". PT C/O LACK OF SLEEP DUE TO STAFF WAKING HER ALL NIGHT. PT WOULD APPRECIATE CARE TO BE BUNDLED TO LESSEN INTERRUPTIONS IN HER SLEEP. SHE REPORTS TRAZADONE USUALLY WORKS. PLACED SIGN OUTSIDE DOOR REQUESTING STAFF TO BUNDLE CARE AT NIGHT AND MINIMIZE WAKING PT. CODE STATUS: FOUND POLST THROUGH [facility] STATING DNR LIMITED DATED 04/23/2025. EDUCATED PT ON CODE STATUS. PT STATED SHE WOULD NOT WANT TO BE INTUBATED OR HAVE CPR. SHE AGREES TO CODE STATUS CHANGED TO DNR. UPDATED PRIMARY RN ON ABOVE CONVERSATION. UPDATED DR. MAURO. ORDER RECEIVED FOR DNR CODE STATUS, FLAGYL POWDER APPLIED FOR ODOR CONTROL AFTER WOUND CARE COMPLETED. ADDED PARAMETERS TO MORPHINE TO USE OXYCODONE FIRST FOR BREAKTHROUGH PAIN AND WILL RE-EVALUATE EFFECTIVENESS OF PAIN MEDICINE BEFORE MAKING CHANGES. SUGGESTED MSCONTIN AND CELEBREX FOR ALTERNATIVE PAIN MANAGEMENT MEDICATIONS.
--- NOTE | 2025-09-04 18:41 | NUR ---
SUMMARY PAIN MANAGEMENT WITH ORAL AND IV MEDICATIONS. PT STATES PAIN PRIMARILY A 7/10 EVEN AFTER IV MORPHINE. PALLIATIVE CONSULTED FOR PAIN MANAGEMENT THIS EVENING. POLST FOUND VIA PALLIATIVE AND CODE STATUS CHANGED TO DNR. WOUND CARE COMPLETED PER ORDERS, PER DR. MAURO AFTER SPEAKING WITH DR. BRENNER SHE WOULD LIKE CALCIUM ALGINATE AND COVERED WITH NONADHERENT DAILY. COLOSTOMY TO LLQ REQUIRED CHANGING TODAY IT WAS TOO FULL ON FIRST ASSESSMENT AND LEAKING UNDER DRESSING. STOMA PROTRUDES BUT IS WNL IN COLOR DOES NOT APPEAR EDEMATOUS. LARGER BAG PLACED FOR COLOSTOMY COLLECTION. PT NOW ON TWO SCHEDULED PAIN MANAGMENT MEDS. IV ANTIBX CHANGED TODAY PER DR. MAURO FROM CLINDAMYCIN TO ROCEPHIN. OTHER TWO REMAINED THE SAME. TEST DOSE OF IV IRON GIVEN AND TOLERATED WELL, FULL DOSE NOW RUNNING. IV ROCEPHIN LATE DUE TO OTHER IV INFUSION ADMINISTRATION TIMES. PT ABLE TO SLIDE ONTO WHEELCHAIR 1 ASSIST. IV MORPHINE STIL AVAILABLE BUT TRYING TO MANAGE MORE WITH ORAL MEDS.
[2025-09-04] MEDS ORDERED: Zinc Oxide Ointment 30 GM TOP PRN (19:25)
[2025-09-04 21:30] VITALS: BP 153/50
[2025-09-05 03:54] VITALS: BP 186/54
--- NOTE | 2025-09-05 05:35 | NUR ---
SHIFT SUMMARY PT UP SEVERAL TIMES THROUGHOUT NIGHT WITH COMPLAINTS OF PAIN. PAIN LEVEL NEVER BELOW AN 8 DESPITE MANAGEMENT WITH ORAL AND IV PAIN MEDICATION. PT HAS SCHEDULED BID OXYCONTIN, Q4 ROXICODONE AND MORPHINE PRN. WOUND CARE ORDERS PLACED ON 09/04 FOR CALCIUM ALGINATE/NONADHERENT TO PELVIC AREA AND MEPILEX TO COCCYX DAILY. PT HAS ESTABLISHED COLOSTOMY IN [facility] WITH PROTRUDING STOMA. APPLIANCE CHANGED 09/04. PT IS A LIFT FOR MOBILITY. SHE HAS HISTORY OR PRIOR R AKA. SCD'S ARE ORDERED BUT PT REFUSING. DIET IS CARB CONSISTENT. CHRONIC SAM IN PLACE. NEW SAM PLACED ON ADMISSION ON 09/02. SHE IS ON CONTACT ISOLATION FOR MRSA. SHE IS TYPE 2 DIABETIC WITH ACHS BLOOD SUGAR CHECKS. PLAN IS FOR PT TO DISCHARGE TO SNF, POSSIBLY ON MONDAY IF PAIN IS APPROPRIATELY MANAGED. SLIGHTLY ELEVATED BP PRIOR TO 0500 ADMINISTRATIO OF PAIN MEDICATION. REPEAT BP AT 0550 WAS 169/63. VITAL SIGNS ARE OTHERWISE STABLE. WILL CONTINUE TO MONITOR AND REPORT TO DAY SHIFT RN.
[2025-09-05 05:51] VITALS: BP 169/63
[2025-09-05 07:32] VITALS: BP 173/53
[2025-09-05] MEDS ORDERED: Insulin Glargine 100 Unit/ML 3 ML SYR SC SCH (09:00)
[2025-09-05] MEDS ORDERED: CELEXA40 M1 PO (12:55)
[2025-09-05] MEDS ORDERED: LOSA50 PO (12:56)
[2025-09-05] MEDS ORDERED: VISBIOME 112.51 EACH PO (12:56)
[2025-09-05] MEDS ORDERED: DULCOLAX400 MG/5 M PO (12:57)
[2025-09-05] MEDS ORDERED: MICONAZOLE NITR85 GM TOP (12:58)
[2025-09-05] MEDS ORDERED: OXYC10TA19 PO (12:59)
[2025-09-05] MEDS ORDERED: DULERA 100 MCG/13 GM INH (12:59)
[2025-09-05] MEDS ORDERED: TRAZ150T57 PO (13:00)
[2025-09-05] MEDS ORDERED: OXYC5 PO (13:00)
[2025-09-05] MEDS ORDERED: ENDIT56.7 GM (13:01)
[2025-09-05] MEDS ORDERED: VERA120ERB PO (13:01)
[2025-09-05] MEDS ORDERED: OXYC10ER PO (13:02)
--- NOTE | 2025-09-05 13:24 | NUR ---
DISCHARGE NOTE. PATIENT DRESSED AFTER SHOWER, IN WHEEL CHAIR WITH FAMILY AT BEDSIDE. D/C MEDICATIONS DISCUSSED, PLAN FOR FOLLOW UP DISCUSSED WITH PATIENT AND FAMILY. POWERGLIDE REMVOED PRIOR TO D/C. PATIENT AND FAMILY DECLINE FURTHER QUESTIONS.
== END 2025-09-05 14:22 | disposition home health service (06) | DRG 638 ==
LOC: ER 16:54 → SURS 23:24 → MEDS 23:24 → SURS 09-02 01:42 → MEDS 09-02 20:22 → ENPENDDIS 09-05 12:38 → MEDS 09-05 14:22
PROVIDERS: Internal Medicine; Student in an Organized Health Care Education/Training Program; ADMIT Internal Medicine
PROC: 3E03329 Introduction of Other Anti-infective into Peripheral Vein, Percutaneous Approach (ICD-10-PCS; 2025-09-01)
PROC: 3E02340 Introduction of Influenza Vaccine into Muscle, Percutaneous Approach (ICD-10-PCS; 2025-09-01)
PROC: 0T9B70Z Drainage of Bladder with Drainage Device, Via Natural or Artificial Opening (ICD-10-PCS; principal; 2025-09-02)
DX: E11.69 Type 2 diabetes mellitus with other specified complication (principal); E87.1 Hypo-osmolality and hyponatremia; I42.2 Other hypertrophic cardiomyopathy; M86.28 Subacute osteomyelitis, other site; E11.65 Type 2 diabetes mellitus with hyperglycemia; I25.10 Atherosclerotic heart disease of native coronary artery without angina pectoris; I10 Essential (primary) hypertension; N76.82 Fournier disease of vagina and vulva; B96.1 Klebsiella pneumoniae [K. pneumoniae] as the cause of diseases classified elsewhere; F17.210 Nicotine dependence, cigarettes, uncomplicated; I45.10 Unspecified right bundle-branch block; D50.9 Iron deficiency anemia, unspecified; F41.9 Anxiety disorder, unspecified; K21.9 Gastro-esophageal reflux disease without esophagitis; Z23 Encounter for immunization; Z90.49 Acquired absence of other specified parts of digestive tract; Z90.710 Acquired absence of both cervix and uterus; Z86.79 Personal history of other diseases of the circulatory system; Z95.5 Presence of coronary angioplasty implant and graft; Z89.611 Acquired absence of right leg above knee; Z85.42 Personal history of malignant neoplasm of other parts of uterus; Z79.4 Long term (current) use of insulin; Z79.899 Other long term (current) drug therapy; Z79.51 Long term (current) use of inhaled steroids; Z88.8 Allergy status to other drugs, medicaments and biological substances; Z79.82 Long term (current) use of aspirin; Z87.19 Personal history of other diseases of the digestive system
CPT/HCPCS: 36415; 51702; 71045; 72193; 74177; 80048; 80053; 80202; 81001; 82728; 82947; 83036; 83540; 83550; 83605; 83690; 83735; 83880; 84145; 84484; 85025; 85027; 85651; 86140; 87070; 87075; 87077; 87086; 87186; 87205; 87637; 93005; 93010; 93306; 93356; 94640; 94664; 94760; 96365-59; 96368; 96375-59; 99285-25; A9270; C1751; J0696; J0736; J1171; J1650; J1750; J1815; J2270; J2543; J3010; J3373; J7050; Q9967

== ENCOUNTER 2025-09-15 20:59 | Inpatient (IN) | payer OTHER ==
[~2025-09-15] VITALS: Ht 157.5 cm; Wt 68.0 kg
[~2025-09-15 20:59] MED LIST changes: +BISA10S PR; +CARV6.25 PO; +CELEXA40 M1 PO; +CYCL10 PO; +Calcium Carbon500 MG PO; +DULCOLAX400 MG/5 M PO; +DULERA 100 MCG/13 GM INH; +ENDIT56.7 GM; +ESCI20 PO; +FENTANYL1 EAC7 TOP; +FERROUS GLUCON324 M7 PO; +FOLI1 PO; +HYDMOR4 PO; +IBUP400 PO; +LOSA50 PO; +MASOPHEN500 M2 PO; +MEGESTROL400 MG/13 PO; +MELA3 PO; +MICONAZOLE NITR85 GM TOP; +NARCAN4 M1; +OXYC10ER PO; +OXYC10TA19 PO; +OXYC5 PO; +SODCHL1 PO; +SYMBICORT 16010.2 GM INH; +THERA-D2000 UNIT PO; +TRAZ150T57 PO; +VERA120ERB PO; +VISBIOME 112.51 EACH PO; +VITAMIN C125 MG PO
[2025-09-15] MEDS ORDERED: Ondansetron HCl 2 MG / ML 2ML Vial IV PRN (21:15)
[2025-09-15 21:22] LABS: BASOPHILS ABSOLUTE AUTO 0.07 K/mm3 (0.00-0.23); BASOPHILS PERCENT AUTO 1 % (0-2); EOSINOPHILS ABSOLUTE AUTO 0.01 K/mm3 (0.00-0.68); EOSINOPHILS PERCENT AUTO 0 % (0-6); Hematocrit 30.4 % (33.0-51.0); Hemoglobin 10.1 g/dL (11.5-16.0); IMMATURE GRAN ABSOLUTE AUTO 0.22 K/mm3 (0.00-0.10); IMMATURE GRAN PERCENT AUTO 2 % (0-1); LYMPHOCYTES ABSOLUTE AUTO 1.65 K/mm3 (0.84-5.20); LYMPHOCYTES PERCENT AUTO 12 % (21-46); MONOCYTES ABSOLUTE AUTO 0.76 K/mm3 (0.16-1.47); MONOCYTES PERCENT AUTO 5 % (4-13); Mean Corpuscular HGB Conc 33.2 g/dL (31.5-36.5); Mean Corpuscular Volume 89 fL (80-100); NEUTROPHILS ABSOLUTE AUTO 11.38 K/mm3 (1.96-9.15); NEUTROPHILS PERCENT AUTO 81 % (41-73); NRBC ABSOLUTE 0.00 K/mm3 (0.00-0.02); NRBC Auto 0.0 /100 WBC (0.0-0.2); Platelet Count 431 K/mm3 (150-400); RDW Coefficient Variation 14.7 % (11.7-14.2); RDW Standard Deviation 48.2 fL (35.1-46.3)
[2025-09-15 21:41] LABS: Alanine Aminotransfer (ALT/SGP 22.0 U/L (12-78); Albumin, Blood 2.7 g/dL (3.4-5.0); Albumin/Globulin Ratio 0.5 (0.8-1.8); Anion Gap 10.0 mmol/L (3-11); Aspartate Aminotrans (AST/SGOT 17.0 U/L (12-37); Bilirubin, Total 0.5 mg/dL (0.1-1.0); Blood Urea Nitrogen 15.0 mg/dL (8-24); CO2, Blood 27.0 mmol/L (21-32); Calcium, Blood 9.5 mg/dL (8.5-10.1); Chloride, Blood 96.0 mmol/L (98-108); Creatinine, Blood 0.61 mg/dL (0.40-1.00); Globulin, Blood 5.0 g/dL (2.2-4.0); Glucose, Blood 256.0 mg/dL (70-99); Potassium, Blood 4.5 mmol/L (3.5-5.5); Sodium, Blood 128.0 mmol/L (136-145); Total Protein, Blood 7.7 g/dL (6.4-8.2)
[2025-09-15] MEDS ORDERED: NS 1,000 ML IV SCH (22:00)
[2025-09-15] MEDS ORDERED: FentaNYL Citrate 50 MCG/ML 2 ML Injection IV PRN (22:00)
[2025-09-15] MEDS ORDERED: Ampicillin Sod/Sulbactam Sod 3 GM in NS 100 ML IV ONE (22:15)
[2025-09-15] MEDS ORDERED: DiphenhydrAMINE HCl 50 MG/ML 1ML Vial IV ONE (23:20)
[2025-09-15] MEDS ORDERED: Prochlorperazine Edisylate 10 mg Vial IV ONE (23:20)
[2025-09-15 23:29] LABS: Source, Urine Foley catheter
[2025-09-15 23:41] LABS: Bilirubin, Urine Neg (Neg); Glucose Qualitative, Urine 2+ (Neg); Ketones, Urine 2+ (Neg); Leukocyte Esterase, Urine 2+ (Neg); Protein, Urine 3+ (Neg); Specific Gravity, Urine 1.015 (1.003-1.022); Urobilinogen, Urine NORM (Normal)
[2025-09-15 23:43] LABS: Color, Urine Yellow (P-Yellow)
[2025-09-16] MEDS ORDERED: Ondansetron HCl 2 MG / ML 2ML Vial IV PRN (01:20)
[2025-09-16] MEDS ORDERED: FentaNYL Citrate 50 MCG/ML 2 ML Injection IV PRN (01:20)
[2025-09-16] MEDS ORDERED: Metoclopramide HCl 5MG / ML 2ML Vial IV PRN (01:25)
[2025-09-16] MEDS ORDERED: NS 1,000 ML IV SCH (01:25)
[2025-09-16] MEDS ORDERED: FLU VACC TS2025-26(6MOS UP)/PF 45 MCG/0.5 ML SYRINGE IM SCH (01:25)
[2025-09-16] MEDS ORDERED: Pantoprazole Sodium 40 MG Injection IV SCH (01:30)
[2025-09-16 03:54] VITALS: BP 186/68
[2025-09-16] MEDS ORDERED: HYDROmorphone HCl/Pf 1MG SYR IV PRN (04:35)
[2025-09-16 05:54] LABS: BASOPHILS ABSOLUTE AUTO 0.05 K/mm3 (0.00-0.23); BASOPHILS PERCENT AUTO 1 % (0-2); EOSINOPHILS ABSOLUTE AUTO 0.01 K/mm3 (0.00-0.68); EOSINOPHILS PERCENT AUTO 0 % (0-6); Hematocrit 26.4 % (33.0-51.0); Hemoglobin 8.9 g/dL (11.5-16.0); IMMATURE GRAN ABSOLUTE AUTO 0.16 K/mm3 (0.00-0.10); IMMATURE GRAN PERCENT AUTO 2 % (0-1); LYMPHOCYTES ABSOLUTE AUTO 1.27 K/mm3 (0.84-5.20); LYMPHOCYTES PERCENT AUTO 13 % (21-46); MONOCYTES ABSOLUTE AUTO 0.70 K/mm3 (0.16-1.47); MONOCYTES PERCENT AUTO 7 % (4-13); Mean Corpuscular HGB Conc 33.7 g/dL (31.5-36.5); Mean Corpuscular Volume 87 fL (80-100); NEUTROPHILS ABSOLUTE AUTO 7.83 K/mm3 (1.96-9.15); NEUTROPHILS PERCENT AUTO 78 % (41-73); NRBC ABSOLUTE 0.00 K/mm3 (0.00-0.02); NRBC Auto 0.0 /100 WBC (0.0-0.2); Platelet Count 323 K/mm3 (150-400); RDW Coefficient Variation 14.8 % (11.7-14.2); RDW Standard Deviation 46.4 fL (35.1-46.3)
[2025-09-16 06:03] LABS: U Amphetamine Screen Not Detected; U Barbiturate Screen Not Detected; U Benzodiazapine Screen Not Detected; U Buprenorphine Screen Not Detected; U Cannabinoids Screen DETECTED; U Cocaine Screen Not Detected; U Methadone Screen Not Detected; U Methamphetamine Screen Not Detected; U Opiates Screen Not Detected; U Oxycodone Screen DETECTED; U Phencyclidine Screen Not Detected
[2025-09-16] MEDS ORDERED: Magnesium Hydroxide Conc 10 ML UDC PO PRN (06:40)
[2025-09-16] MEDS ORDERED: Miconazole Nitrate 2% 85 GM PWD TOP PRN (07:10)
[2025-09-16] MEDS ORDERED: Albuterol HFA200 ACT/6.7 GM INH INH PRN (07:10)
[2025-09-16] MEDS ORDERED: Formoterol/Mometasone MDI 5/100 mcg 13 GM INH SCH (07:10)
[2025-09-16 07:15] LABS: Alanine Aminotransfer (ALT/SGP 21.0 U/L (12-78); Albumin, Blood 2.3 g/dL (3.4-5.0); Albumin/Globulin Ratio 0.5 (0.8-1.8); Anion Gap 11.0 mmol/L (3-11); Aspartate Aminotrans (AST/SGOT 16.0 U/L (12-37); Bilirubin, Total 0.4 mg/dL (0.1-1.0); Blood Urea Nitrogen 12.0 mg/dL (8-24); CO2, Blood 23.0 mmol/L (21-32); Calcium, Blood 8.7 mg/dL (8.5-10.1); Chloride, Blood 100.0 mmol/L (98-108); Creatinine, Blood 0.52 mg/dL (0.40-1.00); Globulin, Blood 4.4 g/dL (2.2-4.0); Glucose, Blood 211.0 mg/dL (70-99); Potassium, Blood 3.9 mmol/L (3.5-5.5); Sodium, Blood 130.0 mmol/L (136-145); Total Protein, Blood 6.7 g/dL (6.4-8.2)
[2025-09-16] MEDS ORDERED: Zinc Oxide Ointment 30 GM TOP PRN (07:15)
[2025-09-16] MEDS ORDERED: Insulin Human Lispro 100 Units/ML 3ML Syringe SC SCH (07:30)
--- NOTE | 2025-09-16 07:38 | NUR ---
PT ARRIVED TO UNIT @0305 WITH COPIUS AMOUNTS OF WOUND EXUDATE UP TO THE PATIENTS BACK SATURATING THE PICKARD PAD. OK TO THROW OUT PT'S SOILED BLOUSE PER PT. PT PRESENTS WITH LARGE WOUNDS TO PERINEAL AREA, WET TO DRY WOUND CARE APPLIED. NO C/O N/V ON ARRIVAL TO THE FLOOR. PAIN AT 9/10 ON ARRIVAL TO FLOOR, PAIN MANAGEMENT STRATEGY DISCUSSED WITH HOSPITALIST FRANSICO Q4 ADDED. URINE AND FECAL SAMPLES COLLECTED AND PENDING. PT IS PLEASANT AND USES CALL LIGHT APPROPRIATELY. VOIDING PER OSTOMY AND SAM CATHETER. SMALL FORMED BROWN BM PER OSTOMY, SLIGHT PROLAPSE OBSERVED MD AWARE.
[2025-09-16 07:41] VITALS: BP 172/68
[2025-09-16 08:03] LABS: Campylobacter Sp Not Detected (NOT DETECT); E. Coli O157 Not Detected (NOT DETECT); Enteroaggregative E. coli-EAEC Not Detected (NOT DETECT); Enteropathogenic E. coli-EPEC Not Detected (NOT DETECT); Enterotoxigenic E. coli-ETEC Not Detected (NOT DETECT); Salmonella Sp Not Detected (NOT DETECT); Shiga Toxin-prod E. coli-STEC Not Detected (NOT DETECT); Shigella/Enteroin E. coli-EIEC Not Detected (NOT DETECT); Vibrio Sp Not Detected (NOT DETECT)
[2025-09-16] MEDS ORDERED: Ascorbic Acid 250 MG Chew PO SCH (09:00)
[2025-09-16] MEDS ORDERED: Multivitamins 1 Tab PO SCH (09:00)
[2025-09-16] MEDS ORDERED: Lactobacil 2-S.Thermo-Bifido 1 1 Cap PO SCH (09:00)
[2025-09-16] MEDS ORDERED: Insulin Glargine 100 Unit/ML 3 ML SYR SC SCH (09:00)
[2025-09-16] MEDS ORDERED: Zinc Sulfate 220 MG Cap (Provides 50MG) PO SCH (09:00)
[2025-09-16] MEDS ORDERED: Ampicillin Sod/Sulbactam Sod 3 GM in NS 100 ML IV SCH (12:00)
--- NOTE | 2025-09-16 14:16 | NUR ---
PT LOST IV ACCESS DURING DILAUDID ADMINISTRATION AT 1255. PT REPORTS NO RELIEF AFTER DOSE. PT PAIN 06/25. DR. GARCIA NOTIFIED, PER SCOTT BAKER TO ORDER OT IV DILAUDID 2 MG NOW
[2025-09-16] MEDS ORDERED: HYDROmorphone HCl/Pf 1MG SYR IV ONE (14:25)
--- NOTE | 2025-09-16 16:12 | NUR ---
SUMMARY PT CONTNUES TO HAVE SEVERE PAIN IN ABDOMEN AND IN GROIN/LEGS WHERE WOUNDS ARE NOTED. TREATED PAIN PER EMAR, PER PT DILAUDID SOMEWHAT EFFECTIVE. ALERT AND ORIENTED X4. POSITIVE FOR C.DIFF INCLUDING TOXINS. PER MD, WILL TREAT C.DIFF IF HAVING MULTIPLE EPISODES OF DIARRHEA. PT HAS OSTOMY. STOOL OUTPUT IS MINIMAL AND LOOSE/PASTY, NOT WATERY. WILL BE ASSESSING FOR ANY CHANGES TO STOOL OUTPUT. CHRONIC SAM IN PLACE. PT DENIES N/V THIS SHIFT. CALLS APPROPRIATELY
[2025-09-16] MEDS ORDERED: Enoxaparin 40 MG/0.4 ML SYR SC SCH (17:00)
[2025-09-16] MEDS ORDERED: ONDA4 PO (18:59)
--- NOTE | 2025-09-16 19:22 | NUR ---
WOUND CARE COMPLETED THIS SHIFT
[2025-09-16 20:14] VITALS: BP 104/54
[2025-09-16] MEDS ORDERED: OxyCODONE HCL 15 MG TAB.SR.12H PO SCH (21:00)
[2025-09-16 23:35] VITALS: BP 122/49
[2025-09-16] MEDS ORDERED: Ketorolac Tromethamine 15mg Vial IV PRN (23:40)
[2025-09-17 04:33] VITALS: BP 107/50
--- NOTE | 2025-09-17 04:45 | NUR ---
SHIFT SUMMARY: PT AOX4, CALLS APPROPRIATELY, ABLE TO MAKE NEEDS KNOWN. PT FREQUENTLY REQUESTS PAIN MEDS THOUGH NOT APPEARING IN DISTRESS. PAIN MEDICATED PER EMR. SEEMS TO FORGET WHEN MEDICATIONS WERE TAKEN. PT TOLERATING MEDICATIONS WELL AND NO ACUTE OVERNIGHT EVENTS. PT IN BED RESTING, BED IN LOWEST POSITION, CALL LIGHT IN REACH. CONTINUING CARE.
[2025-09-17 06:01] LABS: BASOPHILS ABSOLUTE AUTO 0.08 K/mm3 (0.00-0.23); BASOPHILS PERCENT AUTO 1 % (0-2); EOSINOPHILS ABSOLUTE AUTO 0.22 K/mm3 (0.00-0.68); EOSINOPHILS PERCENT AUTO 2 % (0-6); Hematocrit 24.7 % (33.0-51.0); Hemoglobin 8.6 g/dL (11.5-16.0); IMMATURE GRAN ABSOLUTE AUTO 0.42 K/mm3 (0.00-0.10); IMMATURE GRAN PERCENT AUTO 4 % (0-1); LYMPHOCYTES ABSOLUTE AUTO 3.32 K/mm3 (0.84-5.20); LYMPHOCYTES PERCENT AUTO 32 % (21-46); MONOCYTES ABSOLUTE AUTO 0.89 K/mm3 (0.16-1.47); MONOCYTES PERCENT AUTO 9 % (4-13); Mean Corpuscular HGB Conc 34.8 g/dL (31.5-36.5); Mean Corpuscular Volume 86 fL (80-100); NEUTROPHILS ABSOLUTE AUTO 5.34 K/mm3 (1.96-9.15); NEUTROPHILS PERCENT AUTO 52 % (41-73); NRBC ABSOLUTE 0.00 K/mm3 (0.00-0.02); NRBC Auto 0.0 /100 WBC (0.0-0.2); Platelet Count 234 K/mm3 (150-400); RDW Coefficient Variation 14.6 % (11.7-14.2); RDW Standard Deviation 45.7 fL (35.1-46.3)
[2025-09-17 07:02] LABS: Alanine Aminotransfer (ALT/SGP 19.0 U/L (12-78); Albumin, Blood 2.1 g/dL (3.4-5.0); Albumin/Globulin Ratio 0.5 (0.8-1.8); Anion Gap 14.0 mmol/L (3-11); Aspartate Aminotrans (AST/SGOT 33.0 U/L (12-37); Bilirubin, Total 0.3 mg/dL (0.1-1.0); Blood Urea Nitrogen 15.0 mg/dL (8-24); CO2, Blood 20.0 mmol/L (21-32); Calcium, Blood 8.1 mg/dL (8.5-10.1); Chloride, Blood 92.0 mmol/L (98-108); Creatinine, Blood 0.68 mg/dL (0.40-1.00); Globulin, Blood 3.9 g/dL (2.2-4.0); Glucose, Blood 108.0 mg/dL (70-99); Magnesium, Blood 1.6 mg/dL (1.6-2.4); Potassium, Blood 4.8 mmol/L (3.5-5.5); Sodium, Blood 121.0 mmol/L (136-145); Total Protein, Blood 6.0 g/dL (6.4-8.2)
[2025-09-17] MEDS ORDERED: NS 1,000 ML IV SCH (07:25)
[2025-09-17 07:26] VITALS: BP 117/58
[2025-09-17 11:50] VITALS: BP 150/61
[2025-09-17] MEDS ORDERED: Morphine Sulfate 20 MG/1ML 1 ML Oral Syringe SL PRN (13:05)
--- NOTE | 2025-09-17 13:38 | NUR ---
ROUNDED ON PATIENT. SHE EXPRESSED THAT SHE WAS STRUGGLING WITH HER PAIN CONTROL. SHE RELAYED HER CONVERSATION THAT SHE HAD WITH THE PROVIDER THIS MORNING. WE DISCUSSED THE CHANGING THE DIRECTION OF CARE NOW AND TRANSITIONING TO COMFROT CARE. SHE WAS AGREEABLE TO THIS PLAN. CALLED PROVIDER AND DISCUSSED MEDICATION CHANGES AND ADDING STEROIDS. CALLED PATIENTS ADRIANA SY TO DISCUSS CHANGE IN CARE. SHE EXPRESSED UNDERSTANDING, RELAYED THAT SISSY HAD UPDATED HER ALREADY, AND SHE WAS AGREEABLE TO THIS PLAN.
--- NOTE | 2025-09-17 18:34 | NUR ---
SHIFT SUMMARY PATIENT ALERT AND ORIENTED X 4. COOPERATIVE WITH CARE. MAKE NEEDS KNOWN. NO ACUTE CHANGES THROUGHOUT SHIFT. PATIENT CHANGED TO COMFORT CARE TODAY. WOUND DRESSING CHANGED DURING THIS SHIFT. PATIENT HAS UNCONTROLLED PAIN AND MEDICATED PER EMAR. BED LOCKED AND IN LOWEST POSITION. CALL LIGHT WITHIN REACH.
--- NOTE | 2025-09-18 04:08 | NUR ---
SHIFT SUMMARY ADMITTED FOR N/V. DNR CODE. NOW COMFORT CARE. GOAL IS PAIN MANAGEMENT. I HAVE BEEN ALTERNATING PO AND IV PAIN RX THIS SHIFT, SEE EMAR. SHE IS ON BEDREST. A&O X4. RIGHT AKA. ON RA. REGULAR DIET. SHE IS ABLE TO MAKE HER NEEDS KNOWN. CHRONIC SAM IS PATENT AND DRAINING. OSTOMY IS PATENT. PLAN IS FOR DC HOME ON HOSPICE.
--- NOTE | 2025-09-18 08:23 | NUR ---
ASSUMPTION OF CARE: ASSUMED CARE OF PATIENT. AWAKE DURING SHIFT-CHANGE REPORT. NO C/O PAIN OR DISCOMFORT AT THIS TIME HAVING RECENTLY BEEN MEDICATED. PROVIDED c REQUESTED DIET PEPSI. BED IN LOWEST POSITION. CALL LIGHT WITHIN REACH.
[2025-09-18] MEDS ORDERED: Ativan1 MG PO (13:17)
[2025-09-18] MEDS ORDERED: AMOCLA875 PO (13:17)
[2025-09-18] MEDS ORDERED: HYDMOR4 PO (13:17)
[2025-09-18] MEDS ORDERED: METO10 PO (13:18)
[2025-09-18] MEDS ORDERED: VISBIOME 112.51 EACH PO (13:18)
[2025-09-18] MEDS ORDERED: TRANSDERM-SCOP1 EA13 TD (13:19)
[2025-09-18] MEDS ORDERED: MORP20L SL (13:19)
[2025-09-18] MEDS ORDERED: ZINCTRAL57 GM TOP (13:20)
--- NOTE | 2025-09-18 18:28 | NUR ---
DISCHARGE SUMMARY: A&Ox4. PLEASANT AND COOPERATIVE WITH CARE. CALLS APPROPRIATELY AND IS ABLE TO ADVOCATE NEEDS EFFECTIVELY. BEDREST AND DOES NOT AMBULATE. OSTOMY FOR STOOL OUTPUT AND CHRONIC SAM FOR URINE OUTPUT. MEDS WHOLE c FLUIDS. MEDICATED ROUTINELY C/O PAIN FOR THIS COMFORT CARE PATIENT. PATIENT PROVIDED WITH COPY OF DISCHARGE PLAN AND MEDICATION LIST. MED REC FAXED TO PHARMACY. INSTRUCTED TO FOLLOW-UP WITH PCP IF NEEDED; PLANS FOR HOSPICE INTAKE TOMORROW. ALL QUESTIONS ANSWERED TO DISCHARGING NURSE'S ABILITY AND PATIENT VOICED UNDERSTANDING OF DISCHARGE PLAN. IV REMOVED AND PRESSURE DRESSING PLACED. LEFT FLOOR WITH ALL BELONGINGS AND DISCHARGE PACKET, ESCORTED BY [facility]ER[facility] BROWN. TRANSPORTATION PROVIDED BY FAMILY MEMBER VIA POV.
== END 2025-09-18 14:30 | disposition hospice, home (50) | DRG 392 ==
LOC: ER 20:59 → MEDS 21:00
PROVIDERS: Emergency Medicine; Student in an Organized Health Care Education/Training Program; ADMIT Internal Medicine
PROC: 3E03329 Introduction of Other Anti-infective into Peripheral Vein, Percutaneous Approach (ICD-10-PCS; principal; 2025-09-15)
PROC: 0T9B70Z Drainage of Bladder with Drainage Device, Via Natural or Artificial Opening (ICD-10-PCS; 2025-09-16)
DX: K31.84 Gastroparesis (principal); I42.2 Other hypertrophic cardiomyopathy; K91.850 Pouchitis; M86.8X8 Other osteomyelitis, other site; K52.9 Noninfective gastroenteritis and colitis, unspecified; E11.69 Type 2 diabetes mellitus with other specified complication; I25.10 Atherosclerotic heart disease of native coronary artery without angina pectoris; I10 Essential (primary) hypertension; Z51.5 Encounter for palliative care; Z66 Do not resuscitate; E86.0 Dehydration; N30.90 Cystitis, unspecified without hematuria; Y83.8 Other surgical procedures as the cause of abnormal reaction of the patient, or of later complication, without mention of misadventure at the time of the procedure; E11.43 Type 2 diabetes mellitus with diabetic autonomic (poly)neuropathy; K21.9 Gastro-esophageal reflux disease without esophagitis; F32.A Depression, unspecified; E11.40 Type 2 diabetes mellitus with diabetic neuropathy, unspecified; J44.9 Chronic obstructive pulmonary disease, unspecified; R19.5 Other fecal abnormalities; G47.00 Insomnia, unspecified; F17.210 Nicotine dependence, cigarettes, uncomplicated; F41.9 Anxiety disorder, unspecified; Z95.5 Presence of coronary angioplasty implant and graft; Z89.611 Acquired absence of right leg above knee; Z85.42 Personal history of malignant neoplasm of other parts of uterus; Z88.8 Allergy status to other drugs, medicaments and biological substances; Z79.4 Long term (current) use of insulin; Z79.51 Long term (current) use of inhaled steroids; Z79.82 Long term (current) use of aspirin; Z79.891 Long term (current) use of opiate analgesic; Z90.49 Acquired absence of other specified parts of digestive tract; Z90.710 Acquired absence of both cervix and uterus; Z95.810 Presence of automatic (implantable) cardiac defibrillator; Z93.3 Colostomy status
CPT/HCPCS: 36415; 51702; 74177; 80053; 81001; 82947; 83605; 83690; 83735; 83880; 85025; 87040; 87077; 87086; 87186; 87324; 87507; 93005; 93010; 94640; 94664; 94762; 96365-59; 96372; 96375; 96375-59; 96376; 96376-59; 99285-25; A9270; G0378; J0295; J0780; J1171; J1200; J1650; J1815; J2405; J2470; J2765; J3010; J7030; Q9967